=== PATIENT | female | born 1935 | race Caucasian/White ===

== ENCOUNTER 2017-02-20 18:57 | Inpatient (IN) | payer MEDICARE, OTHER ==
[~2017-02-20] VITALS: Ht 154.9 cm; Wt 53.1 kg
[2017-02-20 20:48] LABS: BASO % 0 % (0-3); EOS # 0.1 x10^3/uL (0.0-0.7); EOS % 1 % (0-3); HEMATOCRIT 35.7 % (36.0-47.0); HEMOGLOBIN 12.4 g/dL (12.0-15.5); LYMPH # 1.7 x10^3/uL (1.0-4.8); LYMPH % 28 % (24-48); MEAN CORPUSCULAR HEMOGLOBIN 35 pg (25-35); MEAN CORPUSCULAR HGB CONC 35 g/dL (31-37); MEAN CORPUSCULAR VOLUME 99 fL (79-100); MONO # 0.5 x10^3/uL (0.0-1.1); MONO % 8 % (0-9); NEUT % 63 % (31-73); PLATELET COUNT 221 x10^3/uL (140-400); RED BLOOD COUNT 3.59 x10^6/uL (3.50-5.40); RED CELL DISTRIBUTION WIDTH 13.1 % (11.5-14.5); WHITE BLOOD COUNT 6.3 x10^3/uL (4.0-11.0)
[2017-02-20 20:56] LABS: ALBUMIN 3.6 g/dL (3.4-5.0); ALBUMIN/GLOBULIN RATIO 1.1 (1.0-1.7); CREATININE 1.4 mg/dL (0.6-1.0); GFR 36.1; POTASSIUM 4.8 mmol/L (3.5-5.1); TOTAL BILIRUBIN 0.3 mg/dL (0.2-1.0)
[2017-02-20 21:07] LABS: BILIRUBIN,URINE NEG (NEG); CLARITY,URINE HAZY; COLOR,URINE YELLOW; GLUCOSE,URINE NEG (NEG); NITRITE,URINE NEG (NEG); UROBILINOGEN,URINE 0.2 mg/dL (0.2 mg/dL)
[2017-02-20 21:08] LABS: BACTERIA,URINE 0 /HPF (0-FEW); HYALINE CASTS, URINE MANY /HPF; SQUAMOUS EPITHELIAL CELL,UR MOD /LPF
[2017-02-20] MEDS ORDERED: IV NORMAL SALINE 1,000ML 1,000 ML IV ONE (21:15)
[2017-02-20] MEDS ORDERED: CHOL4POW11 PO (21:44)
[2017-02-20] MEDS ORDERED: CHOL10003 PO (21:44)
[2017-02-20] MEDS ORDERED: TAMS0.4C2 PO (21:44)
[2017-02-20] MEDS ORDERED: CEFD300C PO (21:44)
[2017-02-20] MEDS ORDERED: PANT20TA58 PO (21:44)
[2017-02-20] MEDS ORDERED: POTA20TA4 PO (21:44)
[2017-02-20] MEDS ORDERED: HYDR59LO10 PR (21:44)
[2017-02-20] MEDS ORDERED: DICL100G18 TP (21:44)
[2017-02-20] MEDS ORDERED: ONDA4TAB7 PO (21:44)
[2017-02-20] MEDS ORDERED: LACT1TAB18 PO (21:44)
[2017-02-20] MEDS ORDERED: [UNRECOGNIZED DRUG - CODE] PO (21:44)
[2017-02-20] MEDS ORDERED: LINA5TAB4 PO (21:44)
[2017-02-20] MEDS ORDERED: MEMA14CA PO (21:44)
[2017-02-20] MEDS ORDERED: DONE5TAB56 PO (21:44)
[2017-02-20] MEDS ORDERED: LORA0.5T96 PO ×2 (21:44)
[2017-02-20] MEDS ORDERED: TRAZ50TA15 PO (21:44)
[2017-02-20] MEDS ORDERED: LISI10TA2 PO (21:44)
[2017-02-20] MEDS ORDERED: MAGN400T3 PO (21:44)
[2017-02-20] MEDS ORDERED: FERR-26 PO (21:44)
[2017-02-20] MEDS ORDERED: DEME300T PO (21:44)
[2017-02-20] MEDS ORDERED: INSU100I13 SQ (21:44)
[2017-02-20] MEDS ORDERED: MAG360OR24 PO (21:44)
[2017-02-20] MEDS ORDERED: ACET325T9 PO (21:44)
[2017-02-20] MEDS ORDERED: LOPE2TAB27 PO (21:44)
--- NOTE | 2017-02-20 21:56 | PHYS DOC ---
Past History Past Medical History: Other (dementia) Alcohol Use: None Drug Use: None Adult General Chief Complaint Chief Complaint: PSYCH EVALUATION HPI HPI Patient is a 81-year-old female who was sent into the ER for further evaluation of depression, aggressive behavior, worsening dementia. Patient ED has no current complaints. Patient denies any fevers shakes chills nausea vomiting diarrhea chest pain shortness of breath cough cold runny nose. Apparently the patient was exhibiting attention seeking behavior and laying on the ground and screaming that she had been falling and that she wanted to go to the ER. Patient had multiple episodes of crying while in the ER secondary to known caring about her. Patient is upset that family members have not been seeing her talking her. Review of systems: Constitutional: Denies fever or chills Eyes: Denies change in visual acuity, redness, or eye pain HENT: Denies nasal congestion or sore throat All other systems were reviewed and found to be within normal limits, except as documented in this note. Physical exam: Constitutional: Well developed, well nourished, no acute distress, non-toxic appearance. HENT: Normocephalic, atraumatic, bilateral external ears normal, oropharynx moist, no oral exudates, nose normal. Eyes: PERRLA, EOMI, conjunctiva normal, no discharge. Neck: Normal range of motion, no tenderness, supple, no stridor. Cardiovascular:Heart rate regular rhythm, Lungs & Thorax: Bilateral breath sounds clear to auscultation Abdomen: Bowel sounds normal, soft, no tenderness, no masses, no pulsatile masses. Skin: Warm, dry, no erythema, no rash. Back: No tenderness, no CVA tenderness. Extremities: No tenderness, no cyanosis, no clubbing, ROM intact, no edema. Neurologic: Alert and oriented to person and hospital., normal motor function, normal sensory function, no focal deficits noted. Psychologic: Depressed affect. Assessment and plan: 81-year-old female who presents here today for further evaluation and management of her increasing depression, tearfulness, worsening dementia and behavioral disturbance. Patient's been medically cleared in the ED. Patient had a CBC, CMP, magnesium which were all within normal limits for the patient. Patient was hyponatremic and was given 1 L of normal saline. In reviewing the labs from her facility this appears to be a condition that she has had in the past. Patient clinically does not appear to be dehydrated. This appears to be euvolemic hyponatremia which will need to be worked up further as an outpatient or while in the hospital. Current Medications Current Medications Current Medications Medications (Trade) Dose Ordered Sig/Loretta Start Time Stop Time Status Last Admin Dose Admin Sodium Chloride 1,000 ml @ 1,000 mls/hr 1X ONCE 02/20/17 21:15 02/20/17 22:14 02/20/17 21:15 1,000 MLS/HR Allergies Allergies Allergies Coded Allergies Type Severity Reaction Last Updated Verified No Known Drug Allergies 02/20/17 No Current Patient Data Lab Results Laboratory Tests Test 02/20/17 20:05 02/20/17 20:10 Urine Collection Type Unknown Urine Color Yellow Urine Clarity Hazy Urine pH 5.5 Urine Specific Durand 1.020 Urine Protein Neg (NEG-TRACE) Urine Glucose (UA) Neg mg/dL (NEG) Urine Ketones (Stick) Neg mg/dL (NEG) Urine Blood Neg (NEG) Urine Nitrite Neg (NEG) Urine Bilirubin Neg (NEG) Urine Urobilinogen Dipstick 0.2 mg/dL (0.2 mg/dL) Urine Leukocyte Esterase Neg (NEG) Urine RBC 1-2 /HPF (0-2) Urine WBC 1-4 /HPF (0-4) Urine Squamous Epithelial Cells Mod /LPF Urine Bacteria 0 /HPF (0-FEW) Urine Hyaline Casts Many /HPF Urine Mucus Marked /LPF White Blood Count 6.3 x10^3/uL (4.0-11.0) Red Blood Count 3.59 x10^6/uL (3.50-5.40) Hemoglobin 12.4 g/dL (12.0-15.5) Hematocrit 35.7 % (36.0-47.0) L Mean Corpuscular Volume 99 fL (79-100) Mean Corpuscular Hemoglobin 35 pg (25-35) Mean Corpuscular Hemoglobin Concent 35 g/dL (31-37) Red Cell Distribution Width 13.1 % (11.5-14.5) Platelet Count 221 x10^3/uL (140-400) Neutrophils (%) (Auto) 63 % (31-73) Lymphocytes (%) (Auto) 28 % (24-48) Monocytes (%) (Auto) 8 % (0-9) Eosinophils (%) (Auto) 1 % (0-3) Basophils (%) (Auto) 0 % (0-3) Neutrophils # (Auto) 4.0 x10^3uL (1.8-7.7) Lymphocytes # (Auto) 1.7 x10^3/uL (1.0-4.8) Monocytes # (Auto) 0.5 x10^3/uL (0.0-1.1) Eosinophils # (Auto) 0.1 x10^3/uL (0.0-0.7) Basophils # (Auto) 0.0 x10^3/uL (0.0-0.2) Sodium Level 127 mmol/L (136-145) L Potassium Level 4.8 mmol/L (3.5-5.1) Chloride Level 95 mmol/L (98-107) L Carbon Dioxide Level 23 mmol/L (21-32) Anion Gap 9 (6-14) Blood Urea Nitrogen 12 mg/dL (7-20) Creatinine 1.4 mg/dL (0.6-1.0) H Estimated GFR (Cockcroft-Gault) 36.1 BUN/Creatinine Ratio 9 (6-20) Glucose Level 150 mg/dL (70-99) H Calcium Level 9.0 mg/dL (8.5-10.1) Magnesium Level 2.0 mg/dL (1.8-2.4) Total Bilirubin 0.3 mg/dL (0.2-1.0) Aspartate Amino Transferase (AST) 21 U/L (15-37) Alanine Aminotransferase (ALT) 29 U/L (14-59) Alkaline Phosphatase 106 U/L (46-116) Total Protein 7.0 g/dL (6.4-8.2) Albumin 3.6 g/dL (3.4-5.0) Albumin/Globulin Ratio 1.1 (1.0-1.7) EKG EKG [] Radiology/Procedures Radiology/Procedures [] Course & Med Decision Making Course & Med Decision Making Pertinent Labs and Imaging studies reviewed. (See chart for details) [] Dragon Disclaimer Dragon Disclaimer This electronic medical record was generated, in whole or in part, using a voice recognition dictation system. Departure Departure: Impression: Primary Impression: Dementia Additional Impressions: Agitation Depression Hyponatremia Disposition: ADMITTED INPATIENT Admitting Physician: Other (laith) Condition: STABLE Referrals: SOLA MARTIN DO (PCP) Problem Qualifiers RAY VILLANUEVA MD Feb 20, 2017 21:56
[2017-02-20] MEDS ORDERED: ACETAMINOPHEN 325 MG TABLET PO PRN (22:15)
[2017-02-20] MEDS ORDERED: MAGNESIUM HYDROXIDE 2,400 MG/30 ML ORAL.SUSP. PO PRN (22:15)
[2017-02-20] MEDS ORDERED: METHYL SALICYLATE/MENTHOL TOPICAL OINTMENT 29GM TUBE. TP PRN (22:15)
--- NOTE | 2017-02-20 22:19 | EKG ---
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
[2017-02-20] MEDS ORDERED: LORazepam 0.5 MG TABLET PO PRN (22:30)
[2017-02-20] MEDS: DEMECLOCYCLINE HCL 150 MG TABLET PO SCH (23:30)
[2017-02-20] MEDS: LACTOBACILLUS RHAMNOSUS GG 1 CAPSULE. PO SCH (23:51)
[2017-02-20] MEDS: MEMANTINE 5 MG TABLET. PO SCH (23:51)
[2017-02-20] MEDS: LORazepam 0.5 MG TABLET PO SCH (23:51)
[2017-02-20] MEDS: DONEPEZIL HCL 5 MG TABLET. PO SCH (23:51)
[2017-02-20] MEDS: traZODone 50 MG TABLET. PO SCH (23:52)
[2017-02-21 05:53] VITALS: BP 136/76
[2017-02-21] MEDS: LACTOBACILLUS RHAMNOSUS GG 1 CAPSULE. PO SCH ×3 (09:05→20:47)
[2017-02-21] MEDS: MEMANTINE 5 MG TABLET. PO SCH ×2 (09:05→20:48)
[2017-02-21] MEDS: PANTOPRAZOLE 40 MG TABLET. PO SCH (09:08)
[2017-02-21] MEDS: CHOLESTYRAMINE/ASPARTAME 4 GM PACKET PO SCH ×2 (09:09→20:48)
[2017-02-21] MEDS: TAMSULOSIN 0.4 MG CAP.ER.24H. PO SCH (09:09)
[2017-02-21] MEDS: LORazepam 0.5 MG TABLET PO SCH ×3 (09:09→21:08)
[2017-02-21] MEDS: LINAGLIPTIN 5 MG TABLET PO SCH (09:09)
[2017-02-21] MEDS: LISINOPRIL 10 MG TABLET PO SCH (09:09)
[2017-02-21] MEDS: POTASSIUM CHLORIDE 20 MEQ TABLET.ER. PO SCH ×2 (09:09→17:01)
[2017-02-21] MEDS: MAGNESIUM OXIDE 400 MG TABLET PO SCH ×2 (09:10→20:48)
[2017-02-21] MEDS: FERROUS SULFATE 325 MG TABLET. PO SCH (09:10)
[2017-02-21] MEDS: CHOLECALCIFEROL (VITAMIN D3) 1,000 UNIT TABLET PO SCH (09:10)
[2017-02-21 09:56] LABS: BASO % 0 % (0-3); EOS % 1 % (0-3); HEMATOCRIT 34.7 % (36.0-47.0); HEMOGLOBIN 12.3 g/dL (12.0-15.5); LYMPH # 0.9 x10^3/uL (1.0-4.8); LYMPH % 16 % (24-48); MEAN CORPUSCULAR HEMOGLOBIN 35 pg (25-35); MEAN CORPUSCULAR HGB CONC 35 g/dL (31-37); MEAN CORPUSCULAR VOLUME 100 fL (79-100); MONO # 0.3 x10^3/uL (0.0-1.1); MONO % 5 % (0-9); NEUT # 4.3 x10^3uL (1.8-7.7); NEUT % 77 % (31-73); PLATELET COUNT 211 x10^3/uL (140-400); RED BLOOD COUNT 3.49 x10^6/uL (3.50-5.40); RED CELL DISTRIBUTION WIDTH 13.2 % (11.5-14.5); WHITE BLOOD COUNT 5.6 x10^3/uL (4.0-11.0)
[2017-02-21 10:12] LABS: ALBUMIN 3.3 g/dL (3.4-5.0); CALCIUM 8.9 mg/dL (8.5-10.1); CREATININE 1.2 mg/dL (0.6-1.0); GFR 43.1; MAGNESIUM 1.9 mg/dL (1.8-2.4); POTASSIUM 4.5 mmol/L (3.5-5.1); TOTAL BILIRUBIN 0.3 mg/dL (0.2-1.0); TOTAL PROTEIN 6.7 g/dL (6.4-8.2)
[2017-02-21] MEDS: DEMECLOCYCLINE HCL 150 MG TABLET PO SCH ×2 (10:31→20:47)
[2017-02-21] MEDS: CEFPODOXIME PROXETIL 100 MG TABLET PO SCH ×2 (10:31→20:48)
[2017-02-21] MEDS: DICLOFENAC SODIUM 1% TOPICAL GEL 100GM TUBE. TP SCH ×2 (10:32→20:49)
[2017-02-21 13:28] LABS: THYROID STIM HORMONE (TSH) 1.484 uIU/mL (0.358-3.740)
[2017-02-21] MEDS: MAG HYDROX/AL HYDROX/SIMETH 30 ML ORAL.SUSP PO PRN (16:40)
[2017-02-21 16:58] VITALS: BP 153/77
--- NOTE | 2017-02-21 20:41 | PDOC ---
Exam Note: Fernando Note: Please also refer to the separate dictated note~for this date of service dictated separately.~Patient seen individually. Discussed the patient with Nursing staff reviewed the chart.~Reviewed interim history and current functioning. Reviewed vital signs,~Labs/ Radiology~and current medications noted below. Continue current treatment with the changes noted in the dictated addendum note Assessment: Vital Signs: Vital Signs Date Time Temp Pulse Resp B/P (MAP) Pulse Ox O2 Delivery O2 Flow Rate FiO2 02/21/17 16:58 97.6 91 16 153/77 (102) 91 Room Air I&O Intake and Output 02/21/17 07:00 Intake Total 700 ml Balance 700 ml IV Total 700 ml Labs: Laboratory Tests Test 02/21/17 08:02 02/21/17 09:32 02/21/17 11:51 02/21/17 17:08 Glucose (Fingerstick) 109 mg/dL (70-99) H 159 mg/dL (70-99) H 125 mg/dL (70-99) H White Blood Count 5.6 x10^3/uL (4.0-11.0) Red Blood Count 3.49 x10^6/uL (3.50-5.40) L Hemoglobin 12.3 g/dL (12.0-15.5) Hematocrit 34.7 % (36.0-47.0) L Mean Corpuscular Volume 100 fL (79-100) Mean Corpuscular Hemoglobin 35 pg (25-35) Mean Corpuscular Hemoglobin Concent 35 g/dL (31-37) Red Cell Distribution Width 13.2 % (11.5-14.5) Platelet Count 211 x10^3/uL (140-400) Neutrophils (%) (Auto) 77 % (31-73) H Lymphocytes (%) (Auto) 16 % (24-48) L Monocytes (%) (Auto) 5 % (0-9) Eosinophils (%) (Auto) 1 % (0-3) Basophils (%) (Auto) 0 % (0-3) Neutrophils # (Auto) 4.3 x10^3uL (1.8-7.7) Lymphocytes # (Auto) 0.9 x10^3/uL (1.0-4.8) L Monocytes # (Auto) 0.3 x10^3/uL (0.0-1.1) Eosinophils # (Auto) 0.0 x10^3/uL (0.0-0.7) Basophils # (Auto) 0.0 x10^3/uL (0.0-0.2) Sodium Level 128 mmol/L (136-145) L Potassium Level 4.5 mmol/L (3.5-5.1) Chloride Level 96 mmol/L (98-107) L Carbon Dioxide Level 24 mmol/L (21-32) Anion Gap 8 (6-14) Blood Urea Nitrogen 7 mg/dL (7-20) Creatinine 1.2 mg/dL (0.6-1.0) H Estimated GFR (Cockcroft-Gault) 43.1 BUN/Creatinine Ratio 6 (6-20) Glucose Level 199 mg/dL (70-99) H Calcium Level 8.9 mg/dL (8.5-10.1) Magnesium Level 1.9 mg/dL (1.8-2.4) Total Bilirubin 0.3 mg/dL (0.2-1.0) Aspartate Amino Transferase (AST) 17 U/L (15-37) Alanine Aminotransferase (ALT) 25 U/L (14-59) Alkaline Phosphatase 99 U/L (46-116) Total Protein 6.7 g/dL (6.4-8.2) Albumin 3.3 g/dL (3.4-5.0) L Albumin/Globulin Ratio 1.0 (1.0-1.7) Test 02/21/17 19:14 Glucose (Fingerstick) 104 mg/dL (70-99) H Current Medications: Meds: Current Medications Sodium Chloride 1,000 ml @ 1,000 mls/hr 1X ONCE IV Last administered on 02/20t 21:15; Start 02/20/17 at 21:15; Stop 02/20/17 at 22:14; Status DC Acetaminophen (Tylenol) 650 mg PRN Q6HRS PRN PO PAIN / TEMP; Start 02/20/17 at 22:15; Stop 02/21/17 at 07:13; Status DC Multi-Ingredient Ointment (Analgesic [place]) 1 mario PRN QID PRN TP MUSCLE PAIN; Start 02/20/17 at 22:15 Al Hydroxide/Mg Hydroxide (Mylanta Plus Xs) 15 ml PRN AFTMEALHC PRN PO DYSPEPSIA Last administered on 02/21/17 16:40; Start 02/20/17 at 22:15 Magnesium Hydroxide (Milk Of Magnesia) 2,400 mg PRN QHS PRN PO CONSTIPATION; Start 02/20/17 at 22:15 Donepezil HCl (Aricept) 5 mg QHS PO Last administered on 02/20/17 23:51; Start 02/20/17 at 23:30 Lorazepam (Ativan) 0.5 mg PRN TID PRN PO ANXIETY / AGITATION; Start 02/20/17 at 22:30 Lorazepam (Ativan) 0.5 mg TID PO Last administered on 02/21/17 14:04; Start 02/20/17 at 23:30 Trazodone HCl (Desyrel) 50 mg QHS PO Last administered on 02/20/17 23:52; Start 02/20/17 at 23:30 Memantine (Namenda) 5 mg BID PO Last administered on 02/21/17 09:05; Start 02/20/17 at 23:30 Cholestyramine Resin (Questran Light) 4 gm BID PO Last administered on 09:09; Start 02/21/17 at 09:00 Diclofenac Sodium (Voltaren) 1 mario BID TP Last administered on 02/21/17 10:32 ; Start 02/21/17 at 09:00 Magnesium Oxide (Magnesium Oxide) 400 mg BID PO Last administered on 09:10; Start 02/21/17 at 09:00 Potassium Chloride (Klor-Con) 20 meq BIDWMEALS PO Last administered on 17:01; Start 02/21/17 at 08:00 Cefpodoxime Proxetil (Vantin) 100 mg BID PO Last administered on 02/21/17 10: 31; Start 02/21/17 at 10:15; Stop 02/21/17 at 21:01 Demeclocycline HCl (Declomycin) 300 mg BID PO Last administered on 02/21/17 10:31; Start 02/20/17 at 23:30 Lactobacillus Rhamnosus (Culturelle) 1 cap TID PO Last administered on 14:04; Start 02/20/17 at 23:30 Acetaminophen (Tylenol) 325 mg PRN Q4HRS PRN PO PAIN / TEMP; Start 02/21/17 at 06:45 Vitamin D (Vitamin D3) 1,000 unit DAILY PO Last administered on 02/21/17 09: 10; Start 02/21/17 at 09:00 Ferrous Sulfate (Feosol) 325 mg DAILY PO Last administered on 02/21/17 09:10 ; Start 02/21/17 at 09:00 Lactase (Lactaid) 3,000 unit TIDAC PRN PO Lactose Intolerance; Start 02/21/17 at 06:45 Linagliptin (Tradjenta) 5 mg DAILY PO Last administered on 02/21/17 09:09; Start 02/21/17 at 09:00 Lisinopril (Prinivil) 10 mg DAILY PO Last administered on 02/21/17 09:09; Start 02/21/17 at 09:00 Pantoprazole Sodium (Protonix) 20 mg DAILY PO Last administered on 02/21/17 09:08; Start 02/21/17 at 09:00 Tamsulosin HCl (Flomax) 0.4 mg DAILY PO Last administered on 02/21/17 09:09; Start 02/21/17 at 09:00 Insulin Detemir (Levemir) 20 units QHS SQ ; Start 02/21/17 at 21:00 Active Scripts Active Reported Zofran (Ondansetron Hcl) 4 Mg Tablet 4 Mg PO TIDAC Voltaren (Diclofenac Sodium) 100 Gm Gel..gram. 1 Mario TP BID Trazodone Hcl 50 Mg Tablet 50 Mg PO QHS Tradjenta (Linagliptin) 5 Mg Tablet 5 Mg PO DAILY Tamsulosin Hcl 0.4 Mg Cap.er.24h 0.4 Mg PO DAILY Questran Packet (Cholestyramine (With Sugar)) 4 Gm Powd.pack 1 Packet PO BID Protonix (Pantoprazole Sodium) 20 Mg Tablet.dr 20 Mg PO DAILY Klor-Con M20 (Potassium Chloride) 20 Meq Tab.er.prt 20 Meq PO BID Namenda Xr (Memantine Hcl) 14 Mg Cap.spr.24 14 Mg PO QHS Alum-Mag Hydroxide-Simeth Liq (Mag Hydrox/Al Hydrox/Simeth) 360 Ml Oral.susp 30 Ml PO PRN Q6HRS PRN Magnesium Oxide 400 Mg Tablet 400 Mg PO BID Loperamide (Loperamide Hcl) 2 Mg Tablet 2 Tab PO PRN PRN Loperamide (Loperamide Hcl) 2 Mg Tablet 2 Mg PO PRN PRN Lisinopril 10 Mg Tablet 10 Mg PO DAILY Lantus Solostar (Insulin Glargine,Hum.rec.anlog) 100 Unit/1 Ml Insuln.pen 20 Unit SQ DAILY Lactaid (Lactase) 3,000 Unit Tablet 3,000 Unit PO PRN PRN Ferrous Sulfate 325 Mg Tablet 325 Mg PO DAILY Demeclocycline Hcl 300 Mg Tablet 300 Mg PO BID Vitamin D3 (Cholecalciferol (Vitamin D3)) 1,000 Unit Tablet 1,000 Unit PO DAILY Cefdinir 300 Mg Capsule 300 Mg PO BID Ativan (Lorazepam) 0.5 Mg Tablet 0.5 Mg PO TID Ativan (Lorazepam) 0.5 Mg Tablet 0.5 Mg PO PRN TID PRN Aricept (Donepezil Hcl) 5 Mg Tablet 5 Mg PO QHS Analpram Hc 2.5%-1% Lotion (Hydrocortisone/Pramoxine) 59 Ml Lotion 1 Mario MI PRN TID PRN Acidophilus (Lactobacillus Acidophilus) 1 Each Tablet 1 Cap PO TID Tylenol (Acetaminophen) 325 Mg Tablet 325 Mg PO PRN Q4HRS PRN I have reviewed the current psychotropics carefully including drug interactions. Risk benefit ratio favors no change other than as noted in my dictated progress note. Diagnosis: Problems: (1) Hyponatremia (2) Dementia (3) Depression (4) Agitation KAMRON MENDEZ MD Feb 21, 2017 20:41
[2017-02-21] MEDS: DONEPEZIL HCL 5 MG TABLET. PO SCH (20:47)
[2017-02-21] MEDS: traZODone 50 MG TABLET. PO SCH (20:48)
[2017-02-21] MEDS ORDERED: INSULIN DETEMIR 300 UNITS/3 ML INSULN.PEN. SQ SCH (21:00)
[2017-02-21 21:08] LABS: T3 TOTAL 108 ng/dL (71-180); THYROXINE 9.2 ug/dL (4.5-12.0)
[2017-02-22] MEDS: ACETAMINOPHEN 325 MG TABLET PO PRN ×2 (00:43→06:27)
[2017-02-22 02:12] LABS: HEMOGLOBIN A1C 5.1 % (4.8-5.6)
[2017-02-22 06:06] VITALS: BP 134/68
[2017-02-22] MEDS: traMADol 50 MG TABLET PO PRN (07:36)
[2017-02-22] MEDS: POTASSIUM CHLORIDE 20 MEQ TABLET.ER. PO SCH ×2 (07:36→13:21)
[2017-02-22] MEDS: LACTASE 3,000 UNIT TABLET PO PRN (07:36)
[2017-02-22] MEDS: TAMSULOSIN 0.4 MG CAP.ER.24H. PO SCH (07:36)
[2017-02-22] MEDS: PANTOPRAZOLE 40 MG TABLET. PO SCH (07:37)
[2017-02-22] MEDS: LACTOBACILLUS RHAMNOSUS GG 1 CAPSULE. PO SCH ×3 (07:37→19:51)
[2017-02-22] MEDS: CHOLECALCIFEROL (VITAMIN D3) 1,000 UNIT TABLET PO SCH (07:37)
[2017-02-22] MEDS: FERROUS SULFATE 325 MG TABLET. PO SCH (07:37)
[2017-02-22] MEDS: MEMANTINE 5 MG TABLET. PO SCH ×2 (07:37→19:51)
[2017-02-22] MEDS: MAGNESIUM OXIDE 400 MG TABLET PO SCH ×2 (07:37→19:51)
[2017-02-22] MEDS: LISINOPRIL 10 MG TABLET PO SCH (07:37)
[2017-02-22] MEDS: CHOLESTYRAMINE/ASPARTAME 4 GM PACKET PO SCH ×2 (07:38→19:52)
[2017-02-22] MEDS: LINAGLIPTIN 5 MG TABLET PO SCH (07:38)
[2017-02-22] MEDS: LORazepam 0.5 MG TABLET PO SCH ×3 (07:40→19:51)
[2017-02-22] MEDS: DEMECLOCYCLINE HCL 150 MG TABLET PO SCH ×2 (07:40→19:51)
[2017-02-22] MEDS: DICLOFENAC SODIUM 1% TOPICAL GEL 100GM TUBE. TP SCH ×2 (07:53→19:54)
[2017-02-22] MEDS ORDERED: DEXTROSE ORAL GEL 15 GM TUBE. PO PRN (08:00)
[2017-02-22] MEDS: ACETAMINOPHEN 325 MG TABLET PO SCH ×2 (13:22→19:53)
--- NOTE | 2017-02-22 13:38 | HP ---
ADMIT DATE: 02/20/2017 This is a late dictation. REASON FOR ADMISSION TO THE SENIOR BEHAVIORAL UNIT: This is an 81-year-old female who came from [facility] which is a nursing facility in [place], [place]. Apparently, she has been attention seeking, putting herself on the floor, calling out in pain constantly, increasing agitation with no direction and anxiety. ONSET OF SYMPTOMS: Two months. PAST MEDICAL HISTORY: Currently being treated for urinary tract infection, which was actually completed on 02/20. Current medical problems, dementia, anxiety, depression, gastric ulcer, history of diabetes, muscle weakness, hypertension, irritable bowel, hyperlipidemia, anemia and urinary retention. ALLERGIES: FLUOXETINE and MELATONIN. MEDICATIONS: Reviewed and are available on the MAR. She also has a history of hypoosmolality and hyponatremia. This goes back to 2013 when she was admitted to [facility]. The patient is lying in bed. She states she smoked years ago, but no longer. No problems with alcohol. She could not tell me what she did for a living. She did say she went to [employer] [place], [place] and grew up in [place]. REVIEW OF SYSTEMS: The patient is complaining of bilateral hip pain and stomach pain and states "I have irritable bowel syndrome." Denies fevers, denies sore throat, denies shortness of breath, occasional chest pain and depression. OBJECTIVE: VITAL SIGNS: Blood pressure 134/68, pulse 74, temperature 98.6, respirations 22, pulse ox 99% on room air. Height 61 inches, weight 121.37 pounds. GENERAL: Frail elderly 81-year-old lying in bed. Her overall demeanor is depressed. She does not have her glasses on but can identify 2 fingers in the mid field. HEENT: Her hearing is normal. Her nose was patent. Her throat was clear. She has her own teeth. NECK: Supple, without adenopathy. LUNGS: Clear to auscultation. CARDIOVASCULAR: Distant heart sounds, could not appreciate a murmur. ABDOMEN: Soft. Bowel sounds were positive. Nontender to palpation. EXTREMITIES: Without edema. MUSCULOSKELETAL: Muscle tone is just poor. Generalized weakness on her wax cutter. I could not palpate pain in her hips bilaterally. She does not grimace in pain. NEUROLOGIC: Cranial nerves were intact, able to follow directions. Again, mood is depressed. LABORATORY DATA: Hemoglobin 12.3, hematocrit 34.7. Chemistry: Glucose is 63, 54, 108, 104. Sodium is 128, creatinine 1.2, improved from yesterday's 1.4. Her B12 is 929 and her vitamin D is 28.6. ASSESSMENT: 1. Neurocognitive impairment. 2. Depression. 3. Bilateral hip pain without evidence of probable osteoarthritis. 4. Vitamin D deficiency. 5. Hyponatremia with a previous history. 6. Acute kidney injury with creatinine of 1.4, now 1.2; this is improving. 7. Hypoglycemia. We will review diabetes medication. 8. Fall risk. 9. Stomach pain. PLAN: I increased her Protonix 40 mg for 20. She may have some Mylanta if she needed. We will monitor her sodium closely cut down on her insulin and continue to monitor. HUMZA BETANCOURT DO DR: DEYSI/sabrina JOB#: [id number] / [id number]
[2017-02-22 16:20] VITALS: BP 169/92
[2017-02-22] MEDS ORDERED: LOPERAMIDE 2 MG CAPSULE PO PRN (16:30)
--- NOTE | 2017-02-22 17:04 | PN ---
DATE: 02/21/2017 PSYCHIATRIC PROGRESS NOTE This is a late entry for 02/21/2017, covers elements not covered in my initial note of 02/21/2017. IDENTIFYING DATA: The patient is an 81-year-old female referred to us from [facility] by Dr. Newton, her primary care physician on account of worsening confusion, agitation, and behaviors that were deemed dangerous, unmanageable at the facility. She is noted to be attention seeking, putting herself on the floor, repeatedly calling out in pain constantly. She is increasingly agitated, anxious, difficult to redirect. She had failed outpatient psychiatric interventions resulting in this referral. CHIEF COMPLAINT: "I am okay. Yes, I get forgetful." HISTORY OF PRESENT ILLNESS: The patient has a history of dementia, Alzheimer's vascular type. She has been residing at [facility] for some time, but over the recent past, she has been increasingly anxious, agitated, and restless. She has had sleep and appetite changes, some paranoia, marked somatic preoccupation with perception of increasing amounts of pain. No clear symptoms of bipolar disorder, suicidal or homicidal ideation. PAST PSYCHIATRIC HISTORY: As above. MEDICAL HISTORY: Gastric ulcer disease, diabetes mellitus, muscle weakness, hypertension, irritable bowel syndrome, hyperlipidemia, anemia, urinary retention, hyponatremia, and osteoarthritis. Accu-Cheks a.c. and at bedtime. ALLERGIES: PROZAC AND MELATONIN. CODE STATUS: DNR. DIET: Regular. Medications, she takes it whole. CURRENT PSYCHOTROPICS: Aricept 5 mg at bedtime, Ativan 0.5 mg t.i.d. p.r.n. anxiety, Namenda 5 mg b.i.d., trazodone 50 mg at bedtime. FAMILY HISTORY: Noncontributory. SOCIAL HISTORY: No history of alcohol or drug abuse, physical, sexual or elder abuse. She is not known to be a perpetrator. MENTAL STATUS EXAMINATION: The patient was seen individually the evening of 02/21/2017 in her room. She is oriented to herself and at times to situation, felt she is being here many days, was just admitted the previous evening. Speech is coherent. Mood is somewhat depressed. Affect is mood congruent, unaware of the year, short term memory is impaired somewhat paranoid. No active suicidal or homicidal ideation. Attention span short, language function intact. ASSETS: The patient has stable living at the above snf, supportive family. WEAKNESS: The patient's dementia, delusion, depression. IMPRESSION: Major neurocognitive disorder, Alzheimer, vascular with depression, delusion, behavioral disturbance; anxiety disorder, unspecified; impulse control disorder, unspecified. Rest diagnoses as above. PLAN: Admit to the Geropsychiatry Unit at [facility]. I will see the patient daily individually from a psychiatric standpoint, medical followup per Dr. Kim/Dr. Terrell. Continue current psychotropics. Consider tapering the scheduled Ativan adding Seroquel if paranoia, mood lability, and anxiety persist or SSRI perhaps Zoloft. We will make further decisions after baseline assessment. MAN Arabella MENDEZ MD DR: MERLIN/sabrina JOB#: [id number] / [id number]
[2017-02-22] MEDS: DONEPEZIL HCL 5 MG TABLET. PO SCH (19:51)
[2017-02-22] MEDS: traZODone 50 MG TABLET. PO SCH (19:51)
--- NOTE | 2017-02-22 20:08 | PDOC ---
Exam Note: Fernando Note: Please also refer to the separate dictated note~for this date of service dictated separately.~Patient seen individually. Discussed the patient with Nursing staff reviewed the chart.~Reviewed interim history and current functioning. Reviewed vital signs,~Labs/ Radiology~and current medications noted below. Continue current treatment with the changes noted in the dictated addendum note Assessment: Vital Signs: Vital Signs Date Time Temp Pulse Resp B/P (MAP) Pulse Ox O2 Delivery O2 Flow Rate FiO2 02/22/17 16:20 97.6 73 18 169/92 (117) 100 02/21/17 16:58 Room Air I&O Intake and Output 02/22/17 07:00 Intake Total 720 ml Balance 720 ml Intake Oral 720 ml # Bowel Movements 1 Labs: Laboratory Tests Test 02/22/17 07:25 02/22/17 08:21 02/22/17 11:55 02/22/17 17:14 Glucose (Fingerstick) 54 mg/dL (70-99) L 108 mg/dL (70-99) H 63 mg/dL (70-99) L 82 mg/dL (70-99) Test 02/22/17 19:06 Glucose (Fingerstick) 119 mg/dL (70-99) H Current Medications: Meds: Current Medications Sodium Chloride 1,000 ml @ 1,000 mls/hr 1X ONCE IV Last administered on 02/20 21:15; Start 02/20/17 at 21:15; Stop 02/20/17 at 22:14; Status DC Acetaminophen (Tylenol) 650 mg PRN Q6HRS PRN PO PAIN / TEMP; Start 02/20/17 at 22:15; Stop 02/21/17 at 07:13; Status DC Multi-Ingredient Ointment (Analgesic [place]) 1 mario PRN QID PRN TP MUSCLE PAIN; Start 02/20/17 at 22:15 Al Hydroxide/Mg Hydroxide (Mylanta Plus Xs) 15 ml PRN AFTMEALHC PRN PO DYSPEPSIA Last administered on 02/21/17 16:40; Start 02/20/17 at 22:15 Magnesium Hydroxide (Milk Of Magnesia) 2,400 mg PRN QHS PRN PO CONSTIPATION; Start 02/20/17 at 22:15 Donepezil HCl (Aricept) 5 mg QHS PO Last administered on 02/22/17 19:51; Start 02/20/17 at 23:30 Lorazepam (Ativan) 0.5 mg PRN TID PRN PO ANXIETY / AGITATION; Start 02/20/17 at 22:30 Lorazepam (Ativan) 0.5 mg TID PO Last administered on 02/22/17 19:51; Start 02/20/17 at 23:30; Stop 02/22/17 at 23:29 Trazodone HCl (Desyrel) 50 mg QHS PO Last administered on 02/22/17 19:51; Start 02/20/17 at 23:30 Memantine (Namenda) 5 mg BID PO Last administered on 02/22/17 19:51; Start 02/20/17 at 23:30 Cholestyramine Resin (Questran Light) 4 gm BID PO Last administered on 19:52; Start 02/21/17 at 09:00 Diclofenac Sodium (Voltaren) 1 mario BID TP Last administered on 02/22/17 19:54 ; Start 02/21/17 at 09:00 Magnesium Oxide (Magnesium Oxide) 400 mg BID PO Last administered on 19:51; Start 02/21/17 at 09:00 Potassium Chloride (Klor-Con) 20 meq BIDWMEALS PO Last administered on 13:21; Start 02/21/17 at 08:00 Cefpodoxime Proxetil (Vantin) 100 mg BID PO Last administered on 02/21/17 20: 48; Start 02/21/17 at 10:15; Stop 02/21/17 at 21:01; Status DC Demeclocycline HCl (Declomycin) 300 mg BID PO Last administered on 02/22/17 19:51; Start 02/20/17 at 23:30 Lactobacillus Rhamnosus (Culturelle) 1 cap TID PO Last administered on 19:51; Start 02/20/17 at 23:30 Acetaminophen (Tylenol) 325 mg PRN Q4HRS PRN PO PAIN / TEMP Last administered on 02/22/17 06:27; Start 02/21/17 at 06:45; Stop 02/22/17 at 11:14; Status DC Vitamin D (Vitamin D3) 1,000 unit DAILY PO Last administered on 02/22/17 07: 37; Start 02/21/17 at 09:00; Stop 02/22/17 at 13:09; Status DC Ferrous Sulfate (Feosol) 325 mg DAILY PO Last administered on 02/22/17 07:37 ; Start 02/21/17 at 09:00 Lactase (Lactaid) 3,000 unit TIDAC PRN PO Lactose Intolerance Last administered on 02/22/17 07:36; Start 02/21/17 at 06:45 Linagliptin (Tradjenta) 5 mg DAILY PO Last administered on 02/22/17 07:38; Start 02/21/17 at 09:00 Lisinopril (Prinivil) 10 mg DAILY PO Last administered on 02/22/17 07:37; Start 02/21/17 at 09:00 Pantoprazole Sodium (Protonix) 20 mg DAILY PO Last administered on 02/22/17 07:37; Start 02/21/17 at 09:00; Stop 02/22/17 at 11:14; Status DC Tamsulosin HCl (Flomax) 0.4 mg DAILY PO Last administered on 02/22/17 07:36; Start 02/21/17 at 09:00 Insulin Detemir (Levemir) 20 units QHS SQ Last administered on 02/21/17 20:51 ; Start 02/21/17 at 21:00; Stop 02/22/17 at 13:09; Status DC Tramadol HCl (Ultram) 50 mg PRN Q8HRS PRN PO PAIN Last administered on 07:36; Start 02/22/17 at 07:30 Glucose (Insta-Glucose) 15 gm PRN Q15MIN PRN PO LOW BLOOD SUGAR Last administered on 02/22/17 08:06; Start 02/22/17 at 08:00 Acetaminophen (Tylenol) 650 mg Q8HRS PO Last administered on 02/22/17 19:53; Start 02/22/17 at 14:00 Pantoprazole Sodium (Protonix) 40 mg DAILYAC PO ; Start 02/23/17 at 07:30 Vitamin D (Vitamin D3) 2,000 unit DAILY PO ; Start 02/23/17 at 09:00 Insulin Detemir (Levemir) 10 units QHS SQ Last administered on 02/22/17t 19:54 ; Start 02/22/17 at 21:00 Loperamide HCl (Imodium) 2 mg PRN Q15MIN PRN PO DIARRHEA Last administered on 02/22/17t 17:30; Start 02/22/17 at 16:30 Quetiapine Fumarate (SEROquel) 12.5 mg BID92 PO ; Start 02/23/17 at 09:00 Lorazepam (Ativan) 0.25 mg DAILY PO ; Start 02/23/17 at 09:00; Stop 02/23/17 at 09:01 Lorazepam (Ativan) 0.5 mg BID@1400,2100 PO ; Start 02/23/17 at 14:00; Stop at 21:01 Lorazepam (Ativan) 0.25 mg BID@0900,1400 PO ; Start 02/24/17 at 09:00; Stop at 14:01 Lorazepam (Ativan) 0.5 mg HS PO ; Start 02/24/17 at 21:00; Stop 02/24/17 at 21 :01 Lorazepam (Ativan) 0.25 mg TID PO ; Start 02/25/17 at 09:00; Stop 02/25/17 at 21:01 Lorazepam (Ativan) 0.25 mg BID PO ; Start 02/26/17 at 09:00; Stop 02/26/17 at 21:01 Lorazepam (Ativan) 0.25 mg DAILY PO ; Start 02/27/17 at 09:00; Stop 02/27/17 at 09:01 Active Scripts Active Reported Zofran (Ondansetron Hcl) 4 Mg Tablet 4 Mg PO TIDAC Voltaren (Diclofenac Sodium) 100 Gm Gel..gram. 1 Mario TP BID Trazodone Hcl 50 Mg Tablet 50 Mg PO QHS Tradjenta (Linagliptin) 5 Mg Tablet 5 Mg PO DAILY Tamsulosin Hcl 0.4 Mg Cap.er.24h 0.4 Mg PO DAILY Questran Packet (Cholestyramine (With Sugar)) 4 Gm Powd.pack 1 Packet PO BID Protonix (Pantoprazole Sodium) 20 Mg Tablet.dr 20 Mg PO DAILY Klor-Con M20 (Potassium Chloride) 20 Meq Tab.er.prt 20 Meq PO BID Namenda Xr (Memantine Hcl) 14 Mg Cap.spr.24 14 Mg PO QHS Alum-Mag Hydroxide-Simeth Liq (Mag Hydrox/Al Hydrox/Simeth) 360 Ml Oral.susp 30 Ml PO PRN Q6HRS PRN Magnesium Oxide 400 Mg Tablet 400 Mg PO BID Loperamide (Loperamide Hcl) 2 Mg Tablet 2 Tab PO PRN PRN Loperamide (Loperamide Hcl) 2 Mg Tablet 2 Mg PO PRN PRN Lisinopril 10 Mg Tablet 10 Mg PO DAILY Lantus Solostar (Insulin Glargine,Hum.rec.anlog) 100 Unit/1 Ml Insuln.pen 20 Unit SQ DAILY Lactaid (Lactase) 3,000 Unit Tablet 3,000 Unit PO PRN PRN Ferrous Sulfate 325 Mg Tablet 325 Mg PO DAILY Demeclocycline Hcl 300 Mg Tablet 300 Mg PO BID Vitamin D3 (Cholecalciferol (Vitamin D3)) 1,000 Unit Tablet 1,000 Unit PO DAILY Cefdinir 300 Mg Capsule 300 Mg PO BID Ativan (Lorazepam) 0.5 Mg Tablet 0.5 Mg PO TID Ativan (Lorazepam) 0.5 Mg Tablet 0.5 Mg PO PRN TID PRN Aricept (Donepezil Hcl) 5 Mg Tablet 5 Mg PO QHS Analpram Hc 2.5%-1% Lotion (Hydrocortisone/Pramoxine) 59 Ml Lotion 1 Mario [place] PRN TID PRN Acidophilus (Lactobacillus Acidophilus) 1 Each Tablet 1 Cap PO TID Tylenol (Acetaminophen) 325 Mg Tablet 325 Mg PO PRN Q4HRS PRN I have reviewed the current psychotropics carefully including drug interactions. Risk benefit ratio favors no change other than as noted in my dictated progress note. Diagnosis: Problems: (1) Hyponatremia (2) Dementia (3) Depression (4) Agitation KAMRON MENDEZ MD Feb 22, 2017 20:08
[2017-02-22] MEDS ORDERED: INSULIN DETEMIR 300 UNITS/3 ML INSULN.PEN. SQ SCH (21:00)
[2017-02-23] MEDS: ACETAMINOPHEN 325 MG TABLET PO SCH ×3 (05:53→19:55)
[2017-02-23 05:56] VITALS: BP 154/72
[2017-02-23] MEDS: LINAGLIPTIN 5 MG TABLET PO SCH (07:51)
[2017-02-23] MEDS: POTASSIUM CHLORIDE 20 MEQ TABLET.ER. PO SCH ×2 (07:51→14:03)
[2017-02-23] MEDS: DEMECLOCYCLINE HCL 150 MG TABLET PO SCH ×2 (07:51→19:57)
[2017-02-23] MEDS: LACTOBACILLUS RHAMNOSUS GG 1 CAPSULE. PO SCH ×3 (07:52→19:54)
[2017-02-23] MEDS: MAGNESIUM OXIDE 400 MG TABLET PO SCH ×2 (07:52→19:55)
[2017-02-23] MEDS: FERROUS SULFATE 325 MG TABLET. PO SCH (07:52)
[2017-02-23] MEDS: MEMANTINE 5 MG TABLET. PO SCH ×2 (07:52→19:55)
[2017-02-23] MEDS: LISINOPRIL 10 MG TABLET PO SCH (07:52)
[2017-02-23] MEDS: TAMSULOSIN 0.4 MG CAP.ER.24H. PO SCH (07:53)
[2017-02-23] MEDS: PANTOPRAZOLE 40 MG TABLET. PO SCH (07:56)
[2017-02-23] MEDS: CHOLESTYRAMINE/ASPARTAME 4 GM PACKET PO SCH ×2 (07:57→19:55)
[2017-02-23] MEDS: DICLOFENAC SODIUM 1% TOPICAL GEL 100GM TUBE. TP SCH ×2 (07:58→19:55)
[2017-02-23] MEDS: QUEtiapine 25 MG TABLET. PO SCH ×2 (08:00→14:00)
[2017-02-23] MEDS: CHOLECALCIFEROL (VITAMIN D3) 1,000 UNIT TABLET PO SCH (08:00)
[2017-02-23] MEDS ORDERED: LORazepam 0.5 MG TABLET PO SCH (09:00)
[2017-02-23] MEDS: LORazepam 0.5 MG TABLET PO SCH ×2 (14:03→19:54)
[2017-02-23 16:04] VITALS: BP 159/76
[2017-02-23] MEDS: DONEPEZIL HCL 5 MG TABLET. PO SCH (19:54)
[2017-02-23] MEDS: traZODone 50 MG TABLET. PO SCH (19:55)
[2017-02-23] MEDS: INSULIN DETEMIR 300 UNITS/3 ML INSULN.PEN. SQ SCH (19:57)
--- NOTE | 2017-02-23 21:19 | PDOC ---
Exam Note: Fernando Note: Please also refer to the separate dictated note~for this date of service dictated separately.~Patient seen individually. Discussed the patient with Nursing staff reviewed the chart.~Reviewed interim history and current functioning. Reviewed vital signs,~Labs/ Radiology~and current medications noted below. Continue current treatment with the changes noted in the dictated addendum note Assessment: Vital Signs: Vital Signs Date Time Temp Pulse Resp B/P (MAP) Pulse Ox O2 Delivery O2 Flow Rate FiO2 02/23/17 16:04 98.3 96 16 159/76 (103) 99 02/21/17 16:58 Room Air I&O Intake and Output 02/23/17 07:00 Intake Total 360 ml Balance 360 ml Intake Oral 360 ml # Bowel Movements 1 Labs: Laboratory Tests Test 02/23/17 07:36 02/23/17 09:35 02/23/17 11:26 02/23/17 16:55 Glucose (Fingerstick) 57 mg/dL (70-99) L 102 mg/dL (70-99) H 117 mg/dL (70-99) H 148 mg/dL (70-99) H Test 02/23/17 19:07 Glucose (Fingerstick) 107 mg/dL (70-99) H Current Medications: Meds: Current Medications Sodium Chloride 1,000 ml @ 1,000 mls/hr 1X ONCE IV Last administered on 02/20 21:15; Start 02/20/17 at 21:15; Stop 02/20/17 at 22:14; Status DC Acetaminophen (Tylenol) 650 mg PRN Q6HRS PRN PO PAIN / TEMP; Start 02/20/17 at 22:15; Stop 02/21/17 at 07:13; Status DC Multi-Ingredient Ointment (Analgesic [place]) 1 mario PRN QID PRN TP MUSCLE PAIN; Start 02/20/17 at 22:15 Al Hydroxide/Mg Hydroxide (Mylanta Plus Xs) 15 ml PRN AFTMEALHC PRN PO DYSPEPSIA Last administered on 02/21/17 16:40; Start 02/20/17 at 22:15 Magnesium Hydroxide (Milk Of Magnesia) 2,400 mg PRN QHS PRN PO CONSTIPATION; Start 02/20/17 at 22:15 Donepezil HCl (Aricept) 5 mg QHS PO Last administered on 02/23/17 19:54; Start 02/20/17 at 23:30 Lorazepam (Ativan) 0.5 mg PRN TID PRN PO ANXIETY / AGITATION; Start 02/20/17 at 22:30 Lorazepam (Ativan) 0.5 mg TID PO Last administered on 02/22/17 19:51; Start 02/20/17 at 23:30; Stop 02/22/17 at 23:29; Status DC Trazodone HCl (Desyrel) 50 mg QHS PO Last administered on 02/23/17 19:55; Start 02/20/17 at 23:30 Memantine (Namenda) 5 mg BID PO Last administered on 02/23/17 19:55; Start 02/20/17 at 23:30 Cholestyramine Resin (Questran Light) 4 gm BID PO Last administered on 19:55; Start 02/21/17 at 09:00 Diclofenac Sodium (Voltaren) 1 mario BID TP Last administered on 02/23/17 19:55 ; Start 02/21/17 at 09:00 Magnesium Oxide (Magnesium Oxide) 400 mg BID PO Last administered on 19:55; Start 02/21/17 at 09:00 Potassium Chloride (Klor-Con) 20 meq BIDWMEALS PO Last administered on 14:03; Start 02/21/17 at 08:00 Cefpodoxime Proxetil (Vantin) 100 mg BID PO Last administered on 02/21/17 20: 48; Start 02/21/17 at 10:15; Stop 02/21/17 at 21:01; Status DC Demeclocycline HCl (Declomycin) 300 mg BID PO Last administered on 02/23/17 19:57; Start 02/20/17 at 23:30 Lactobacillus Rhamnosus (Culturelle) 1 cap TID PO Last administered on 19:54; Start 02/20/17 at 23:30 Acetaminophen (Tylenol) 325 mg PRN Q4HRS PRN PO PAIN / TEMP Last administered on 02/22/17 06:27; Start 02/21/17 at 06:45; Stop 02/22/17 at 11:14; Status DC Vitamin D (Vitamin D3) 1,000 unit DAILY PO Last administered on 02/22/17 07: 37; Start 02/21/17 at 09:00; Stop 02/22/17 at 13:09; Status DC Ferrous Sulfate (Feosol) 325 mg DAILY PO Last administered on 02/23/17 07:52 ; Start 02/21/17 at 09:00 Lactase (Lactaid) 3,000 unit TIDAC PRN PO Lactose Intolerance Last administered on 02/22/17 07:36; Start 02/21/17 at 06:45 Linagliptin (Tradjenta) 5 mg DAILY PO Last administered on 02/23/17 07:51; Start 02/21/17 at 09:00 Lisinopril (Prinivil) 10 mg DAILY PO Last administered on 02/23/17 07:52; Start 02/21/17 at 09:00 Pantoprazole Sodium (Protonix) 20 mg DAILY PO Last administered on 02/22/17 07:37; Start 02/21/17 at 09:00; Stop 02/22/17 at 11:14; Status DC Tamsulosin HCl (Flomax) 0.4 mg DAILY PO Last administered on 02/23/17 07:53; Start 02/21/17 at 09:00 Insulin Detemir (Levemir) 20 units QHS SQ Last administered on 02/21/17 20:51 ; Start 02/21/17 at 21:00; Stop 02/22/17 at 13:09; Status DC Tramadol HCl (Ultram) 50 mg PRN Q8HRS PRN PO PAIN Last administered on 07:36; Start 02/22/17 at 07:30 Glucose (Insta-Glucose) 15 gm PRN Q15MIN PRN PO LOW BLOOD SUGAR Last administered on 02/22/17 08:06; Start 02/22/17 at 08:00 Acetaminophen (Tylenol) 650 mg Q8HRS PO Last administered on 02/23/17 19:55; Start 02/22/17 at 14:00 Pantoprazole Sodium (Protonix) 40 mg DAILYAC PO Last administered on 07:56; Start 02/23/17 at 07:30 Vitamin D (Vitamin D3) 2,000 unit DAILY PO Last administered on 02/23/17 08: 00; Start 02/23/17 at 09:00 Insulin Detemir (Levemir) 10 units QHS SQ Last administered on 02/22/17 19:54 ; Start 02/22/17 at 21:00; Stop 02/23/17 at 11:02; Status DC Loperamide HCl (Imodium) 2 mg PRN Q15MIN PRN PO DIARRHEA Last administered on 02/22/17 17:30; Start 02/22/17 at 16:30 Quetiapine Fumarate (SEROquel) 12.5 mg BID92 PO Last administered on 14:00; Start 02/23/17 at 09:00 Lorazepam (Ativan) 0.25 mg DAILY PO Last administered on 02/23/17 07:52; Start 02/23/17 at 09:00; Stop 02/23/17 at 09:01; Status DC Lorazepam (Ativan) 0.5 mg BID@1400,2100 PO Last administered on 02/23/17 19: 54; Start 02/23/17 at 14:00; Stop 02/23/17 at 21:01; Status DC Lorazepam (Ativan) 0.25 mg BID@0900,1400 PO ; Start 02/24/17 at 09:00; Stop at 14:01 Lorazepam (Ativan) 0.5 mg HS PO ; Start 02/24/17 at 21:00; Stop 02/24/17 at 21 :01 Lorazepam (Ativan) 0.25 mg TID PO ; Start 02/25/17 at 09:00; Stop 02/25/17 at 21:01 Lorazepam (Ativan) 0.25 mg BID PO ; Start 02/26/17 at 09:00; Stop 02/26/17 at 21:01 Lorazepam (Ativan) 0.25 mg DAILY PO ; Start 02/27/17 at 09:00; Stop 02/27/17 at 09:01 Insulin Detemir (Levemir) 5 units QHS SQ Last administered on 02/23/17 19:57 ; Start 02/23/17 at 21:00 Quetiapine Fumarate (SEROquel) 12.5 mg DAILYWSUP PO ; Start 02/24/17 at 17:00 Active Scripts Active Reported Zofran (Ondansetron Hcl) 4 Mg Tablet 4 Mg PO TIDAC Voltaren (Diclofenac Sodium) 100 Gm Gel..gram. 1 Mario TP BID Trazodone Hcl 50 Mg Tablet 50 Mg PO QHS Tradjenta (Linagliptin) 5 Mg Tablet 5 Mg PO DAILY Tamsulosin Hcl 0.4 Mg Cap.er.24h 0.4 Mg PO DAILY Questran Packet (Cholestyramine (With Sugar)) 4 Gm Powd.pack 1 Packet PO BID Protonix (Pantoprazole Sodium) 20 Mg Tablet.dr 20 Mg PO DAILY Klor-Con M20 (Potassium Chloride) 20 Meq Tab.er.prt 20 Meq PO BID Namenda Xr (Memantine Hcl) 14 Mg Cap.spr.24 14 Mg PO QHS Alum-Mag Hydroxide-Simeth Liq (Mag Hydrox/Al Hydrox/Simeth) 360 Ml Oral.susp 30 Ml PO PRN Q6HRS PRN Magnesium Oxide 400 Mg Tablet 400 Mg PO BID Loperamide (Loperamide Hcl) 2 Mg Tablet 2 Tab PO PRN PRN Loperamide (Loperamide Hcl) 2 Mg Tablet 2 Mg PO PRN PRN Lisinopril 10 Mg Tablet 10 Mg PO DAILY Lantus Solostar (Insulin Glargine,Hum.rec.anlog) 100 Unit/1 Ml Insuln.pen 20 Unit SQ DAILY Lactaid (Lactase) 3,000 Unit Tablet 3,000 Unit PO PRN PRN Ferrous Sulfate 325 Mg Tablet 325 Mg PO DAILY Demeclocycline Hcl 300 Mg Tablet 300 Mg PO BID Vitamin D3 (Cholecalciferol (Vitamin D3)) 1,000 Unit Tablet 1,000 Unit PO DAILY Cefdinir 300 Mg Capsule 300 Mg PO BID Ativan (Lorazepam) 0.5 Mg Tablet 0.5 Mg PO TID Ativan (Lorazepam) 0.5 Mg Tablet 0.5 Mg PO PRN TID PRN Aricept (Donepezil Hcl) 5 Mg Tablet 5 Mg PO QHS Analpram Hc 2.5%-1% Lotion (Hydrocortisone/Pramoxine) 59 Ml Lotion 1 Mario [place] PRN TID PRN Acidophilus (Lactobacillus Acidophilus) 1 Each Tablet 1 Cap PO TID Tylenol (Acetaminophen) 325 Mg Tablet 325 Mg PO PRN Q4HRS PRN I have reviewed the current psychotropics carefully including drug interactions. Risk benefit ratio favors no change other than as noted in my dictated progress note. Diagnosis: Problems: (1) Hyponatremia (2) Dementia (3) Depression (4) Agitation KAMRON MENDEZ MD Feb 23, 2017 21:19
[2017-02-24 06:19] VITALS: BP 137/74
[2017-02-24] MEDS: ACETAMINOPHEN 325 MG TABLET PO SCH ×3 (06:34→20:30)
[2017-02-24] MEDS: CHOLESTYRAMINE/ASPARTAME 4 GM PACKET PO SCH ×2 (07:48→20:20)
[2017-02-24] MEDS: QUEtiapine 25 MG TABLET. PO SCH ×3 (07:49→17:00)
[2017-02-24] MEDS: PANTOPRAZOLE 40 MG TABLET. PO SCH (07:49)
[2017-02-24] MEDS: LISINOPRIL 10 MG TABLET PO SCH (07:49)
[2017-02-24] MEDS: CHOLECALCIFEROL (VITAMIN D3) 1,000 UNIT TABLET PO SCH (07:49)
[2017-02-24] MEDS: TAMSULOSIN 0.4 MG CAP.ER.24H. PO SCH (07:49)
[2017-02-24] MEDS: LACTASE 3,000 UNIT TABLET PO PRN ×2 (07:50→13:59)
[2017-02-24] MEDS: FERROUS SULFATE 325 MG TABLET. PO SCH (07:50)
[2017-02-24] MEDS: MEMANTINE 5 MG TABLET. PO SCH ×2 (07:50→20:20)
[2017-02-24] MEDS: LACTOBACILLUS RHAMNOSUS GG 1 CAPSULE. PO SCH ×3 (07:50→20:20)
[2017-02-24] MEDS: MAGNESIUM OXIDE 400 MG TABLET PO SCH ×2 (07:50→20:19)
[2017-02-24] MEDS: POTASSIUM CHLORIDE 20 MEQ TABLET.ER. PO SCH ×2 (07:50→17:00)
[2017-02-24] MEDS: LINAGLIPTIN 5 MG TABLET PO SCH (07:50)
[2017-02-24] MEDS: DEMECLOCYCLINE HCL 150 MG TABLET PO SCH ×2 (07:50→20:24)
[2017-02-24] MEDS: DICLOFENAC SODIUM 1% TOPICAL GEL 100GM TUBE. TP SCH ×2 (07:51→20:30)
[2017-02-24] MEDS: LORazepam 0.5 MG TABLET PO SCH ×2 (07:52→13:59)
[2017-02-24] MEDS: traMADol 50 MG TABLET PO PRN (08:04)
[2017-02-24 16:10] VITALS: BP 97/60
--- NOTE | 2017-02-24 19:20 | PN ---
DATE: 02/22/2017 PSYCHIATRIC PROGRESS NOTE This is a late entry 02/22/2017 covers elements not covered in my initial note 02/22/2017. SUBJECTIVE: Met with the patient in the evening of 02/22/2017. The patient was crying and tearful in the morning and complained of pain, received tramadol. Blood sugar somewhat low, defer to Dr. Kim. Ativan is being tapered. As I met with her, she was still complaining of chronic pain, vague pain in her leg also. REVIEW OF SYSTEMS: No CV, , pulmonary, eye system symptoms on review. Reliability is poor. MENTAL STATUS EXAM: Oriented to herself. Insight, judgment, recent and remote memory, attention, concentration, fund of knowledge poor, consistent with her diagnosis mentioned in my initial note. PLAN: Continue to her current psychotropics mentioned in my initial note. Taper the Ativan reducing by 0.25 mg every 3 days till it is discontinued. Start Seroquel 12.5 mg at 9:00 a.m., 2:00 p.m. Rest unchanged from initial note. May need to increase Seroquel further as we reduced the Ativan. MAN Arabella MENDEZ MD DR: MERLIN/sabrina JOB#: [id number] / [id number]
--- NOTE | 2017-02-24 20:01 | PN ---
DATE: 02/23/2017 PSYCHIATRIC PROGRESS NOTE This late entry 02/23/2017 covers elements not covered in my initial note of 02/23/2017. SUBJECTIVE: She did well all day supper time, she was complaining of some vague abdominal and lower extremity pain, rectal pain, will defer to Dr. Kim. I met with her in her room. REVIEW OF SYSTEMS: No CV, , pulmonary, eye system symptoms on review, but pain is vague as I met with her. Reliability poor. MENTAL STATUS EXAM: Oriented to herself. Insight, judgment, recent and remote memory, attention, concentration, fund of knowledge poor, consistent with her diagnosis mentioned in my initial note. PLAN: Increase Seroquel from 12.5 mg twice a day to 12.5 mg 3 times a day. Rest unchanged from initial note. MAN Arabella MENDEZ MD DR: MERLIN/sabrina JOB#: [id number] / [id number]
[2017-02-24] MEDS: DONEPEZIL HCL 5 MG TABLET. PO SCH (20:19)
[2017-02-24] MEDS: traZODone 50 MG TABLET. PO SCH (20:20)
--- NOTE | 2017-02-24 20:22 | PDOC ---
Exam Note: Fernando Note: Please also refer to the separate dictated note~for this date of service dictated separately.~Patient seen individually. Discussed the patient with Nursing staff reviewed the chart.~Reviewed interim history and current functioning. Reviewed vital signs,~Labs/ Radiology~and current medications noted below. Continue current treatment with the changes noted in the dictated addendum note Assessment: Vital Signs: Vital Signs Date Time Temp Pulse Resp B/P (MAP) Pulse Ox O2 Delivery O2 Flow Rate FiO2 02/24/17 16:10 97.5 84 18 97/60 (72) 100 02/21/17 16:58 Room Air I&O Intake and Output 02/24/17 07:00 Intake Total 600 ml Balance 600 ml Intake Oral 600 ml Labs: Laboratory Tests Test 02/24/17 07:32 02/24/17 11:27 02/24/17 16:35 02/24/17 19:10 Glucose (Fingerstick) 80 mg/dL (70-99) 171 mg/dL (70-99) H 122 mg/dL (70-99) H 138 mg/dL (70-99) H Current Medications: Meds: Current Medications Sodium Chloride 1,000 ml @ 1,000 mls/hr 1X ONCE IV Last administered on 02/20 21:15; Start 02/20/17 at 21:15; Stop 02/20/17 at 22:14; Status DC Acetaminophen (Tylenol) 650 mg PRN Q6HRS PRN PO PAIN / TEMP; Start 02/20/17 at 22:15; Stop 02/21/17 at 07:13; Status DC Multi-Ingredient Ointment (Analgesic Dendron) 1 mario PRN QID PRN TP MUSCLE PAIN; Start 02/20/17 at 22:15 Al Hydroxide/Mg Hydroxide (Mylanta Plus Xs) 15 ml PRN AFTMEALHC PRN PO DYSPEPSIA Last administered on 02/21/17 16:40; Start 02/20/17 at 22:15 Magnesium Hydroxide (Milk Of Magnesia) 2,400 mg PRN QHS PRN PO CONSTIPATION; Start 02/20/17 at 22:15 Donepezil HCl (Aricept) 5 mg QHS PO Last administered on 02/23/17 19:54; Start 02/20/17 at 23:30 Lorazepam (Ativan) 0.5 mg PRN TID PRN PO ANXIETY / AGITATION; Start 02/20/17 at 22:30 Lorazepam (Ativan) 0.5 mg TID PO Last administered on 02/22/17 19:51; Start 02/20/17 at 23:30; Stop 02/22/17 at 23:29; Status DC Trazodone HCl (Desyrel) 50 mg QHS PO Last administered on 02/23/17 19:55; Start 02/20/17 at 23:30 Memantine (Namenda) 5 mg BID PO Last administered on 02/24/17 07:50; Start 02/20/17 at 23:30 Cholestyramine Resin (Questran Light) 4 gm BID PO Last administered on 07:48; Start 02/21/17 at 09:00 Diclofenac Sodium (Voltaren) 1 mario BID TP Last administered on 02/24/17 07:51 ; Start 02/21/17 at 09:00 Magnesium Oxide (Magnesium Oxide) 400 mg BID PO Last administered on 07:50; Start 02/21/17 at 09:00 Potassium Chloride (Klor-Con) 20 meq BIDWMEALS PO Last administered on 17:00; Start 02/21/17 at 08:00 Cefpodoxime Proxetil (Vantin) 100 mg BID PO Last administered on 02/21/17 20: 48; Start 02/21/17 at 10:15; Stop 02/21/17 at 21:01; Status DC Demeclocycline HCl (Declomycin) 300 mg BID PO Last administered on 02/24/17 07:50; Start 02/20/17 at 23:30 Lactobacillus Rhamnosus (Culturelle) 1 cap TID PO Last administered on 14:00; Start 02/20/17 at 23:30 Acetaminophen (Tylenol) 325 mg PRN Q4HRS PRN PO PAIN / TEMP Last administered on 02/22/17 06:27; Start 02/21/17 at 06:45; Stop 02/22/17 at 11:14; Status DC Vitamin D (Vitamin D3) 1,000 unit DAILY PO Last administered on 02/22/17 07: 37; Start 02/21/17 at 09:00; Stop 02/22/17 at 13:09; Status DC Ferrous Sulfate (Feosol) 325 mg DAILY PO Last administered on 02/24/17 07:50 ; Start 02/21/17 at 09:00 Lactase (Lactaid) 3,000 unit TIDAC PRN PO Lactose Intolerance Last administered on 02/24/17 13:59; Start 02/21/17 at 06:45 Linagliptin (Tradjenta) 5 mg DAILY PO Last administered on 02/24/17 07:50; Start 02/21/17 at 09:00 Lisinopril (Prinivil) 10 mg DAILY PO Last administered on 02/24/17 07:49; Start 02/21/17 at 09:00 Pantoprazole Sodium (Protonix) 20 mg DAILY PO Last administered on 02/22/17 07:37; Start 02/21/17 at 09:00; Stop 02/22/17 at 11:14; Status DC Tamsulosin HCl (Flomax) 0.4 mg DAILY PO Last administered on 02/24/17 07:49; Start 02/21/17 at 09:00 Insulin Detemir (Levemir) 20 units QHS SQ Last administered on 02/21/17 20:51 ; Start 02/21/17 at 21:00; Stop 02/22/17 at 13:09; Status DC Tramadol HCl (Ultram) 50 mg PRN Q8HRS PRN PO PAIN Last administered on 08:04; Start 02/22/17 at 07:30 Glucose (Insta-Glucose) 15 gm PRN Q15MIN PRN PO LOW BLOOD SUGAR Last administered on 02/22/17 08:06; Start 02/22/17 at 08:00 Acetaminophen (Tylenol) 650 mg Q8HRS PO Last administered on 02/24/17 14:00; Start 02/22/17 at 14:00 Pantoprazole Sodium (Protonix) 40 mg DAILYAC PO Last administered on 07:49; Start 02/23/17 at 07:30 Vitamin D (Vitamin D3) 2,000 unit DAILY PO Last administered on 02/24/17 07: 49; Start 02/23/17 at 09:00 Insulin Detemir (Levemir) 10 units QHS SQ Last administered on 02/22/17 19:54 ; Start 02/22/17 at 21:00; Stop 02/23/17 at 11:02; Status DC Loperamide HCl (Imodium) 2 mg PRN Q15MIN PRN PO DIARRHEA Last administered on 02/22/17 17:30; Start 02/22/17 at 16:30 Quetiapine Fumarate (SEROquel) 12.5 mg BID92 PO Last administered on 14:00; Start 02/23/17 at 09:00 Lorazepam (Ativan) 0.25 mg DAILY PO Last administered on 02/23/17 07:52; Start 02/23/17 at 09:00; Stop 02/23/17 at 09:01; Status DC Lorazepam (Ativan) 0.5 mg BID@1400,2100 PO Last administered on 02/23/17 19: 54; Start 02/23/17 at 14:00; Stop 02/23/17 at 21:01; Status DC Lorazepam (Ativan) 0.25 mg BID@0900,1400 PO Last administered on 02/24/17 13: 59; Start 02/24/17 at 09:00; Stop 02/24/17 at 14:01; Status DC Lorazepam (Ativan) 0.5 mg HS PO ; Start 02/24/17 at 21:00; Stop 02/24/17 at 21 :01 Lorazepam (Ativan) 0.25 mg TID PO ; Start 02/25/17 at 09:00; Stop 02/25/17 at 21:01 Lorazepam (Ativan) 0.25 mg BID PO ; Start 02/26/17 at 09:00; Stop 02/26/17 at 21:01 Lorazepam (Ativan) 0.25 mg DAILY PO ; Start 02/27/17 at 09:00; Stop 02/27/17 at 09:01 Insulin Detemir (Levemir) 5 units QHS SQ Last administered on 02/23/17 19:57 ; Start 02/23/17 at 21:00 Quetiapine Fumarate (SEROquel) 12.5 mg DAILYWSUP PO Last administered on 17:00; Start 02/24/17 at 17:00 Active Scripts Active Reported Zofran (Ondansetron Hcl) 4 Mg Tablet 4 Mg PO TIDAC Voltaren (Diclofenac Sodium) 100 Gm Gel..gram. 1 Mraio TP BID Trazodone Hcl 50 Mg Tablet 50 Mg PO QHS Tradjenta (Linagliptin) 5 Mg Tablet 5 Mg PO DAILY Tamsulosin Hcl 0.4 Mg Cap.er.24h 0.4 Mg PO DAILY Questran Packet (Cholestyramine (With Sugar)) 4 Gm Powd.pack 1 Packet PO BID Protonix (Pantoprazole Sodium) 20 Mg Tablet.dr 20 Mg PO DAILY Klor-Con M20 (Potassium Chloride) 20 Meq Tab.er.prt 20 Meq PO BID Namenda Xr (Memantine Hcl) 14 Mg Cap.spr.24 14 Mg PO QHS Alum-Mag Hydroxide-Simeth Liq (Mag Hydrox/Al Hydrox/Simeth) 360 Ml Oral.susp 30 Ml PO PRN Q6HRS PRN Magnesium Oxide 400 Mg Tablet 400 Mg PO BID Loperamide (Loperamide Hcl) 2 Mg Tablet 2 Tab PO PRN PRN Loperamide (Loperamide Hcl) 2 Mg Tablet 2 Mg PO PRN PRN Lisinopril 10 Mg Tablet 10 Mg PO DAILY Lantus Solostar (Insulin Glargine,Hum.rec.anlog) 100 Unit/1 Ml Insuln.pen 20 Unit SQ DAILY Lactaid (Lactase) 3,000 Unit Tablet 3,000 Unit PO PRN PRN Ferrous Sulfate 325 Mg Tablet 325 Mg PO DAILY Demeclocycline Hcl 300 Mg Tablet 300 Mg PO BID Vitamin D3 (Cholecalciferol (Vitamin D3)) 1,000 Unit Tablet 1,000 Unit PO DAILY Cefdinir 300 Mg Capsule 300 Mg PO BID Ativan (Lorazepam) 0.5 Mg Tablet 0.5 Mg PO TID Ativan (Lorazepam) 0.5 Mg Tablet 0.5 Mg PO PRN TID PRN Aricept (Donepezil Hcl) 5 Mg Tablet 5 Mg PO QHS Analpram Hc 2.5%-1% Lotion (Hydrocortisone/Pramoxine) 59 Ml Lotion 1 Mario CA PRN TID PRN Acidophilus (Lactobacillus Acidophilus) 1 Each Tablet 1 Cap PO TID Tylenol (Acetaminophen) 325 Mg Tablet 325 Mg PO PRN Q4HRS PRN I have reviewed the current psychotropics carefully including drug interactions. Risk benefit ratio favors no change other than as noted in my dictated progress note. Diagnosis: Problems: (1) Hyponatremia (2) Dementia (3) Depression (4) Agitation KAMRON MENDEZ MD Feb 24, 2017 20:21
[2017-02-24] MEDS: INSULIN DETEMIR 300 UNITS/3 ML INSULN.PEN. SQ SCH (20:28)
[2017-02-24] MEDS ORDERED: LORazepam 0.5 MG TABLET PO SCH (21:00)
[2017-02-25 06:00] VITALS: BP 129/65
[2017-02-25] MEDS: ACETAMINOPHEN 325 MG TABLET PO SCH ×3 (06:08→20:14)
[2017-02-25] MEDS: MAGNESIUM OXIDE 400 MG TABLET PO SCH ×2 (08:49→20:14)
[2017-02-25] MEDS: CHOLECALCIFEROL (VITAMIN D3) 1,000 UNIT TABLET PO SCH (08:49)
[2017-02-25] MEDS: LINAGLIPTIN 5 MG TABLET PO SCH (08:49)
[2017-02-25] MEDS: LACTASE 3,000 UNIT TABLET PO PRN ×2 (08:49→20:14)
[2017-02-25] MEDS: LISINOPRIL 10 MG TABLET PO SCH (08:49)
[2017-02-25] MEDS: POTASSIUM CHLORIDE 20 MEQ TABLET.ER. PO SCH ×2 (08:49→17:02)
[2017-02-25] MEDS: TAMSULOSIN 0.4 MG CAP.ER.24H. PO SCH (08:50)
[2017-02-25] MEDS: PANTOPRAZOLE 40 MG TABLET. PO SCH (08:50)
[2017-02-25] MEDS: QUEtiapine 25 MG TABLET. PO SCH ×3 (08:50→17:03)
[2017-02-25] MEDS: MEMANTINE 5 MG TABLET. PO SCH ×2 (08:50→20:15)
[2017-02-25] MEDS: CHOLESTYRAMINE/ASPARTAME 4 GM PACKET PO SCH ×2 (08:50→20:15)
[2017-02-25] MEDS: FERROUS SULFATE 325 MG TABLET. PO SCH (08:50)
[2017-02-25] MEDS: LACTOBACILLUS RHAMNOSUS GG 1 CAPSULE. PO SCH ×3 (08:50→20:21)
[2017-02-25] MEDS: LORazepam 0.5 MG TABLET PO SCH ×3 (08:52→20:19)
[2017-02-25] MEDS: DICLOFENAC SODIUM 1% TOPICAL GEL 100GM TUBE. TP SCH ×2 (09:06→20:57)
[2017-02-25 10:06] LABS: BASO % 0 % (0-3); EOS # 0.1 x10^3/uL (0.0-0.7); EOS % 1 % (0-3); HEMATOCRIT 31.4 % (36.0-47.0); HEMOGLOBIN 10.8 g/dL (12.0-15.5); LYMPH # 1.8 x10^3/uL (1.0-4.8); LYMPH % 33 % (24-48); MEAN CORPUSCULAR HEMOGLOBIN 35 pg (25-35); MEAN CORPUSCULAR HGB CONC 35 g/dL (31-37); MEAN CORPUSCULAR VOLUME 101 fL (79-100); MONO # 0.4 x10^3/uL (0.0-1.1); MONO % 7 % (0-9); NEUT # 3.2 x10^3uL (1.8-7.7); NEUT % 58 % (31-73); PLATELET COUNT 199 x10^3/uL (140-400); RED BLOOD COUNT 3.12 x10^6/uL (3.50-5.40); RED CELL DISTRIBUTION WIDTH 13.2 % (11.5-14.5); WHITE BLOOD COUNT 5.4 x10^3/uL (4.0-11.0)
[2017-02-25 10:18] LABS: ALBUMIN/GLOBULIN RATIO 0.9 (1.0-1.7); CALCIUM 8.7 mg/dL (8.5-10.1); CREATININE 1.5 mg/dL (0.6-1.0); GFR 33.3; MAGNESIUM 2.1 mg/dL (1.8-2.4); POTASSIUM 4.9 mmol/L (3.5-5.1); TOTAL BILIRUBIN 0.3 mg/dL (0.2-1.0); TOTAL PROTEIN 6.3 g/dL (6.4-8.2)
[2017-02-25] MEDS: DEMECLOCYCLINE HCL 150 MG TABLET PO SCH ×2 (11:57→20:59)
[2017-02-25] MEDS: traMADol 50 MG TABLET PO PRN (12:25)
[2017-02-25 16:20] VITALS: BP 122/71
--- NOTE | 2017-02-25 20:01 | PDOC ---
Exam Note: Fernando Note: Please also refer to the separate dictated note~for this date of service dictated separately.~Patient seen individually. Discussed the patient with Nursing staff reviewed the chart.~Reviewed interim history and current functioning. Reviewed vital signs,~Labs/ Radiology~and current medications noted below. Continue current treatment with the changes noted in the dictated addendum note Assessment: Vital Signs: Vital Signs Date Time Temp Pulse Resp B/P (MAP) Pulse Ox O2 Delivery O2 Flow Rate FiO2 02/25/17 16:20 98.0 82 20 122/71 (88) 100 02/21/17 16:58 Room Air I&O Intake and Output 02/25/17 07:00 Intake Total 960 ml Balance 960 ml Intake Oral 960 ml # Bowel Movements 1 Labs: Laboratory Tests Test 02/25/17 07:41 02/25/17 09:30 02/25/17 11:48 02/25/17 16:30 Glucose (Fingerstick) 69 mg/dL (70-99) L 99 mg/dL (70-99) 117 mg/dL (70-99) H White Blood Count 5.4 x10^3/uL (4.0-11.0) Red Blood Count 3.12 x10^6/uL (3.50-5.40) L Hemoglobin 10.8 g/dL (12.0-15.5) L Hematocrit 31.4 % (36.0-47.0) L Mean Corpuscular Volume 101 fL (79-100) H Mean Corpuscular Hemoglobin 35 pg (25-35) Mean Corpuscular Hemoglobin Concent 35 g/dL (31-37) Red Cell Distribution Width 13.2 % (11.5-14.5) Platelet Count 199 x10^3/uL (140-400) Neutrophils (%) (Auto) 58 % (31-73) Lymphocytes (%) (Auto) 33 % (24-48) Monocytes (%) (Auto) 7 % (0-9) Eosinophils (%) (Auto) 1 % (0-3) Basophils (%) (Auto) 0 % (0-3) Neutrophils # (Auto) 3.2 x10^3uL (1.8-7.7) Lymphocytes # (Auto) 1.8 x10^3/uL (1.0-4.8) Monocytes # (Auto) 0.4 x10^3/uL (0.0-1.1) Eosinophils # (Auto) 0.1 x10^3/uL (0.0-0.7) Basophils # (Auto) 0.0 x10^3/uL (0.0-0.2) Sodium Level 131 mmol/L (136-145) L Potassium Level 4.9 mmol/L (3.5-5.1) Chloride Level 100 mmol/L (98-107) Carbon Dioxide Level 23 mmol/L (21-32) Anion Gap 8 (6-14) Blood Urea Nitrogen 20 mg/dL (7-20) Creatinine 1.5 mg/dL (0.6-1.0) H Estimated GFR (Cockcroft-Gault) 33.3 BUN/Creatinine Ratio 13 (6-20) Glucose Level 112 mg/dL (70-99) H Calcium Level 8.7 mg/dL (8.5-10.1) Magnesium Level 2.1 mg/dL (1.8-2.4) Total Bilirubin 0.3 mg/dL (0.2-1.0) Aspartate Amino Transferase (AST) 25 U/L (15-37) Alanine Aminotransferase (ALT) 26 U/L (14-59) Alkaline Phosphatase 90 U/L (46-116) Total Protein 6.3 g/dL (6.4-8.2) L Albumin 3.0 g/dL (3.4-5.0) L Albumin/Globulin Ratio 0.9 (1.0-1.7) L Test 02/25/17 19:06 Glucose (Fingerstick) 142 mg/dL (70-99) H Current Medications: Meds: Current Medications Sodium Chloride 1,000 ml @ 1,000 mls/hr 1X ONCE IV Last administered on 02/20t 21:15; Start 02/20/17 at 21:15; Stop 02/20/17 at 22:14; Status DC Acetaminophen (Tylenol) 650 mg PRN Q6HRS PRN PO PAIN / TEMP; Start 02/20/17 at 22:15; Stop 02/21/17 at 07:13; Status DC Multi-Ingredient Ointment (Analgesic Eustace) 1 mario PRN QID PRN TP MUSCLE PAIN; Start 02/20/17 at 22:15 Al Hydroxide/Mg Hydroxide (Mylanta Plus Xs) 15 ml PRN AFTMEALHC PRN PO DYSPEPSIA Last administered on 02/21/17 16:40; Start 02/20/17 at 22:15 Magnesium Hydroxide (Milk Of Magnesia) 2,400 mg PRN QHS PRN PO CONSTIPATION; Start 02/20/17 at 22:15 Donepezil HCl (Aricept) 5 mg QHS PO Last administered on 02/24/17 20:19; Start 02/20/17 at 23:30 Lorazepam (Ativan) 0.5 mg PRN TID PRN PO ANXIETY / AGITATION; Start 02/20/17 at 22:30 Lorazepam (Ativan) 0.5 mg TID PO Last administered on 02/22/17 19:51; Start 02/20/17 at 23:30; Stop 02/22/17 at 23:29; Status DC Trazodone HCl (Desyrel) 50 mg QHS PO Last administered on 02/24/17 20:20; Start 02/20/17 at 23:30 Memantine (Namenda) 5 mg BID PO Last administered on 02/25/17 08:50; Start 02/20/17 at 23:30 Cholestyramine Resin (Questran Light) 4 gm BID PO Last administered on 08:50; Start 02/21/17 at 09:00 Diclofenac Sodium (Voltaren) 1 mario BID TP Last administered on 02/25/17 09:06 ; Start 02/21/17 at 09:00 Magnesium Oxide (Magnesium Oxide) 400 mg BID PO Last administered on 08:49; Start 02/21/17 at 09:00 Potassium Chloride (Klor-Con) 20 meq BIDWMEALS PO Last administered on 17:02; Start 02/21/17 at 08:00 Cefpodoxime Proxetil (Vantin) 100 mg BID PO Last administered on 02/21/17 20: 48; Start 02/21/17 at 10:15; Stop 02/21/17 at 21:01; Status DC Demeclocycline HCl (Declomycin) 300 mg BID PO Last administered on 02/25/17 11:57; Start 02/20/17 at 23:30 Lactobacillus Rhamnosus (Culturelle) 1 cap TID PO Last administered on 15:18; Start 02/20/17 at 23:30 Acetaminophen (Tylenol) 325 mg PRN Q4HRS PRN PO PAIN / TEMP Last administered on 02/22/17 06:27; Start 02/21/17 at 06:45; Stop 02/22/17 at 11:14; Status DC Vitamin D (Vitamin D3) 1,000 unit DAILY PO Last administered on 02/22/17 07: 37; Start 02/21/17 at 09:00; Stop 02/22/17 at 13:09; Status DC Ferrous Sulfate (Feosol) 325 mg DAILY PO Last administered on 02/25/17 08:50 ; Start 02/21/17 at 09:00 Lactase (Lactaid) 3,000 unit TIDAC PRN PO Lactose Intolerance Last administered on 02/25/17 08:49; Start 02/21/17 at 06:45 Linagliptin (Tradjenta) 5 mg DAILY PO Last administered on 02/25/17 08:49; Start 02/21/17 at 09:00 Lisinopril (Prinivil) 10 mg DAILY PO Last administered on 02/25/17 08:49; Start 02/21/17 at 09:00 Pantoprazole Sodium (Protonix) 20 mg DAILY PO Last administered on 02/22/17 07:37; Start 02/21/17 at 09:00; Stop 02/22/17 at 11:14; Status DC Tamsulosin HCl (Flomax) 0.4 mg DAILY PO Last administered on 02/25/17 08:50; Start 02/21/17 at 09:00 Insulin Detemir (Levemir) 20 units QHS SQ Last administered on 02/21/17 20:51 ; Start 02/21/17 at 21:00; Stop 02/22/17 at 13:09; Status DC Tramadol HCl (Ultram) 50 mg PRN Q8HRS PRN PO PAIN Last administered on 12:25; Start 02/22/17 at 07:30 Glucose (Insta-Glucose) 15 gm PRN Q15MIN PRN PO LOW BLOOD SUGAR Last administered on 02/22/17 08:06; Start 02/22/17 at 08:00 Acetaminophen (Tylenol) 650 mg Q8HRS PO Last administered on 02/25/17 15:06; Start 02/22/17 at 14:00 Pantoprazole Sodium (Protonix) 40 mg DAILYAC PO Last administered on 08:50; Start 02/23/17 at 07:30 Vitamin D (Vitamin D3) 2,000 unit DAILY PO Last administered on 02/25/17 08: 49; Start 02/23/17 at 09:00 Insulin Detemir (Levemir) 10 units QHS SQ Last administered on 02/22/17 19:54 ; Start 02/22/17 at 21:00; Stop 02/23/17 at 11:02; Status DC Loperamide HCl (Imodium) 2 mg PRN Q15MIN PRN PO DIARRHEA Last administered on 02/22/17 17:30; Start 02/22/17 at 16:30 Quetiapine Fumarate (SEROquel) 12.5 mg BID92 PO Last administered on 15:06; Start 02/23/17 at 09:00 Lorazepam (Ativan) 0.25 mg DAILY PO Last administered on 02/23/17 07:52; Start 02/23/17 at 09:00; Stop 02/23/17 at 09:01; Status DC Lorazepam (Ativan) 0.5 mg BID@1400,2100 PO Last administered on 02/23/17 19: 54; Start 02/23/17 at 14:00; Stop 02/23/17 at 21:01; Status DC Lorazepam (Ativan) 0.25 mg BID@0900,1400 PO Last administered on 02/24/17 13: 59; Start 02/24/17 at 09:00; Stop 02/24/17 at 14:01; Status DC Lorazepam (Ativan) 0.5 mg HS PO Last administered on 02/24/17 20:27; Start 02/24/17 at 21:00; Stop 02/24/17 at 21:01; Status DC Lorazepam (Ativan) 0.25 mg TID PO Last administered on 02/25/17 15:06; Start 02/25/17 at 09:00; Stop 11/20/17 at 21:01 Lorazepam (Ativan) 0.25 mg BID PO ; Start 02/26/17 at 09:00; Stop 02/26/17 at 21:01 Lorazepam (Ativan) 0.25 mg DAILY PO ; Start 02/27/17 at 09:00; Stop 02/27/17 at 09:01 Insulin Detemir (Levemir) 5 units QHS SQ Last administered on 02/24/17 20:28 ; Start 02/23/17 at 21:00 Quetiapine Fumarate (SEROquel) 12.5 mg DAILYWSUP PO Last administered on 17:03; Start 02/24/17 at 17:00 Duloxetine HCl (Cymbalta) 30 mg DAILY PO ; Start 02/26/17 at 09:00; Stop 03/01 at 08:59 Duloxetine HCl (Cymbalta) 60 mg DAILY PO ; Start 03/01/17 at 09:00 Active Scripts Active Reported Zofran (Ondansetron Hcl) 4 Mg Tablet 4 Mg PO TIDAC Voltaren (Diclofenac Sodium) 100 Gm Gel..gram. 1 Mario TP BID Trazodone Hcl 50 Mg Tablet 50 Mg PO QHS Tradjenta (Linagliptin) 5 Mg Tablet 5 Mg PO DAILY Tamsulosin Hcl 0.4 Mg Cap.er.24h 0.4 Mg PO DAILY Questran Packet (Cholestyramine (With Sugar)) 4 Gm Powd.pack 1 Packet PO BID Protonix (Pantoprazole Sodium) 20 Mg Tablet.dr 20 Mg PO DAILY Klor-Con M20 (Potassium Chloride) 20 Meq Tab.er.prt 20 Meq PO BID Namenda Xr (Memantine Hcl) 14 Mg Cap.spr.24 14 Mg PO QHS Alum-Mag Hydroxide-Simeth Liq (Mag Hydrox/Al Hydrox/Simeth) 360 Ml Oral.susp 30 Ml PO PRN Q6HRS PRN Magnesium Oxide 400 Mg Tablet 400 Mg PO BID Loperamide (Loperamide Hcl) 2 Mg Tablet 2 Tab PO PRN PRN Loperamide (Loperamide Hcl) 2 Mg Tablet 2 Mg PO PRN PRN Lisinopril 10 Mg Tablet 10 Mg PO DAILY Lantus Solostar (Insulin Glargine,Hum.rec.anlog) 100 Unit/1 Ml Insuln.pen 20 Unit SQ DAILY Lactaid (Lactase) 3,000 Unit Tablet 3,000 Unit PO PRN PRN Ferrous Sulfate 325 Mg Tablet 325 Mg PO DAILY Demeclocycline Hcl 300 Mg Tablet 300 Mg PO BID Vitamin D3 (Cholecalciferol (Vitamin D3)) 1,000 Unit Tablet 1,000 Unit PO DAILY Cefdinir 300 Mg Capsule 300 Mg PO BID Ativan (Lorazepam) 0.5 Mg Tablet 0.5 Mg PO TID Ativan (Lorazepam) 0.5 Mg Tablet 0.5 Mg PO PRN TID PRN Aricept (Donepezil Hcl) 5 Mg Tablet 5 Mg PO QHS Analpram Hc 2.5%-1% Lotion (Hydrocortisone/Pramoxine) 59 Ml Lotion 1 Mario [place] PRN TID PRN Acidophilus (Lactobacillus Acidophilus) 1 Each Tablet 1 Cap PO TID Tylenol (Acetaminophen) 325 Mg Tablet 325 Mg PO PRN Q4HRS PRN I have reviewed the current psychotropics carefully including drug interactions. Risk benefit ratio favors no change other than as noted in my dictated progress note. Diagnosis: Problems: (1) Hyponatremia (2) Dementia (3) Depression (4) Agitation KAMRON MENDEZ MD Feb 25, 2017 20:01
[2017-02-25] MEDS: DONEPEZIL HCL 5 MG TABLET. PO SCH (20:14)
[2017-02-25] MEDS: traZODone 50 MG TABLET. PO SCH (20:15)
[2017-02-25] MEDS: INSULIN DETEMIR 300 UNITS/3 ML INSULN.PEN. SQ SCH (20:24)
--- NOTE | 2017-02-26 04:24 | PN ---
DATE: 02/24/2017 This is a late entry for 02/24/2017 and covers the elements not covered in my initial note. SUBJECTIVE: I met with the patient in her room. Per nursing report, she has been crying, labile in her mood, extremely somatically preoccupied, as I met with her, she was fixated on her abdominal and hip pain, somewhat sedated. REVIEW OF SYSTEMS: No CV, , pulmonary, eye system symptoms on review other than noted above. MENTAL STATUS EXAM: Oriented to herself. Insight, judgment, recent and remote memory, attention, concentration, fund of knowledge poor, consistent with her diagnosis mentioned in my initial note. PLAN: No change from a psychiatric standpoint from my initial note. Adjust further as clinically indicated. MAN Arabella MENDEZ MD DR: MERLIN/sabrina JOB#: [id number] / [id number]
--- NOTE | 2017-02-26 04:31 | PN ---
DATE: 02/25/2017 This note covers the elements not covered in my initial note of 02/25/2017. SUBJECTIVE: I met with the patient the morning of 02/25/2017. The patient has been somatically preoccupied with vague abdominal pain, hip pain, vague somatic symptoms, yelling out frequently, received bedtime tramadol, been deferred pain management to Dr. Kim, but per nursing report most of the pain is functional. She remains depressed. REVIEW OF SYSTEMS: No CV, , eye system symptoms on review. MENTAL STATUS EXAM: Oriented to herself. Insight, judgment, recent and remote memory, attention, concentration, fund of knowledge poor, consistent with her diagnosis mentioned in my initial note. PLAN: Given the patient's depressive anxiety symptoms and preoccupation with pain, we will go ahead and start Cymbalta 30 mg a day for 3 days then increase it to 50 mg a day. Rest of the psychotropics unchanged from initial note. Adjust as clinically indicated. MAN Arabella MENDEZ MD DR: MERLIN/sabrina JOB#: [id number] / [id number]
[2017-02-26] MEDS: ACETAMINOPHEN 325 MG TABLET PO SCH ×3 (05:25→20:16)
[2017-02-26 06:11] VITALS: BP 109/61
[2017-02-26] MEDS: POTASSIUM CHLORIDE 20 MEQ TABLET.ER. PO SCH ×2 (07:41→17:25)
[2017-02-26] MEDS: FERROUS SULFATE 325 MG TABLET. PO SCH (07:41)
[2017-02-26] MEDS: LINAGLIPTIN 5 MG TABLET PO SCH (07:41)
[2017-02-26] MEDS: LACTOBACILLUS RHAMNOSUS GG 1 CAPSULE. PO SCH ×3 (07:41→20:19)
[2017-02-26] MEDS: QUEtiapine 25 MG TABLET. PO SCH ×3 (07:42→17:25)
[2017-02-26] MEDS: PANTOPRAZOLE 40 MG TABLET. PO SCH (07:42)
[2017-02-26] MEDS: CHOLESTYRAMINE/ASPARTAME 4 GM PACKET PO SCH ×2 (07:42→20:15)
[2017-02-26] MEDS: LACTASE 3,000 UNIT TABLET PO PRN (07:42)
[2017-02-26] MEDS: TAMSULOSIN 0.4 MG CAP.ER.24H. PO SCH (07:42)
[2017-02-26] MEDS: CHOLECALCIFEROL (VITAMIN D3) 1,000 UNIT TABLET PO SCH (07:43)
[2017-02-26] MEDS: DEMECLOCYCLINE HCL 150 MG TABLET PO SCH ×2 (07:43→20:19)
[2017-02-26] MEDS: LISINOPRIL 10 MG TABLET PO SCH (07:44)
[2017-02-26] MEDS: MEMANTINE 5 MG TABLET. PO SCH ×2 (07:44→20:15)
[2017-02-26] MEDS: MAGNESIUM OXIDE 400 MG TABLET PO SCH ×2 (07:44→20:15)
[2017-02-26] MEDS: LORazepam 0.5 MG TABLET PO SCH ×2 (07:46→20:19)
[2017-02-26] MEDS: DULoxetine HCL 30 MG CAPSULE.DR PO SCH (07:46)
[2017-02-26] MEDS: DICLOFENAC SODIUM 1% TOPICAL GEL 100GM TUBE. TP SCH ×2 (07:47→20:16)
[2017-02-26] MEDS: traMADol 50 MG TABLET PO PRN (12:03)
[2017-02-26 16:17] VITALS: BP 151/98
[2017-02-26] MEDS: DONEPEZIL HCL 5 MG TABLET. PO SCH (20:15)
[2017-02-26] MEDS: traZODone 50 MG TABLET. PO SCH (20:15)
[2017-02-26] MEDS: INSULIN DETEMIR 300 UNITS/3 ML INSULN.PEN. SQ SCH (20:16)
[2017-02-26 22:45] LABS: FECAL OB PT NEGATIVE (NEG)
[2017-02-27] MEDS: traMADol 50 MG TABLET PO PRN (01:23)
[2017-02-27] MEDS: ACETAMINOPHEN 325 MG TABLET PO SCH ×3 (05:20→20:47)
[2017-02-27 06:05] VITALS: BP 113/79
[2017-02-27 06:42] LABS: BASO % 1 % (0-3); EOS # 0.1 x10^3/uL (0.0-0.7); EOS % 1 % (0-3); HEMOGLOBIN 10.4 g/dL (12.0-15.5); LYMPH # 1.8 x10^3/uL (1.0-4.8); LYMPH % 28 % (24-48); MEAN CORPUSCULAR HEMOGLOBIN 35 pg (25-35); MEAN CORPUSCULAR HGB CONC 35 g/dL (31-37); MEAN CORPUSCULAR VOLUME 100 fL (79-100); MONO # 0.4 x10^3/uL (0.0-1.1); MONO % 6 % (0-9); NEUT # 4.1 x10^3uL (1.8-7.7); NEUT % 64 % (31-73); PLATELET COUNT 180 x10^3/uL (140-400); RED BLOOD COUNT 2.99 x10^6/uL (3.50-5.40); RED CELL DISTRIBUTION WIDTH 13.2 % (11.5-14.5); WHITE BLOOD COUNT 6.3 x10^3/uL (4.0-11.0)
[2017-02-27] MEDS: CHOLESTYRAMINE/ASPARTAME 4 GM PACKET PO SCH ×2 (08:26→20:45)
[2017-02-27] MEDS: LACTOBACILLUS RHAMNOSUS GG 1 CAPSULE. PO SCH ×3 (08:27→20:45)
[2017-02-27] MEDS: DEMECLOCYCLINE HCL 150 MG TABLET PO SCH ×2 (08:27→20:47)
[2017-02-27] MEDS: CHOLECALCIFEROL (VITAMIN D3) 1,000 UNIT TABLET PO SCH (08:28)
[2017-02-27] MEDS: PANTOPRAZOLE 40 MG TABLET. PO SCH (08:28)
[2017-02-27] MEDS: QUEtiapine 25 MG TABLET. PO SCH ×3 (08:28→17:29)
[2017-02-27] MEDS: MEMANTINE 5 MG TABLET. PO SCH ×2 (08:28→20:45)
[2017-02-27] MEDS: LACTASE 3,000 UNIT TABLET PO PRN (08:28)
[2017-02-27] MEDS: DULoxetine HCL 30 MG CAPSULE.DR PO SCH (08:28)
[2017-02-27] MEDS: FERROUS SULFATE 325 MG TABLET. PO SCH (08:29)
[2017-02-27] MEDS: POTASSIUM CHLORIDE 20 MEQ TABLET.ER. PO SCH ×2 (08:29→17:28)
[2017-02-27] MEDS: LINAGLIPTIN 5 MG TABLET PO SCH (08:29)
[2017-02-27] MEDS: TAMSULOSIN 0.4 MG CAP.ER.24H. PO SCH (08:29)
[2017-02-27] MEDS: MAGNESIUM OXIDE 400 MG TABLET PO SCH ×2 (08:29→20:45)
[2017-02-27] MEDS: LISINOPRIL 10 MG TABLET PO SCH (08:30)
[2017-02-27] MEDS: DICLOFENAC SODIUM 1% TOPICAL GEL 100GM TUBE. TP SCH ×2 (08:33→20:45)
[2017-02-27] MEDS ORDERED: LORazepam 0.5 MG TABLET PO SCH (09:00)
[2017-02-27 16:09] VITALS: BP 137/69
[2017-02-27 16:54] LABS: BILIRUBIN,URINE NEG (NEG); CLARITY,URINE CLOUDY; COLOR,URINE YELLOW; GLUCOSE,URINE NEG (NEG); NITRITE,URINE NEG (NEG); UROBILINOGEN,URINE 0.2 mg/dL (0.2 mg/dL)
[2017-02-27 16:55] LABS: BACTERIA,URINE MOD /HPF (0-FEW); SQUAMOUS EPITHELIAL CELL,UR MOD /LPF
[2017-02-27] MEDS: DONEPEZIL HCL 5 MG TABLET. PO SCH (20:45)
[2017-02-27] MEDS: traZODone 50 MG TABLET. PO SCH (20:45)
[2017-02-27] MEDS: INSULIN DETEMIR 300 UNITS/3 ML INSULN.PEN. SQ SCH (20:46)
[2017-02-28] MEDS: ACETAMINOPHEN 325 MG TABLET PO SCH ×3 (05:32→20:31)
[2017-02-28 06:00] VITALS: BP 138/67
[2017-02-28] MEDS: LINAGLIPTIN 5 MG TABLET PO SCH (08:14)
[2017-02-28] MEDS: CHOLESTYRAMINE/ASPARTAME 4 GM PACKET PO SCH ×2 (08:14→20:31)
[2017-02-28] MEDS: CHOLECALCIFEROL (VITAMIN D3) 1,000 UNIT TABLET PO SCH (08:14)
[2017-02-28] MEDS: PANTOPRAZOLE 40 MG TABLET. PO SCH (08:15)
[2017-02-28] MEDS: LACTASE 3,000 UNIT TABLET PO PRN (08:15)
[2017-02-28] MEDS: LISINOPRIL 10 MG TABLET PO SCH (08:15)
[2017-02-28] MEDS: DULoxetine HCL 30 MG CAPSULE.DR PO SCH (08:15)
[2017-02-28] MEDS: LACTOBACILLUS RHAMNOSUS GG 1 CAPSULE. PO SCH ×3 (08:15→20:31)
[2017-02-28] MEDS: TAMSULOSIN 0.4 MG CAP.ER.24H. PO SCH (08:15)
[2017-02-28] MEDS: MAGNESIUM OXIDE 400 MG TABLET PO SCH ×2 (08:15→20:31)
[2017-02-28] MEDS: FERROUS SULFATE 325 MG TABLET. PO SCH (08:15)
[2017-02-28] MEDS: POTASSIUM CHLORIDE 20 MEQ TABLET.ER. PO SCH ×2 (08:15→18:02)
[2017-02-28] MEDS: QUEtiapine 25 MG TABLET. PO SCH ×3 (08:16→18:03)
[2017-02-28] MEDS: MEMANTINE 5 MG TABLET. PO SCH ×2 (08:16→20:31)
[2017-02-28] MEDS: DICLOFENAC SODIUM 1% TOPICAL GEL 100GM TUBE. TP SCH ×2 (08:18→20:37)
[2017-02-28] MEDS: DEMECLOCYCLINE HCL 150 MG TABLET PO SCH ×2 (08:18→20:31)
[2017-02-28] MEDS: DIVALPROEX SODIUM 125 MG TABLET.DR. PO SCH ×2 (08:20→13:43)
--- NOTE | 2017-02-28 09:27 | PN ---
DATE: 02/27/2017 PSYCHIATRIC EVALUATION SUBJECTIVE: The patient was seen today, met with the staff, chart reviewed. I am covering for Dr. Ernst. OBSERVATION: VITAL SIGNS: Temperature 98.2, blood pressure 113/79, pulse 82, respirations 18, O2 sat 97%. GENERAL: Slept about 8 hours last night. The patient's appetite is fair. The patient is not presenting with any physical complaints except complaining of left hip pain. The patient also complains of burning to the rectum. The patient is constantly yelling, multiple somatic complaints, not motivated, stays in bed most of the time. MEDICATIONS: The patient's current medications include Cymbalta 90 mg daily, Seroquel 12.5 mg b.i.d., Namenda 5 mg b.i.d., Aricept 5 mg at night, trazodone 50 mg at night, lorazepam 0.5 mg t.i.d. p.r.n. LABORATORY DATA: The patient's labs reviewed, no significant change. ASSESSMENT: Dementia, most likely Alzheimer's with depression and behavior problems. PLAN: Continue with the treatment. Start on Depakote Sprinkles 125 mg b.i.d. p.o. JOSE GAYTAN MD DR: NOÉ/sabrina JOB#: [id number] / [id number]
[2017-02-28 16:13] VITALS: BP 137/77
--- NOTE | 2017-02-28 17:29 | PN ---
DATE: 02/28/2017 SUBJECTIVE: The patient was seen today, met with the staff, chart reviewed. The patient is still complaining of chronic hip pain. The patient continues to be irritable and beck, tends to isolate herself. OBSERVATION: VITAL SIGNS: Temperature 98.4, blood pressure 138/62, pulse 82, respirations 16, O2 sat 97%. The patient slept about 10 hours last night. MEDICATIONS: The patient's current medications include Cymbalta 60 mg daily, Depakote 125 mg b.i.d. She is also on Cymbalta 30 mg daily, Seroquel ____ 12.5 mg twice a day. She is also on Namenda 5 mg b.i.d., trazodone 50 mg at night and Aricept 5 mg at night, lorazepam 0.5 mg t.i.d. p.r.n. The patient is not having any side effects. The patient's lab reviewed. The patient's RBC count was 2.99, hemoglobin 10.4. The patient's glucose fluctuates. ASSESSMENT: Dementia, most likely Alzheimer's with depression and behavior problems. Plan is to continue with the treatment. JOSE GAYTAN MD DR: NOÉ/sabrina JOB#: [id number] / [id number]
[2017-02-28] MEDS: MAG HYDROX/AL HYDROX/SIMETH 30 ML ORAL.SUSP PO PRN (18:03)
[2017-02-28] MEDS: traZODone 50 MG TABLET. PO SCH (20:31)
[2017-02-28] MEDS: DONEPEZIL HCL 5 MG TABLET. PO SCH (20:31)
[2017-02-28] MEDS: INSULIN DETEMIR 300 UNITS/3 ML INSULN.PEN. SQ SCH (20:34)
[2017-02-28] MEDS: traMADol 50 MG TABLET PO PRN (21:41)
[2017-03-01] MEDS: ACETAMINOPHEN 325 MG TABLET PO SCH ×3 (05:02→19:37)
[2017-03-01 05:54] VITALS: BP 138/17
[2017-03-01] MEDS: POTASSIUM CHLORIDE 20 MEQ TABLET.ER. PO SCH ×2 (07:53→16:32)
[2017-03-01] MEDS: LINAGLIPTIN 5 MG TABLET PO SCH (07:53)
[2017-03-01] MEDS: LACTOBACILLUS RHAMNOSUS GG 1 CAPSULE. PO SCH ×3 (07:53→19:33)
[2017-03-01] MEDS: LACTASE 3,000 UNIT TABLET PO PRN (07:53)
[2017-03-01] MEDS: DIVALPROEX SODIUM 125 MG TABLET.DR. PO SCH ×2 (07:54→14:11)
[2017-03-01] MEDS: PANTOPRAZOLE 40 MG TABLET. PO SCH (07:54)
[2017-03-01] MEDS: CHOLECALCIFEROL (VITAMIN D3) 1,000 UNIT TABLET PO SCH (07:54)
[2017-03-01] MEDS: MEMANTINE 5 MG TABLET. PO SCH ×2 (07:55→19:33)
[2017-03-01] MEDS: LISINOPRIL 10 MG TABLET PO SCH (07:55)
[2017-03-01] MEDS: FERROUS SULFATE 325 MG TABLET. PO SCH (07:55)
[2017-03-01] MEDS: TAMSULOSIN 0.4 MG CAP.ER.24H. PO SCH (07:55)
[2017-03-01] MEDS: MAGNESIUM OXIDE 400 MG TABLET PO SCH ×2 (07:56→19:33)
[2017-03-01] MEDS: QUEtiapine 25 MG TABLET. PO SCH ×3 (07:56→16:32)
[2017-03-01] MEDS: CHOLESTYRAMINE/ASPARTAME 4 GM PACKET PO SCH ×2 (07:56→19:33)
[2017-03-01] MEDS: DULoxetine HCL 60 MG CAPSULE.DR PO SCH (08:00)
[2017-03-01] MEDS: DEMECLOCYCLINE HCL 150 MG TABLET PO SCH ×2 (08:01→19:34)
[2017-03-01] MEDS: DICLOFENAC SODIUM 1% TOPICAL GEL 100GM TUBE. TP SCH ×2 (08:02→09:00)
[2017-03-01 15:55] VITALS: BP 134/76
[2017-03-01] MEDS: DONEPEZIL HCL 5 MG TABLET. PO SCH (19:33)
[2017-03-01] MEDS: traZODone 50 MG TABLET. PO SCH (19:33)
[2017-03-01] MEDS: INSULIN DETEMIR 300 UNITS/3 ML INSULN.PEN. SQ SCH (19:36)
--- NOTE | 2017-03-01 19:45 | PN ---
DATE: 03/01/2017 SUBJECTIVE: The patient was seen today, met with the staff, chart reviewed. The patient continues to isolate herself, irritable, beck. OBSERVATION: Temperature 97.6, pulse 138/71, pulse 79, respirations 16, O2 sat 100%. Slept about 9 hours last night. The patient's appetite is fair. CURRENT MEDICATIONS: Include Cymbalta 60 mg daily, Depakote 125 mg b.i.d., Seroquel 12.5 mg t.i.d., Aricept 5 mg daily, trazodone 50 mg at night, Namenda 5 mg b.i.d. The patient is not having any side effects to the medications. ASSESSMENT: Dementia, most likely Alzheimer's with depression and behavioral problems. PLAN: Continue with the treatment. JOSE GAYTAN MD DR: NOÉ/sabrina JOB#: [id number] / [id number]
[2017-03-02 05:32] VITALS: BP 166/77
[2017-03-02] MEDS: ACETAMINOPHEN 325 MG TABLET PO SCH ×3 (06:16→20:30)
[2017-03-02] MEDS: POTASSIUM CHLORIDE 20 MEQ TABLET.ER. PO SCH ×2 (07:46→17:00)
[2017-03-02] MEDS: CHOLECALCIFEROL (VITAMIN D3) 1,000 UNIT TABLET PO SCH (07:46)
[2017-03-02] MEDS: CHOLESTYRAMINE/ASPARTAME 4 GM PACKET PO SCH ×2 (07:46→20:31)
[2017-03-02] MEDS: DULoxetine HCL 60 MG CAPSULE.DR PO SCH (07:46)
[2017-03-02] MEDS: TAMSULOSIN 0.4 MG CAP.ER.24H. PO SCH (07:47)
[2017-03-02] MEDS: LISINOPRIL 10 MG TABLET PO SCH (07:47)
[2017-03-02] MEDS: MAGNESIUM OXIDE 400 MG TABLET PO SCH ×2 (07:47→20:31)
[2017-03-02] MEDS: LACTOBACILLUS RHAMNOSUS GG 1 CAPSULE. PO SCH ×3 (07:47→20:31)
[2017-03-02] MEDS: FERROUS SULFATE 325 MG TABLET. PO SCH (07:47)
[2017-03-02] MEDS: DIVALPROEX SODIUM 125 MG TABLET.DR. PO SCH ×2 (07:47→14:00)
[2017-03-02] MEDS: PANTOPRAZOLE 40 MG TABLET. PO SCH (07:47)
[2017-03-02] MEDS: QUEtiapine 25 MG TABLET. PO SCH ×3 (07:47→18:08)
[2017-03-02] MEDS: DEMECLOCYCLINE HCL 150 MG TABLET PO SCH ×2 (07:48→20:30)
[2017-03-02] MEDS: LINAGLIPTIN 5 MG TABLET PO SCH (07:48)
[2017-03-02] MEDS: MEMANTINE 5 MG TABLET. PO SCH ×2 (07:49→20:31)
[2017-03-02] MEDS: LIDOCAINE (700MG/PATCH) PATCH. TD SCH (14:00)
[2017-03-02 16:35] VITALS: BP 133/77
[2017-03-02 16:36] VITALS: BP 114/63
[2017-03-02 16:44] VITALS: BP 133/77
[2017-03-02] MEDS: MAG HYDROX/AL HYDROX/SIMETH 30 ML ORAL.SUSP PO PRN (18:09)
[2017-03-02] MEDS: DONEPEZIL HCL 5 MG TABLET. PO SCH (20:30)
[2017-03-02] MEDS: AMOXICILLIN/K CLAV 500/125MG TABLET. PO SCH (20:34)
[2017-03-02] MEDS: traZODone 50 MG TABLET. PO SCH (20:34)
[2017-03-02] MEDS: INSULIN DETEMIR 300 UNITS/3 ML INSULN.PEN. SQ SCH (20:35)
--- NOTE | 2017-03-02 21:01 | PDOC ---
Exam Note: Fernando Note: Please also refer to the separate dictated note~for this date of service dictated separately.~Patient seen individually. Discussed the patient with Nursing staff reviewed the chart.~Reviewed interim history and current functioning. Reviewed vital signs,~Labs/ Radiology~and current medications noted below. Continue current treatment with the changes noted in the dictated addendum note Assessment: Vital Signs: Vital Signs Date Time Temp Pulse Resp B/P (MAP) Pulse Ox O2 Delivery O2 Flow Rate FiO2 03/02/17 16:44 98.7 75 20 133/77 (95) 98 03/02/17 05:32 Room Air I&O Intake and Output 03/02/17 07:00 Intake Total 600 ml Balance 600 ml Intake Oral 600 ml Labs: Laboratory Tests Test 03/02/17 07:54 03/02/17 11:45 03/02/17 16:44 03/02/17 18:57 Glucose (Fingerstick) 97 mg/dL (70-99) 112 mg/dL (70-99) H 103 mg/dL (70-99) H 141 mg/dL (70-99) H Current Medications: Meds: Current Medications Sodium Chloride 1,000 ml @ 1,000 mls/hr 1X ONCE IV Last administered on 02/20 21:15; Start 02/20/17 at 21:15; Stop 02/20/17 at 22:14; Status DC Acetaminophen (Tylenol) 650 mg PRN Q6HRS PRN PO PAIN / TEMP; Start 02/20/17 at 22:15; Stop 02/21/17 at 07:13; Status DC Multi-Ingredient Ointment (Analgesic [place]) 1 mario PRN QID PRN TP MUSCLE PAIN; Start 02/20/17 at 22:15 Al Hydroxide/Mg Hydroxide (Mylanta Plus Xs) 15 ml PRN AFTMEALHC PRN PO DYSPEPSIA Last administered on 03/02/17 18:09; Start 02/20/17 at 22:15 Magnesium Hydroxide (Milk Of Magnesia) 2,400 mg PRN QHS PRN PO CONSTIPATION; Start 02/20/17 at 22:15 Donepezil HCl (Aricept) 5 mg QHS PO Last administered on 03/02/17 20:30; Start 02/20/17 at 23:30 Lorazepam (Ativan) 0.5 mg PRN TID PRN PO ANXIETY / AGITATION; Start 02/20/17 at 22:30 Lorazepam (Ativan) 0.5 mg TID PO Last administered on 02/22/17 19:51; Start 02/20/17 at 23:30; Stop 02/22/17 at 23:29; Status DC Trazodone HCl (Desyrel) 50 mg QHS PO Last administered on 03/02/17 20:34; Start 02/20/17 at 23:30 Memantine (Namenda) 5 mg BID PO Last administered on 03/02/17 20:31; Start 02/20/17 at 23:30 Cholestyramine Resin (Questran Light) 4 gm BID PO Last administered on 20:31; Start 02/21/17 at 09:00 Diclofenac Sodium (Voltaren) 1 mario BID TP Last administered on 02/28/17 20:37 ; Start 02/21/17 at 09:00; Stop 03/01/17 at 14:35; Status DC Magnesium Oxide (Magnesium Oxide) 400 mg BID PO Last administered on 20:31; Start 02/21/17 at 09:00 Potassium Chloride (Klor-Con) 20 meq BIDWMEALS PO Last administered on 17:00; Start 02/21/17 at 08:00 Cefpodoxime Proxetil (Vantin) 100 mg BID PO Last administered on 02/21/17 20: 48; Start 02/21/17 at 10:15; Stop 02/21/17 at 21:01; Status DC Demeclocycline HCl (Declomycin) 300 mg BID PO Last administered on 03/02/17 20:30; Start 02/20/17 at 23:30 Lactobacillus Rhamnosus (Culturelle) 1 cap TID PO Last administered on 20:31; Start 02/20/17 at 23:30 Acetaminophen (Tylenol) 325 mg PRN Q4HRS PRN PO PAIN / TEMP Last administered on 02/22/17 06:27; Start 02/21/17 at 06:45; Stop 02/22/17 at 11:14; Status DC Vitamin D (Vitamin D3) 1,000 unit DAILY PO Last administered on 02/22/17 07: 37; Start 02/21/17 at 09:00; Stop 02/22/17 at 13:09; Status DC Ferrous Sulfate (Feosol) 325 mg DAILY PO Last administered on 03/02/17 07:47 ; Start 02/21/17 at 09:00 Lactase (Lactaid) 3,000 unit TIDAC PRN PO Lactose Intolerance Last administered on 03/01/17 07:53; Start 02/21/17 at 06:45 Linagliptin (Tradjenta) 5 mg DAILY PO Last administered on 03/02/17 07:48; Start 02/21/17 at 09:00 Lisinopril (Prinivil) 10 mg DAILY PO Last administered on 03/02/17 07:47; Start 02/21/17 at 09:00 Pantoprazole Sodium (Protonix) 20 mg DAILY PO Last administered on 02/22/17 07:37; Start 02/21/17 at 09:00; Stop 02/22/17 at 11:14; Status DC Tamsulosin HCl (Flomax) 0.4 mg DAILY PO Last administered on 03/02/17 07:47; Start 02/21/17 at 09:00 Insulin Detemir (Levemir) 20 units QHS SQ Last administered on 02/21/17 20:51 ; Start 02/21/17 at 21:00; Stop 02/22/17 at 13:09; Status DC Tramadol HCl (Ultram) 50 mg PRN Q8HRS PRN PO PAIN Last administered on 21:41; Start 02/22/17 at 07:30 Glucose (Insta-Glucose) 15 gm PRN Q15MIN PRN PO LOW BLOOD SUGAR Last administered on 02/22/17 08:06; Start 02/22/17 at 08:00 Acetaminophen (Tylenol) 650 mg Q8HRS PO Last administered on 03/02/17 20:30; Start 02/22/17 at 14:00 Pantoprazole Sodium (Protonix) 40 mg DAILYAC PO Last administered on 07:47; Start 02/23/17 at 07:30 Vitamin D (Vitamin D3) 2,000 unit DAILY PO Last administered on 03/02/17 07: 46; Start 02/23/17 at 09:00 Insulin Detemir (Levemir) 10 units QHS SQ Last administered on 02/22/17 19:54 ; Start 02/22/17 at 21:00; Stop 02/23/17 at 11:02; Status DC Loperamide HCl (Imodium) 2 mg PRN Q15MIN PRN PO DIARRHEA Last administered on 02/22/17 17:30; Start 02/22/17 at 16:30 Quetiapine Fumarate (SEROquel) 12.5 mg BID92 PO Last administered on 14:01; Start 02/23/17 at 09:00 Lorazepam (Ativan) 0.25 mg DAILY PO Last administered on 02/23/17 07:52; Start 02/23/17 at 09:00; Stop 02/23/17 at 09:01; Status DC Lorazepam (Ativan) 0.5 mg BID@1400,2100 PO Last administered on 02/23/17 19: 54; Start 02/23/17 at 14:00; Stop 02/23/17 at 21:01; Status DC Lorazepam (Ativan) 0.25 mg BID@0900,1400 PO Last administered on 02/24/17 13: 59; Start 02/24/17 at 09:00; Stop 02/24/17 at 14:01; Status DC Lorazepam (Ativan) 0.5 mg HS PO Last administered on 02/24/17 20:27; Start 02/24/17 at 21:00; Stop 02/24/17 at 21:01; Status DC Lorazepam (Ativan) 0.25 mg TID PO Last administered on 02/25/17 20:19; Start 02/25/17 at 09:00; Stop 02/25/17 at 21:01; Status DC Lorazepam (Ativan) 0.25 mg BID PO Last administered on 02/26/17 20:19; Start 02/26/17 at 09:00; Stop 02/26/17 at 21:01; Status DC Lorazepam (Ativan) 0.25 mg DAILY PO Last administered on 02/27/17 08:32; Start 02/27/17 at 09:00; Stop 02/27/17 at 09:01; Status DC Insulin Detemir (Levemir) 5 units QHS SQ Last administered on 03/02/17 20:35 ; Start 02/23/17 at 21:00 Quetiapine Fumarate (SEROquel) 12.5 mg DAILYWSUP PO Last administered on 18:08; Start 02/24/17 at 17:00 Duloxetine HCl (Cymbalta) 30 mg DAILY PO Last administered on 02/28/17 08:15 ; Start 02/26/17 at 09:00; Stop 03/01/17 at 08:59; Status DC Duloxetine HCl (Cymbalta) 60 mg DAILY PO Last administered on 03/02/17 07:46 ; Start 03/01/17 at 09:00 Divalproex Sodium (Depakote) 125 mg BID92 PO Last administered on 03/02/17 14 :00; Start 02/28/17 at 09:00 Lidocaine (Lidoderm) 1 patch DAILY TD Last administered on 03/02/17 14:00; Start 03/02/17 at 12:30 Amoxicillin/ Clavulanate Potassium (Augmentin 500/ 125mg) 1 tab BID PO Last administered on 03/02/17 20:34; Start 03/02/17 at 21:00 Active Scripts Active Reported Zofran (Ondansetron Hcl) 4 Mg Tablet 4 Mg PO TIDAC Voltaren (Diclofenac Sodium) 100 Gm Gel..gram. 1 Mario TP BID Trazodone Hcl 50 Mg Tablet 50 Mg PO QHS Tradjenta (Linagliptin) 5 Mg Tablet 5 Mg PO DAILY Tamsulosin Hcl 0.4 Mg Cap.er.24h 0.4 Mg PO DAILY Questran Packet (Cholestyramine (With Sugar)) 4 Gm Powd.pack 1 Packet PO BID Protonix (Pantoprazole Sodium) 20 Mg Tablet.dr 20 Mg PO DAILY Klor-Con M20 (Potassium Chloride) 20 Meq Tab.er.prt 20 Meq PO BID Namenda Xr (Memantine Hcl) 14 Mg Cap.spr.24 14 Mg PO QHS Alum-Mag Hydroxide-Simeth Liq (Mag Hydrox/Al Hydrox/Simeth) 360 Ml Oral.susp 30 Ml PO PRN Q6HRS PRN Magnesium Oxide 400 Mg Tablet 400 Mg PO BID Loperamide (Loperamide Hcl) 2 Mg Tablet 2 Tab PO PRN PRN Loperamide (Loperamide Hcl) 2 Mg Tablet 2 Mg PO PRN PRN Lisinopril 10 Mg Tablet 10 Mg PO DAILY Lantus Solostar (Insulin Glargine,Hum.rec.anlog) 100 Unit/1 Ml Insuln.pen 20 Unit SQ DAILY Lactaid (Lactase) 3,000 Unit Tablet 3,000 Unit PO PRN PRN Ferrous Sulfate 325 Mg Tablet 325 Mg PO DAILY Demeclocycline Hcl 300 Mg Tablet 300 Mg PO BID Vitamin D3 (Cholecalciferol (Vitamin D3)) 1,000 Unit Tablet 1,000 Unit PO DAILY Cefdinir 300 Mg Capsule 300 Mg PO BID Ativan (Lorazepam) 0.5 Mg Tablet 0.5 Mg PO TID Ativan (Lorazepam) 0.5 Mg Tablet 0.5 Mg PO PRN TID PRN Aricept (Donepezil Hcl) 5 Mg Tablet 5 Mg PO QHS Analpram Hc 2.5%-1% Lotion (Hydrocortisone/Pramoxine) 59 Ml Lotion 1 Mario DE PRN TID PRN Acidophilus (Lactobacillus Acidophilus) 1 Each Tablet 1 Cap PO TID Tylenol (Acetaminophen) 325 Mg Tablet 325 Mg PO PRN Q4HRS PRN I have reviewed the current psychotropics carefully including drug interactions. Risk benefit ratio favors no change other than as noted in my dictated progress note. Diagnosis: Problems: (1) Hyponatremia (2) Dementia (3) Depression (4) Agitation KAMRON MENDEZ MD Mar 02, 2017 21:01
[2017-03-03] MEDS: ACETAMINOPHEN 325 MG TABLET PO SCH ×3 (05:42→20:29)
[2017-03-03 06:24] VITALS: BP 150/70
[2017-03-03] MEDS: LIDOCAINE (700MG/PATCH) PATCH. TD SCH (08:19)
[2017-03-03] MEDS: DULoxetine HCL 60 MG CAPSULE.DR PO SCH (08:20)
[2017-03-03] MEDS: PANTOPRAZOLE 40 MG TABLET. PO SCH (08:20)
[2017-03-03] MEDS: LISINOPRIL 10 MG TABLET PO SCH (08:20)
[2017-03-03] MEDS: CHOLESTYRAMINE/ASPARTAME 4 GM PACKET PO SCH ×2 (08:20→20:30)
[2017-03-03] MEDS: CHOLECALCIFEROL (VITAMIN D3) 1,000 UNIT TABLET PO SCH (08:20)
[2017-03-03] MEDS: LACTOBACILLUS RHAMNOSUS GG 1 CAPSULE. PO SCH ×3 (08:20→20:29)
[2017-03-03] MEDS: LINAGLIPTIN 5 MG TABLET PO SCH (08:20)
[2017-03-03] MEDS: LACTASE 3,000 UNIT TABLET PO PRN (08:20)
[2017-03-03] MEDS: TAMSULOSIN 0.4 MG CAP.ER.24H. PO SCH (08:20)
[2017-03-03] MEDS: AMOXICILLIN/K CLAV 500/125MG TABLET. PO SCH ×2 (08:21→20:29)
[2017-03-03] MEDS: FERROUS SULFATE 325 MG TABLET. PO SCH (08:21)
[2017-03-03] MEDS: MAGNESIUM OXIDE 400 MG TABLET PO SCH ×2 (08:21→20:30)
[2017-03-03] MEDS: QUEtiapine 25 MG TABLET. PO SCH ×3 (08:21→16:28)
[2017-03-03] MEDS: POTASSIUM CHLORIDE 20 MEQ TABLET.ER. PO SCH ×2 (08:21→16:28)
[2017-03-03] MEDS: MEMANTINE 5 MG TABLET. PO SCH ×2 (08:21→20:29)
[2017-03-03] MEDS: DIVALPROEX SODIUM 125 MG TABLET.DR. PO SCH ×3 (08:21→20:32)
[2017-03-03] MEDS: DEMECLOCYCLINE HCL 150 MG TABLET PO SCH ×2 (08:22→20:30)
[2017-03-03 08:49] LABS: BASO % 0 % (0-3); EOS # 0.1 x10^3/uL (0.0-0.7); EOS % 2 % (0-3); HEMATOCRIT 32.5 % (36.0-47.0); HEMOGLOBIN 11.5 g/dL (12.0-15.5); LYMPH # 1.6 x10^3/uL (1.0-4.8); LYMPH % 26 % (24-48); MEAN CORPUSCULAR HEMOGLOBIN 35 pg (25-35); MEAN CORPUSCULAR HGB CONC 35 g/dL (31-37); MEAN CORPUSCULAR VOLUME 100 fL (79-100); MONO # 0.4 x10^3/uL (0.0-1.1); MONO % 7 % (0-9); NEUT % 65 % (31-73); PLATELET COUNT 221 x10^3/uL (140-400); RED BLOOD COUNT 3.27 x10^6/uL (3.50-5.40); RED CELL DISTRIBUTION WIDTH 12.8 % (11.5-14.5); WHITE BLOOD COUNT 6.1 x10^3/uL (4.0-11.0)
[2017-03-03 09:01] LABS: ALBUMIN 3.3 g/dL (3.4-5.0); ALBUMIN/GLOBULIN RATIO 0.9 (1.0-1.7); ALK PHOS 94 U/L (46-116); ALT (SGPT) 39 U/L (14-59); ANION GAP 11 (6-14); AST (SGOT) 28 U/L (15-37); BLOOD UREA NITROGEN 14 mg/dL (7-20); BUN/CREATININE RATIO 12 (6-20); CALCIUM 8.9 mg/dL (8.5-10.1); CARBON DIOXIDE 24 mmol/L (21-32); CHLORIDE 96 mmol/L (98-107); CREATININE 1.2 mg/dL (0.6-1.0); GFR 43.1; GLUCOSE 98 mg/dL (70-99); POTASSIUM 4.8 mmol/L (3.5-5.1); SODIUM 131 mmol/L (136-145); TOTAL BILIRUBIN 0.3 mg/dL (0.2-1.0); TOTAL PROTEIN 6.9 g/dL (6.4-8.2)
[2017-03-03 09:04] LABS: VAL ACID 27 mcg/mL (50-100)
[2017-03-03 16:00] VITALS: BP 125/82
[2017-03-03] MEDS: traMADol 50 MG TABLET PO PRN (16:28)
--- NOTE | 2017-03-03 19:56 | PDOC ---
Exam Note: Fernando Note: Please also refer to the separate dictated note~for this date of service dictated separately.~Patient seen individually. Discussed the patient with Nursing staff reviewed the chart.~Reviewed interim history and current functioning. Reviewed vital signs,~Labs/ Radiology~and current medications noted below. Continue current treatment with the changes noted in the dictated addendum note Assessment: Vital Signs: Vital Signs Date Time Temp Pulse Resp B/P (MAP) Pulse Ox O2 Delivery O2 Flow Rate FiO2 03/03/17 16:00 98.9 76 19 125/82 (96) 99 03/02/17 05:32 Room Air I&O Intake and Output 03/03/17 07:00 Intake Total 720 ml Balance 720 ml Intake Oral 720 ml # Bowel Movements 2 Labs: Laboratory Tests Test 03/03/17 07:30 03/03/17 08:17 03/03/17 11:10 03/03/17 16:57 Glucose (Fingerstick) 96 mg/dL (70-99) 97 mg/dL (70-99) 135 mg/dL (70-99) H White Blood Count 6.1 x10^3/uL (4.0-11.0) Red Blood Count 3.27 x10^6/uL (3.50-5.40) L Hemoglobin 11.5 g/dL (12.0-15.5) L Hematocrit 32.5 % (36.0-47.0) L Mean Corpuscular Volume 100 fL (79-100) Mean Corpuscular Hemoglobin 35 pg (25-35) Mean Corpuscular Hemoglobin Concent 35 g/dL (31-37) Red Cell Distribution Width 12.8 % (11.5-14.5) Platelet Count 221 x10^3/uL (140-400) Neutrophils (%) (Auto) 65 % (31-73) Lymphocytes (%) (Auto) 26 % (24-48) Monocytes (%) (Auto) 7 % (0-9) Eosinophils (%) (Auto) 2 % (0-3) Basophils (%) (Auto) 0 % (0-3) Neutrophils # (Auto) 4.0 x10^3uL (1.8-7.7) Lymphocytes # (Auto) 1.6 x10^3/uL (1.0-4.8) Monocytes # (Auto) 0.4 x10^3/uL (0.0-1.1) Eosinophils # (Auto) 0.1 x10^3/uL (0.0-0.7) Basophils # (Auto) 0.0 x10^3/uL (0.0-0.2) Sodium Level 131 mmol/L (136-145) L Potassium Level 4.8 mmol/L (3.5-5.1) Chloride Level 96 mmol/L (98-107) L Carbon Dioxide Level 24 mmol/L (21-32) Anion Gap 11 (6-14) Blood Urea Nitrogen 14 mg/dL (7-20) Creatinine 1.2 mg/dL (0.6-1.0) H Estimated GFR (Cockcroft-Gault) 43.1 BUN/Creatinine Ratio 12 (6-20) Glucose Level 98 mg/dL (70-99) Calcium Level 8.9 mg/dL (8.5-10.1) Magnesium Level 2.0 mg/dL (1.8-2.4) Total Bilirubin 0.3 mg/dL (0.2-1.0) Aspartate Amino Transferase (AST) 28 U/L (15-37) Alanine Aminotransferase (ALT) 39 U/L (14-59) Alkaline Phosphatase 94 U/L (46-116) Total Protein 6.9 g/dL (6.4-8.2) Albumin 3.3 g/dL (3.4-5.0) L Albumin/Globulin Ratio 0.9 (1.0-1.7) L Valproic Acid Level 27 mcg/mL (50-100) L Valproic Acid Last Dose Date 03/02/17 Valproic Acid Last Dose Time 1400 Test 03/03/17 19:08 03/03/17 19:38 Glucose (Fingerstick) 100 mg/dL (70-99) H 102 mg/dL (70-99) H Current Medications: Meds: Current Medications Sodium Chloride 1,000 ml @ 1,000 mls/hr 1X ONCE IV Last administered on 02/20t 21:15; Start 02/20/17 at 21:15; Stop 02/20/17 at 22:14; Status DC Acetaminophen (Tylenol) 650 mg PRN Q6HRS PRN PO PAIN / TEMP; Start 02/20/17 at 22:15; Stop 02/21/17 at 07:13; Status DC Multi-Ingredient Ointment (Analgesic [place]) 1 mario PRN QID PRN TP MUSCLE PAIN; Start 02/20/17 at 22:15 Al Hydroxide/Mg Hydroxide (Mylanta Plus Xs) 15 ml PRN AFTMEALHC PRN PO DYSPEPSIA Last administered on 03/02/17 18:09; Start 02/20/17 at 22:15 Magnesium Hydroxide (Milk Of Magnesia) 2,400 mg PRN QHS PRN PO CONSTIPATION; Start 02/20/17 at 22:15 Donepezil HCl (Aricept) 5 mg QHS PO Last administered on 03/02/17 20:30; Start 02/20/17 at 23:30 Lorazepam (Ativan) 0.5 mg PRN TID PRN PO ANXIETY / AGITATION; Start 02/20/17 at 22:30 Lorazepam (Ativan) 0.5 mg TID PO Last administered on 02/22/17 19:51; Start 02/20/17 at 23:30; Stop 02/22/17 at 23:29; Status DC Trazodone HCl (Desyrel) 50 mg QHS PO Last administered on 03/02/17 20:34; Start 02/20/17 at 23:30 Memantine (Namenda) 5 mg BID PO Last administered on 03/03/17 08:21; Start 02/20/17 at 23:30 Cholestyramine Resin (Questran Light) 4 gm BID PO Last administered on 08:20; Start 02/21/17 at 09:00 Diclofenac Sodium (Voltaren) 1 mario BID TP Last administered on 02/28/17 20:37 ; Start 02/21/17 at 09:00; Stop 03/01/17 at 14:35; Status DC Magnesium Oxide (Magnesium Oxide) 400 mg BID PO Last administered on 08:21; Start 02/21/17 at 09:00 Potassium Chloride (Klor-Con) 20 meq BIDWMEALS PO Last administered on 16:28; Start 02/21/17 at 08:00 Cefpodoxime Proxetil (Vantin) 100 mg BID PO Last administered on 02/21/17 20: 48; Start 02/21/17 at 10:15; Stop 02/21/17 at 21:01; Status DC Demeclocycline HCl (Declomycin) 300 mg BID PO Last administered on 03/03/17 08:22; Start 02/20/17 at 23:30 Lactobacillus Rhamnosus (Culturelle) 1 cap TID PO Last administered on 13:16; Start 02/20/17 at 23:30 Acetaminophen (Tylenol) 325 mg PRN Q4HRS PRN PO PAIN / TEMP Last administered on 02/22/17 06:27; Start 02/21/17 at 06:45; Stop 02/22/17 at 11:14; Status DC Vitamin D (Vitamin D3) 1,000 unit DAILY PO Last administered on 02/22/17 07: 37; Start 02/21/17 at 09:00; Stop 02/22/17 at 13:09; Status DC Ferrous Sulfate (Feosol) 325 mg DAILY PO Last administered on 03/03/17 08:21 ; Start 02/21/17 at 09:00 Lactase (Lactaid) 3,000 unit TIDAC PRN PO Lactose Intolerance Last administered on 03/03/17 08:20; Start 02/21/17 at 06:45 Linagliptin (Tradjenta) 5 mg DAILY PO Last administered on 03/03/17 08:20; Start 02/21/17 at 09:00 Lisinopril (Prinivil) 10 mg DAILY PO Last administered on 03/03/17 08:20; Start 02/21/17 at 09:00 Pantoprazole Sodium (Protonix) 20 mg DAILY PO Last administered on 02/22/17 07:37; Start 02/21/17 at 09:00; Stop 02/22/17 at 11:14; Status DC Tamsulosin HCl (Flomax) 0.4 mg DAILY PO Last administered on 03/03/17 08:20; Start 02/21/17 at 09:00 Insulin Detemir (Levemir) 20 units QHS SQ Last administered on 02/21/17 20:51 ; Start 02/21/17 at 21:00; Stop 02/22/17 at 13:09; Status DC Tramadol HCl (Ultram) 50 mg PRN Q8HRS PRN PO PAIN Last administered on 16:28; Start 02/22/17 at 07:30 Glucose (Insta-Glucose) 15 gm PRN Q15MIN PRN PO LOW BLOOD SUGAR Last administered on 02/22/17 08:06; Start 02/22/17 at 08:00 Acetaminophen (Tylenol) 650 mg Q8HRS PO Last administered on 03/03/17 13:16; Start 02/22/17 at 14:00 Pantoprazole Sodium (Protonix) 40 mg DAILYAC PO Last administered on 08:20; Start 02/23/17 at 07:30 Vitamin D (Vitamin D3) 2,000 unit DAILY PO Last administered on 03/03/17 08: 20; Start 02/23/17 at 09:00 Insulin Detemir (Levemir) 10 units QHS SQ Last administered on 02/22/17 19:54 ; Start 02/22/17 at 21:00; Stop 02/23/17 at 11:02; Status DC Loperamide HCl (Imodium) 2 mg PRN Q15MIN PRN PO DIARRHEA Last administered on 02/22/17 17:30; Start 02/22/17 at 16:30 Quetiapine Fumarate (SEROquel) 12.5 mg BID92 PO Last administered on 13:16; Start 02/23/17 at 09:00 Lorazepam (Ativan) 0.25 mg DAILY PO Last administered on 02/23/17 07:52; Start 02/23/17 at 09:00; Stop 02/23/17 at 09:01; Status DC Lorazepam (Ativan) 0.5 mg BID@1400,2100 PO Last administered on 02/23/17 19: 54; Start 02/23/17 at 14:00; Stop 02/23/17 at 21:01; Status DC Lorazepam (Ativan) 0.25 mg BID@0900,1400 PO Last administered on 02/24/17 13: 59; Start 02/24/17 at 09:00; Stop 02/24/17 at 14:01; Status DC Lorazepam (Ativan) 0.5 mg HS PO Last administered on 02/24/17 20:27; Start 02/24/17 at 21:00; Stop 02/24/17 at 21:01; Status DC Lorazepam (Ativan) 0.25 mg TID PO Last administered on 02/25/17 20:19; Start 02/25/17 at 09:00; Stop 02/25/17 at 21:01; Status DC Lorazepam (Ativan) 0.25 mg BID PO Last administered on 02/26/17 20:19; Start 02/26/17 at 09:00; Stop 02/26/17 at 21:01; Status DC Lorazepam (Ativan) 0.25 mg DAILY PO Last administered on 02/27/17 08:32; Start 02/27/17 at 09:00; Stop 02/27/17 at 09:01; Status DC Insulin Detemir (Levemir) 5 units QHS SQ Last administered on 03/02/17 20:35 ; Start 02/23/17 at 21:00 Quetiapine Fumarate (SEROquel) 12.5 mg DAILYWSUP PO Last administered on 16:28; Start 02/24/17 at 17:00 Duloxetine HCl (Cymbalta) 30 mg DAILY PO Last administered on 02/28/17 08:15 ; Start 02/26/17 at 09:00; Stop 03/01/17 at 08:59; Status DC Duloxetine HCl (Cymbalta) 60 mg DAILY PO Last administered on 03/03/17 08:20 ; Start 03/01/17 at 09:00 Divalproex Sodium (Depakote) 125 mg BID92 PO Last administered on 03/03/17 08 :21; Start 02/28/17 at 09:00; Stop 03/03/17 at 13:07; Status DC Lidocaine (Lidoderm) 1 patch DAILY TD Last administered on 03/03/17 08:19; Start 03/02/17 at 12:30 Amoxicillin/ Clavulanate Potassium (Augmentin 500/ 125mg) 1 tab BID PO Last administered on 03/03/17 08:21; Start 03/02/17 at 21:00 Divalproex Sodium (Depakote) 125 mg TID PO Last administered on 03/03/17 13: 16; Start 03/03/17 at 14:00 Active Scripts Active Reported Zofran (Ondansetron Hcl) 4 Mg Tablet 4 Mg PO TIDAC Voltaren (Diclofenac Sodium) 100 Gm Gel..gram. 1 Mario TP BID Trazodone Hcl 50 Mg Tablet 50 Mg PO QHS Tradjenta (Linagliptin) 5 Mg Tablet 5 Mg PO DAILY Tamsulosin Hcl 0.4 Mg Cap.er.24h 0.4 Mg PO DAILY Questran Packet (Cholestyramine (With Sugar)) 4 Gm Powd.pack 1 Packet PO BID Protonix (Pantoprazole Sodium) 20 Mg Tablet.dr 20 Mg PO DAILY Klor-Con M20 (Potassium Chloride) 20 Meq Tab.er.prt 20 Meq PO BID Namenda Xr (Memantine Hcl) 14 Mg Cap.spr.24 14 Mg PO QHS Alum-Mag Hydroxide-Simeth Liq (Mag Hydrox/Al Hydrox/Simeth) 360 Ml Oral.susp 30 Ml PO PRN Q6HRS PRN Magnesium Oxide 400 Mg Tablet 400 Mg PO BID Loperamide (Loperamide Hcl) 2 Mg Tablet 2 Tab PO PRN PRN Loperamide (Loperamide Hcl) 2 Mg Tablet 2 Mg PO PRN PRN Lisinopril 10 Mg Tablet 10 Mg PO DAILY Lantus Solostar (Insulin Glargine,Hum.rec.anlog) 100 Unit/1 Ml Insuln.pen 20 Unit SQ DAILY Lactaid (Lactase) 3,000 Unit Tablet 3,000 Unit PO PRN PRN Ferrous Sulfate 325 Mg Tablet 325 Mg PO DAILY Demeclocycline Hcl 300 Mg Tablet 300 Mg PO BID Vitamin D3 (Cholecalciferol (Vitamin D3)) 1,000 Unit Tablet 1,000 Unit PO DAILY Cefdinir 300 Mg Capsule 300 Mg PO BID Ativan (Lorazepam) 0.5 Mg Tablet 0.5 Mg PO TID Ativan (Lorazepam) 0.5 Mg Tablet 0.5 Mg PO PRN TID PRN Aricept (Donepezil Hcl) 5 Mg Tablet 5 Mg PO QHS Analpram Hc 2.5%-1% Lotion (Hydrocortisone/Pramoxine) 59 Ml Lotion 1 Mario ME PRN TID PRN Acidophilus (Lactobacillus Acidophilus) 1 Each Tablet 1 Cap PO TID Tylenol (Acetaminophen) 325 Mg Tablet 325 Mg PO PRN Q4HRS PRN I have reviewed the current psychotropics carefully including drug interactions. Risk benefit ratio favors no change other than as noted in my dictated progress note. Diagnosis: Problems: (1) Hyponatremia (2) Dementia (3) Depression (4) Agitation KAMRON MENDEZ MD Mar 03, 2017 19:56
--- NOTE | 2017-03-03 20:12 | PN ---
DATE: 03/02/2017 This late entry 03/02/2017 covers elements not covered in my initial note of 03/02/2017. SUBJECTIVE: met I with the patient evening of 03/02/2017. Reviewed information with Dr. Bullard, who covered for me on the patient for the past several days. Overall, the patient remains somewhat somatically preoccupied, withdrawn to her room, resistive with cares, helpless, whining, confused. REVIEW OF SYSTEMS: No CV, , pulmonary, eye, ENT system symptoms on review. Reliability poor. MENTAL STATUS EXAM: The patient has vague somatic symptoms. Ambulates with walker. Insight, judgment, recent and remote memory, attention, concentration, fund of knowledge poor, consistent with her diagnoses. IMPRESSION: Major neurocognitive disorder, Alzheimer, vascular with depression, delusion, behavioral disturbance; anxiety disorder, unspecified; impulse control disorder, unspecified. PLAN: Continue Cymbalta 60 mg a day, Depakote 125 mg b.i.d., Aricept 5 mg a day, Namenda 5 mg twice a day, Seroquel 12.5 mg twice a day 9:00 a.m. and 2:00 p.m., and 12.5 mg at 5 p.m., trazodone 50 mg at bedtime. Lorazepam p.r.n., scheduled lorazepam has been tapered off. Valproic acid level is 27 on the morning of 03/03/2017 and we will increase the Depakote to 125 mg 3 times a day. Check labs level in 3 days. Reviewed drug interactions. Risk/benefit ratio favors no further change. MAN Arabella MENDEZ MD DR: MERLIN/sabrina JOB#: [id number] / [id number]
[2017-03-03] MEDS: traZODone 50 MG TABLET. PO SCH (20:29)
[2017-03-03] MEDS: DONEPEZIL HCL 5 MG TABLET. PO SCH (20:29)
[2017-03-03] MEDS: INSULIN DETEMIR 300 UNITS/3 ML INSULN.PEN. SQ SCH (21:59)
[2017-03-04] MEDS: ACETAMINOPHEN 325 MG TABLET PO SCH ×3 (05:58→19:55)
[2017-03-04 06:19] VITALS: BP 148/79
[2017-03-04] MEDS: LIDOCAINE (700MG/PATCH) PATCH. TD SCH (08:41)
[2017-03-04] MEDS: DIVALPROEX SODIUM 125 MG TABLET.DR. PO SCH ×3 (08:41→19:54)
[2017-03-04] MEDS: TAMSULOSIN 0.4 MG CAP.ER.24H. PO SCH (08:42)
[2017-03-04] MEDS: LACTOBACILLUS RHAMNOSUS GG 1 CAPSULE. PO SCH ×3 (08:42→19:54)
[2017-03-04] MEDS: LINAGLIPTIN 5 MG TABLET PO SCH (08:42)
[2017-03-04] MEDS: CHOLECALCIFEROL (VITAMIN D3) 1,000 UNIT TABLET PO SCH (08:42)
[2017-03-04] MEDS: PANTOPRAZOLE 40 MG TABLET. PO SCH (08:42)
[2017-03-04] MEDS: POTASSIUM CHLORIDE 20 MEQ TABLET.ER. PO SCH ×2 (08:42→17:39)
[2017-03-04] MEDS: QUEtiapine 25 MG TABLET. PO SCH ×3 (08:42→17:39)
[2017-03-04] MEDS: CHOLESTYRAMINE/ASPARTAME 4 GM PACKET PO SCH ×2 (08:43→19:54)
[2017-03-04] MEDS: LACTASE 3,000 UNIT TABLET PO PRN ×2 (08:43→14:30)
[2017-03-04] MEDS: DULoxetine HCL 60 MG CAPSULE.DR PO SCH (08:43)
[2017-03-04] MEDS: FERROUS SULFATE 325 MG TABLET. PO SCH (08:43)
[2017-03-04] MEDS: LISINOPRIL 10 MG TABLET PO SCH (08:43)
[2017-03-04] MEDS: MEMANTINE 5 MG TABLET. PO SCH ×2 (08:43→19:54)
[2017-03-04] MEDS: AMOXICILLIN/K CLAV 500/125MG TABLET. PO SCH (08:44)
[2017-03-04] MEDS: MAGNESIUM OXIDE 400 MG TABLET PO SCH ×2 (08:45→19:55)
[2017-03-04] MEDS: DEMECLOCYCLINE HCL 150 MG TABLET PO SCH ×2 (08:46→19:57)
[2017-03-04 15:53] VITALS: BP 122/70
--- NOTE | 2017-03-04 16:01 | RAD ---
CT of the abdomen without contrast, 03/04/2017: History: Abdominal pain Noncontrast scans were obtained as requested. There is a moderate-sized hiatal hernia. The bowel loops are not dilated. No free fluid or free air is evident in the abdomen. The gallbladder is surgically absent. There is no evidence of a hepatic mass or bile duct dilatation. There are 2 tiny bubbles of gas in the central aspect of the liver suggesting minimal pneumobilia. No pancreatic abnormality is detected. The spleen is of normal size. The unopacified kidneys demonstrate mild cortical scarring and mild streaky perinephric edema. The renal collecting systems are not dilated. No adrenal abnormality is detected. Mild aortic calcific plaquing is present without evidence of aneurysm. No abdominal adenopathy is seen. IMPRESSION: 1. Moderate sized hiatal hernia. 2. Status post cholecystectomy. 3. Minimal pneumobilia. This is most commonly due to previous surgery or biliary intervention such as a sphincterotomy. Bohler tract infection is less likely. 4. Mild bilateral renal scarring and perinephric edema. PQRS Compliance Statement: One or more of the following individualized dose reduction techniques were utilized for this examination: 1. Automated exposure control 2. Adjustment of the mA and/or kV according to patient size 3. Use of iterative reconstruction technique
[2017-03-04] MEDS: DONEPEZIL HCL 5 MG TABLET. PO SCH (19:54)
[2017-03-04] MEDS: traZODone 50 MG TABLET. PO SCH (19:55)
[2017-03-04] MEDS: INSULIN DETEMIR 300 UNITS/3 ML INSULN.PEN. SQ SCH (19:56)
[2017-03-04] MEDS: NITROFURANTOIN MONOHYD/M-CRYST 100 MG CAPSULE. PO SCH (19:57)
--- NOTE | 2017-03-04 20:08 | PDOC ---
Exam Note: Fernando Note: Please also refer to the separate dictated note~for this date of service dictated separately.~Patient seen individually. Discussed the patient with Nursing staff reviewed the chart.~Reviewed interim history and current functioning. Reviewed vital signs,~Labs/ Radiology~and current medications noted below. Continue current treatment with the changes noted in the dictated addendum note Assessment: Vital Signs: Vital Signs Date Time Temp Pulse Resp B/P (MAP) Pulse Ox O2 Delivery O2 Flow Rate FiO2 03/04/17 15:53 97.6 90 18 122/70 (87) 99 03/02/17 05:32 Room Air I&O Intake and Output 03/04/17 07:00 Intake Total 560 ml Balance 560 ml Intake Oral 560 ml # Voids 1 Labs: Laboratory Tests Test 03/04/17 07:45 03/04/17 11:50 03/04/17 16:51 03/04/17 19:00 Glucose (Fingerstick) 92 mg/dL (70-99) 95 mg/dL (70-99) 97 mg/dL (70-99) 108 mg/dL (70-99) H Current Medications: Meds: Current Medications Sodium Chloride 1,000 ml @ 1,000 mls/hr 1X ONCE IV Last administered on 02/20 21:15; Start 02/20/17 at 21:15; Stop 02/20/17 at 22:14; Status DC Acetaminophen (Tylenol) 650 mg PRN Q6HRS PRN PO PAIN / TEMP; Start 02/20/17 at 22:15; Stop 02/21/17 at 07:13; Status DC Multi-Ingredient Ointment (Analgesic [place]) 1 mario PRN QID PRN TP MUSCLE PAIN; Start 02/20/17 at 22:15 Al Hydroxide/Mg Hydroxide (Mylanta Plus Xs) 15 ml PRN AFTMEALHC PRN PO DYSPEPSIA Last administered on 03/02/17 18:09; Start 02/20/17 at 22:15 Magnesium Hydroxide (Milk Of Magnesia) 2,400 mg PRN QHS PRN PO CONSTIPATION; Start 02/20/17 at 22:15 Donepezil HCl (Aricept) 5 mg QHS PO Last administered on 03/04/17 19:54; Start 02/20/17 at 23:30 Lorazepam (Ativan) 0.5 mg PRN TID PRN PO ANXIETY / AGITATION; Start 02/20/17 at 22:30 Lorazepam (Ativan) 0.5 mg TID PO Last administered on 02/22/17 19:51; Start 02/20/17 at 23:30; Stop 02/22/17 at 23:29; Status DC Trazodone HCl (Desyrel) 50 mg QHS PO Last administered on 03/04/17 19:55; Start 02/20/17 at 23:30 Memantine (Namenda) 5 mg BID PO Last administered on 03/04/17 19:54; Start 02/20/17 at 23:30 Cholestyramine Resin (Questran Light) 4 gm BID PO Last administered on 19:54; Start 02/21/17 at 09:00 Diclofenac Sodium (Voltaren) 1 mario BID TP Last administered on 02/28/17 20:37 ; Start 02/21/17 at 09:00; Stop 03/01/17 at 14:35; Status DC Magnesium Oxide (Magnesium Oxide) 400 mg BID PO Last administered on 19:55; Start 02/21/17 at 09:00 Potassium Chloride (Klor-Con) 20 meq BIDWMEALS PO Last administered on 17:39; Start 02/21/17 at 08:00 Cefpodoxime Proxetil (Vantin) 100 mg BID PO Last administered on 02/21/17 20: 48; Start 02/21/17 at 10:15; Stop 02/21/17 at 21:01; Status DC Demeclocycline HCl (Declomycin) 300 mg BID PO Last administered on 03/04/17 19:57; Start 02/20/17 at 23:30 Lactobacillus Rhamnosus (Culturelle) 1 cap TID PO Last administered on 19:54; Start 02/20/17 at 23:30 Acetaminophen (Tylenol) 325 mg PRN Q4HRS PRN PO PAIN / TEMP Last administered on 02/22/17 06:27; Start 02/21/17 at 06:45; Stop 02/22/17 at 11:14; Status DC Vitamin D (Vitamin D3) 1,000 unit DAILY PO Last administered on 02/22/17 07: 37; Start 02/21/17 at 09:00; Stop 02/22/17 at 13:09; Status DC Ferrous Sulfate (Feosol) 325 mg DAILY PO Last administered on 03/04/17 08:43 ; Start 02/21/17 at 09:00 Lactase (Lactaid) 3,000 unit TIDAC PRN PO Lactose Intolerance Last administered on 03/04/17 14:30; Start 02/21/17 at 06:45 Linagliptin (Tradjenta) 5 mg DAILY PO Last administered on 03/04/17 08:42; Start 02/21/17 at 09:00 Lisinopril (Prinivil) 10 mg DAILY PO Last administered on 03/04/17 08:43; Start 02/21/17 at 09:00 Pantoprazole Sodium (Protonix) 20 mg DAILY PO Last administered on 02/22/17 07:37; Start 02/21/17 at 09:00; Stop 02/22/17 at 11:14; Status DC Tamsulosin HCl (Flomax) 0.4 mg DAILY PO Last administered on 03/04/17 08:42; Start 02/21/17 at 09:00 Insulin Detemir (Levemir) 20 units QHS SQ Last administered on 02/21/17 20:51 ; Start 02/21/17 at 21:00; Stop 02/22/17 at 13:09; Status DC Tramadol HCl (Ultram) 50 mg PRN Q8HRS PRN PO PAIN Last administered on 16:28; Start 02/22/17 at 07:30 Glucose (Insta-Glucose) 15 gm PRN Q15MIN PRN PO LOW BLOOD SUGAR Last administered on 02/22/17 08:06; Start 02/22/17 at 08:00 Acetaminophen (Tylenol) 650 mg Q8HRS PO Last administered on 03/04/17 19:55; Start 02/22/17 at 14:00 Pantoprazole Sodium (Protonix) 40 mg DAILYAC PO Last administered on 08:42; Start 02/23/17 at 07:30 Vitamin D (Vitamin D3) 2,000 unit DAILY PO Last administered on 03/04/17 08: 42; Start 02/23/17 at 09:00 Insulin Detemir (Levemir) 10 units QHS SQ Last administered on 02/22/17 19:54 ; Start 02/22/17 at 21:00; Stop 02/23/17 at 11:02; Status DC Loperamide HCl (Imodium) 2 mg PRN Q15MIN PRN PO DIARRHEA Last administered on 02/22/17 17:30; Start 02/22/17 at 16:30 Quetiapine Fumarate (SEROquel) 12.5 mg [id number] PO Last administered on 14:30; Start 02/23/17 at 09:00 Lorazepam (Ativan) 0.25 mg DAILY PO Last administered on 02/23/17 07:52; Start 02/23/17 at 09:00; Stop 02/23/17 at 09:01; Status DC Lorazepam (Ativan) 0.5 mg BID@1400,2100 PO Last administered on 02/23/17 19: 54; Start 02/23/17 at 14:00; Stop 02/23/17 at 21:01; Status DC Lorazepam (Ativan) 0.25 mg BID@0900,1400 PO Last administered on 02/24/17 13: 59; Start 02/24/17 at 09:00; Stop 02/24/17 at 14:01; Status DC Lorazepam (Ativan) 0.5 mg HS PO Last administered on 02/24/17 20:27; Start 02/24/17 at 21:00; Stop 02/24/17 at 21:01; Status DC Lorazepam (Ativan) 0.25 mg TID PO Last administered on 02/25/17 20:19; Start 02/25/17 at 09:00; Stop 02/25/17 at 21:01; Status DC Lorazepam (Ativan) 0.25 mg BID PO Last administered on 02/26/17 20:19; Start 02/26/17 at 09:00; Stop 02/26/17 at 21:01; Status DC Lorazepam (Ativan) 0.25 mg DAILY PO Last administered on 02/27/17 08:32; Start 02/27/17 at 09:00; Stop 02/27/17 at 09:01; Status DC Insulin Detemir (Levemir) 5 units QHS SQ Last administered on 03/04/17 19:56 ; Start 02/23/17 at 21:00 Quetiapine Fumarate (SEROquel) 12.5 mg DAILYWSUP PO Last administered on 17:39; Start 02/24/17 at 17:00 Duloxetine HCl (Cymbalta) 30 mg DAILY PO Last administered on 02/28/17 08:15 ; Start 02/26/17 at 09:00; Stop 03/01/17 at 08:59; Status DC Duloxetine HCl (Cymbalta) 60 mg DAILY PO Last administered on 03/04/17 08:43 ; Start 03/01/17 at 09:00 Divalproex Sodium (Depakote) 125 mg [id number] PO Last administered on 03/03/17 08 :21; Start 02/28/17 at 09:00; Stop 03/03/17 at 13:07; Status DC Lidocaine (Lidoderm) 1 patch DAILY TD Last administered on 03/04/17 08:41; Start 03/02/17 at 12:30 Amoxicillin/ Clavulanate Potassium (Augmentin 500/ 125mg) 1 tab BID PO Last administered on 03/04/17 08:44; Start 03/02/17 at 21:00; Stop 03/04/17 at 18 :40; Status DC Divalproex Sodium (Depakote) 125 mg TID PO Last administered on 03/04/17 19: 54; Start 03/03/17 at 14:00 Nitrofurantoin Macrocrystals (Macrobid) 100 mg BID PO Last administered on 19:57; Start 03/04/17 at 21:00; Stop 03/09/17 at 21:00 Active Scripts Active Reported Zofran (Ondansetron Hcl) 4 Mg Tablet 4 Mg PO TIDAC Voltaren (Diclofenac Sodium) 100 Gm Gel..gram. 1 Mario TP BID Trazodone Hcl 50 Mg Tablet 50 Mg PO QHS Tradjenta (Linagliptin) 5 Mg Tablet 5 Mg PO DAILY Tamsulosin Hcl 0.4 Mg Cap.er.24h 0.4 Mg PO DAILY Questran Packet (Cholestyramine (With Sugar)) 4 Gm Powd.pack 1 Packet PO BID Protonix (Pantoprazole Sodium) 20 Mg Tablet.dr 20 Mg PO DAILY Klor-Con M20 (Potassium Chloride) 20 Meq Tab.er.prt 20 Meq PO BID Namenda Xr (Memantine Hcl) 14 Mg Cap.spr.24 14 Mg PO QHS Alum-Mag Hydroxide-Simeth Liq (Mag Hydrox/Al Hydrox/Simeth) 360 Ml Oral.susp 30 Ml PO PRN Q6HRS PRN Magnesium Oxide 400 Mg Tablet 400 Mg PO BID Loperamide (Loperamide Hcl) 2 Mg Tablet 2 Tab PO PRN PRN Loperamide (Loperamide Hcl) 2 Mg Tablet 2 Mg PO PRN PRN Lisinopril 10 Mg Tablet 10 Mg PO DAILY Lantus Solostar (Insulin Glargine,Hum.rec.anlog) 100 Unit/1 Ml Insuln.pen 20 Unit SQ DAILY Lactaid (Lactase) 3,000 Unit Tablet 3,000 Unit PO PRN PRN Ferrous Sulfate 325 Mg Tablet 325 Mg PO DAILY Demeclocycline Hcl 300 Mg Tablet 300 Mg PO BID Vitamin D3 (Cholecalciferol (Vitamin D3)) 1,000 Unit Tablet 1,000 Unit PO DAILY Cefdinir 300 Mg Capsule 300 Mg PO BID Ativan (Lorazepam) 0.5 Mg Tablet 0.5 Mg PO TID Ativan (Lorazepam) 0.5 Mg Tablet 0.5 Mg PO PRN TID PRN Aricept (Donepezil Hcl) 5 Mg Tablet 5 Mg PO QHS Analpram Hc 2.5%-1% Lotion (Hydrocortisone/Pramoxine) 59 Ml Lotion 1 Mario GA PRN TID PRN Acidophilus (Lactobacillus Acidophilus) 1 Each Tablet 1 Cap PO TID Tylenol (Acetaminophen) 325 Mg Tablet 325 Mg PO PRN Q4HRS PRN I have reviewed the current psychotropics carefully including drug interactions. Risk benefit ratio favors no change other than as noted in my dictated progress note. Diagnosis: Problems: (1) Hyponatremia (2) Dementia (3) Depression (4) Agitation KAMRON MENDEZ MD Mar 04, 2017 20:08
[2017-03-04] MEDS: traMADol 50 MG TABLET PO PRN (21:56)
--- NOTE | 2017-03-05 03:40 | PN ---
DATE: 03/03/2017 This is a late entry 03/03, covers elements not covered in my initial note 03/03. SUBJECTIVE: I met with the patient in the evening of 03/03. The patient remains withdrawn, somatically preoccupied, spends much day in bed that is where I met with her in her room. She does have a UTI otherwise had a good day. Previous 2 evenings, she had complained of increasing pain during suppertime. REVIEW OF SYSTEMS: No CV, , pulmonary, eye, ENT system symptoms on review. She has vague somatic symptoms. Reliability poor. MENTAL STATUS EXAM: Oriented to herself. Insight, judgment, recent and remote memory, attention, concentration, fund of knowledge poor, consistent with her diagnosis mentioned in my initial note. PLAN: Treat the UTI. Maintain current psychotropics. Seroquel is 12.5 mg 3 times a day. We will increase it to 4 times a day. Adjust further as clinically indicated. MAN Arabella MENDEZ MD DR: MERLIN/sabrina JOB#: [id number] / [id number]
[2017-03-05] MEDS: ACETAMINOPHEN 325 MG TABLET PO SCH ×3 (06:05→20:21)
[2017-03-05 06:13] VITALS: BP 119/74
[2017-03-05] MEDS: CHOLESTYRAMINE/ASPARTAME 4 GM PACKET PO SCH ×2 (08:12→20:20)
[2017-03-05] MEDS: NITROFURANTOIN MONOHYD/M-CRYST 100 MG CAPSULE. PO SCH (08:12)
[2017-03-05] MEDS: QUEtiapine 25 MG TABLET. PO SCH ×5 (08:12→20:23)
[2017-03-05] MEDS: CHOLECALCIFEROL (VITAMIN D3) 1,000 UNIT TABLET PO SCH (08:12)
[2017-03-05] MEDS: POTASSIUM CHLORIDE 20 MEQ TABLET.ER. PO SCH ×2 (08:12→16:19)
[2017-03-05] MEDS: DIVALPROEX SODIUM 125 MG TABLET.DR. PO SCH ×3 (08:13→20:20)
[2017-03-05] MEDS: TAMSULOSIN 0.4 MG CAP.ER.24H. PO SCH (08:13)
[2017-03-05] MEDS: FERROUS SULFATE 325 MG TABLET. PO SCH (08:13)
[2017-03-05] MEDS: MEMANTINE 5 MG TABLET. PO SCH ×2 (08:13→20:20)
[2017-03-05] MEDS: LACTOBACILLUS RHAMNOSUS GG 1 CAPSULE. PO SCH ×3 (08:13→20:20)
[2017-03-05] MEDS: LISINOPRIL 10 MG TABLET PO SCH (08:13)
[2017-03-05] MEDS: LINAGLIPTIN 5 MG TABLET PO SCH (08:13)
[2017-03-05] MEDS: LACTASE 3,000 UNIT TABLET PO PRN (08:13)
[2017-03-05] MEDS: MAGNESIUM OXIDE 400 MG TABLET PO SCH ×2 (08:13→20:20)
[2017-03-05] MEDS: PANTOPRAZOLE 40 MG TABLET. PO SCH (08:13)
[2017-03-05] MEDS: DULoxetine HCL 60 MG CAPSULE.DR PO SCH (08:14)
[2017-03-05] MEDS: DEMECLOCYCLINE HCL 150 MG TABLET PO SCH ×2 (08:25→20:25)
[2017-03-05] MEDS: LIDOCAINE (700MG/PATCH) PATCH. TD SCH (08:25)
[2017-03-05] MEDS: CIPROFLOXACIN HCL 500 MG TABLET PO SCH (14:35)
[2017-03-05 15:32] VITALS: BP 99/66
[2017-03-05] MEDS: MAG HYDROX/AL HYDROX/SIMETH 30 ML ORAL.SUSP PO PRN (16:23)
--- NOTE | 2017-03-05 20:05 | PDOC ---
Exam Note: Fernando Note: Please also refer to the separate dictated note~for this date of service dictated separately.~Patient seen individually. Discussed the patient with Nursing staff reviewed the chart.~Reviewed interim history and current functioning. Reviewed vital signs,~Labs/ Radiology~and current medications noted below. Continue current treatment with the changes noted in the dictated addendum note Assessment: Vital Signs: Vital Signs Date Time Temp Pulse Resp B/P (MAP) Pulse Ox O2 Delivery O2 Flow Rate FiO2 03/05/17 15:32 97.6 88 20 99/66 (77) 98 Room Air I&O Intake and Output 03/05/17 07:00 Intake Total 360 ml Balance 360 ml Intake Oral 360 ml # Voids 1 # Bowel Movements 1 Labs: Laboratory Tests Test 03/05/17 07:21 03/05/17 11:52 03/05/17 16:43 03/05/17 19:11 Glucose (Fingerstick) 79 mg/dL (70-99) 131 mg/dL (70-99) H 99 mg/dL (70-99) 118 mg/dL (70-99) H Current Medications: Meds: Current Medications Sodium Chloride 1,000 ml @ 1,000 mls/hr 1X ONCE IV Last administered on 02/20 21:15; Start 02/20/17 at 21:15; Stop 02/20/17 at 22:14; Status DC Acetaminophen (Tylenol) 650 mg PRN Q6HRS PRN PO PAIN / TEMP; Start 02/20/17 at 22:15; Stop 02/21/17 at 07:13; Status DC Multi-Ingredient Ointment (Analgesic [place]) 1 mario PRN QID PRN TP MUSCLE PAIN; Start 02/20/17 at 22:15 Al Hydroxide/Mg Hydroxide (Mylanta Plus Xs) 15 ml PRN AFTMEALHC PRN PO DYSPEPSIA Last administered on 03/05/17 16:23; Start 02/20/17 at 22:15 Magnesium Hydroxide (Milk Of Magnesia) 2,400 mg PRN QHS PRN PO CONSTIPATION; Start 02/20/17 at 22:15 Donepezil HCl (Aricept) 5 mg QHS PO Last administered on 03/04/17 19:54; Start 02/20/17 at 23:30 Lorazepam (Ativan) 0.5 mg PRN TID PRN PO ANXIETY / AGITATION; Start 02/20/17 at 22:30 Lorazepam (Ativan) 0.5 mg TID PO Last administered on 02/22/17 19:51; Start 02/20/17 at 23:30; Stop 02/22/17 at 23:29; Status DC Trazodone HCl (Desyrel) 50 mg QHS PO Last administered on 03/04/17 19:55; Start 02/20/17 at 23:30 Memantine (Namenda) 5 mg BID PO Last administered on 03/05/17 08:13; Start 02/20/17 at 23:30 Cholestyramine Resin (Questran Light) 4 gm BID PO Last administered on 08:12; Start 02/21/17 at 09:00 Diclofenac Sodium (Voltaren) 1 mario BID TP Last administered on 02/28/17 20:37 ; Start 02/21/17 at 09:00; Stop 03/01/17 at 14:35; Status DC Magnesium Oxide (Magnesium Oxide) 400 mg BID PO Last administered on 08:13; Start 02/21/17 at 09:00 Potassium Chloride (Klor-Con) 20 meq BIDWMEALS PO Last administered on 16:19; Start 02/21/17 at 08:00 Cefpodoxime Proxetil (Vantin) 100 mg BID PO Last administered on 02/21/17 20: 48; Start 02/21/17 at 10:15; Stop 02/21/17 at 21:01; Status DC Demeclocycline HCl (Declomycin) 300 mg BID PO Last administered on 03/05/17 08:25; Start 02/20/17 at 23:30 Lactobacillus Rhamnosus (Culturelle) 1 cap TID PO Last administered on 13:28; Start 02/20/17 at 23:30 Acetaminophen (Tylenol) 325 mg PRN Q4HRS PRN PO PAIN / TEMP Last administered on 02/22/17 06:27; Start 02/21/17 at 06:45; Stop 02/22/17 at 11:14; Status DC Vitamin D (Vitamin D3) 1,000 unit DAILY PO Last administered on 02/22/17 07: 37; Start 02/21/17 at 09:00; Stop 02/22/17 at 13:09; Status DC Ferrous Sulfate (Feosol) 325 mg DAILY PO Last administered on 03/05/17 08:13 ; Start 02/21/17 at 09:00 Lactase (Lactaid) 3,000 unit TIDAC PRN PO Lactose Intolerance Last administered on 03/05/17 08:13; Start 02/21/17 at 06:45 Linagliptin (Tradjenta) 5 mg DAILY PO Last administered on 03/05/17 08:13; Start 02/21/17 at 09:00 Lisinopril (Prinivil) 10 mg DAILY PO Last administered on 03/05/17 08:13; Start 02/21/17 at 09:00 Pantoprazole Sodium (Protonix) 20 mg DAILY PO Last administered on 02/22/17 07:37; Start 02/21/17 at 09:00; Stop 02/22/17 at 11:14; Status DC Tamsulosin HCl (Flomax) 0.4 mg DAILY PO Last administered on 03/05/17 08:13; Start 02/21/17 at 09:00 Insulin Detemir (Levemir) 20 units QHS SQ Last administered on 02/21/17 20:51 ; Start 02/21/17 at 21:00; Stop 02/22/17 at 13:09; Status DC Tramadol HCl (Ultram) 50 mg PRN Q8HRS PRN PO PAIN Last administered on 21:56; Start 02/22/17 at 07:30 Glucose (Insta-Glucose) 15 gm PRN Q15MIN PRN PO LOW BLOOD SUGAR Last administered on 02/22/17 08:06; Start 02/22/17 at 08:00 Acetaminophen (Tylenol) 650 mg Q8HRS PO Last administered on 03/05/17 13:29; Start 02/22/17 at 14:00 Pantoprazole Sodium (Protonix) 40 mg DAILYAC PO Last administered on 08:13; Start 02/23/17 at 07:30 Vitamin D (Vitamin D3) 2,000 unit DAILY PO Last administered on 03/05/17 08: 12; Start 02/23/17 at 09:00 Insulin Detemir (Levemir) 10 units QHS SQ Last administered on 02/22/17 19:54 ; Start 02/22/17 at 21:00; Stop 02/23/17 at 11:02; Status DC Loperamide HCl (Imodium) 2 mg PRN Q15MIN PRN PO DIARRHEA Last administered on 02/22/17 17:30; Start 02/22/17 at 16:30 Quetiapine Fumarate (SEROquel) 12.5 mg [id number] PO Last administered on 13:29; Start 02/23/17 at 09:00; Stop 03/05/17 at 16:44; Status DC Lorazepam (Ativan) 0.25 mg DAILY PO Last administered on 02/23/17 07:52; Start 02/23/17 at 09:00; Stop 02/23/17 at 09:01; Status DC Lorazepam (Ativan) 0.5 mg BID@1400,2100 PO Last administered on 02/23/17 19: 54; Start 02/23/17 at 14:00; Stop 02/23/17 at 21:01; Status DC Lorazepam (Ativan) 0.25 mg BID@0900,1400 PO Last administered on 02/24/17 13: 59; Start 02/24/17 at 09:00; Stop 02/24/17 at 14:01; Status DC Lorazepam (Ativan) 0.5 mg HS PO Last administered on 02/24/17 20:27; Start 02/24/17 at 21:00; Stop 02/24/17 at 21:01; Status DC Lorazepam (Ativan) 0.25 mg TID PO Last administered on 02/25/17 20:19; Start 02/25/17 at 09:00; Stop 02/25/17 at 21:01; Status DC Lorazepam (Ativan) 0.25 mg BID PO Last administered on 02/26/17 20:19; Start 02/26/17 at 09:00; Stop 02/26/17 at 21:01; Status DC Lorazepam (Ativan) 0.25 mg DAILY PO Last administered on 02/27/17 08:32; Start 02/27/17 at 09:00; Stop 02/27/17 at 09:01; Status DC Insulin Detemir (Levemir) 5 units QHS SQ Last administered on 03/04/17 19:56 ; Start 02/23/17 at 21:00 Quetiapine Fumarate (SEROquel) 12.5 mg DAILYWSUP PO Last administered on 16:20; Start 02/24/17 at 17:00; Stop 03/05/17 at 16:44; Status DC Duloxetine HCl (Cymbalta) 30 mg DAILY PO Last administered on 02/28/17 08:15 ; Start 02/26/17 at 09:00; Stop 03/01/17 at 08:59; Status DC Duloxetine HCl (Cymbalta) 60 mg DAILY PO Last administered on 03/05/17 08:14 ; Start 03/01/17 at 09:00 Divalproex Sodium (Depakote) 125 mg [id number] PO Last administered on 03/03/17 08 :21; Start 02/28/17 at 09:00; Stop 03/03/17 at 13:07; Status DC Lidocaine (Lidoderm) 1 patch DAILY TD Last administered on 03/05/17 08:25; Start 03/02/17 at 12:30 Amoxicillin/ Clavulanate Potassium (Augmentin 500/ 125mg) 1 tab BID PO Last administered on 03/04/17 08:44; Start 03/02/17 at 21:00; Stop 03/04/17 at 18 :40; Status DC Divalproex Sodium (Depakote) 125 mg TID PO Last administered on 03/05/17 13: 29; Start 03/03/17 at 14:00 Nitrofurantoin Macrocrystals (Macrobid) 100 mg BID PO Last administered on 08:12; Start 03/04/17 at 21:00; Stop 03/05/17 at 13:04; Status DC Amoxicillin/ Clavulanate Potassium (Augmentin 500/ 125mg) 1 tab BID PO ; Start 03/05/17 at 21:00; Stop 03/05/17 at 21:00; Status DC Ciprofloxacin (Cipro) 500 mg Q18H PO Last administered on 03/05/17 14:35; Start 03/05/17 at 14:30 Quetiapine Fumarate (SEROquel) 12.5 mg [id number] PO ; Start 03/05/17 at 17:00 Active Scripts Active Reported Zofran (Ondansetron Hcl) 4 Mg Tablet 4 Mg PO TIDAC Voltaren (Diclofenac Sodium) 100 Gm Gel..gram. 1 Mario TP BID Trazodone Hcl 50 Mg Tablet 50 Mg PO QHS Tradjenta (Linagliptin) 5 Mg Tablet 5 Mg PO DAILY Tamsulosin Hcl 0.4 Mg Cap.er.24h 0.4 Mg PO DAILY Questran Packet (Cholestyramine (With Sugar)) 4 Gm Powd.pack 1 Packet PO BID Protonix (Pantoprazole Sodium) 20 Mg Tablet.dr 20 Mg PO DAILY Klor-Con M20 (Potassium Chloride) 20 Meq Tab.er.prt 20 Meq PO BID Namenda Xr (Memantine Hcl) 14 Mg Cap.spr.24 14 Mg PO QHS Alum-Mag Hydroxide-Simeth Liq (Mag Hydrox/Al Hydrox/Simeth) 360 Ml Oral.susp 30 Ml PO PRN Q6HRS PRN Magnesium Oxide 400 Mg Tablet 400 Mg PO BID Loperamide (Loperamide Hcl) 2 Mg Tablet 2 Tab PO PRN PRN Loperamide (Loperamide Hcl) 2 Mg Tablet 2 Mg PO PRN PRN Lisinopril 10 Mg Tablet 10 Mg PO DAILY Lantus Solostar (Insulin Glargine,Hum.rec.anlog) 100 Unit/1 Ml Insuln.pen 20 Unit SQ DAILY Lactaid (Lactase) 3,000 Unit Tablet 3,000 Unit PO PRN PRN Ferrous Sulfate 325 Mg Tablet 325 Mg PO DAILY Demeclocycline Hcl 300 Mg Tablet 300 Mg PO BID Vitamin D3 (Cholecalciferol (Vitamin D3)) 1,000 Unit Tablet 1,000 Unit PO DAILY Cefdinir 300 Mg Capsule 300 Mg PO BID Ativan (Lorazepam) 0.5 Mg Tablet 0.5 Mg PO TID Ativan (Lorazepam) 0.5 Mg Tablet 0.5 Mg PO PRN TID PRN Aricept (Donepezil Hcl) 5 Mg Tablet 5 Mg PO QHS Analpram Hc 2.5%-1% Lotion (Hydrocortisone/Pramoxine) 59 Ml Lotion 1 Mario [place] PRN TID PRN Acidophilus (Lactobacillus Acidophilus) 1 Each Tablet 1 Cap PO TID Tylenol (Acetaminophen) 325 Mg Tablet 325 Mg PO PRN Q4HRS PRN I have reviewed the current psychotropics carefully including drug interactions. Risk benefit ratio favors no change other than as noted in my dictated progress note. Diagnosis: Problems: (1) Hyponatremia (2) Dementia (3) Depression (4) Agitation KAMRON MENDEZ MD Mar 05, 2017 20:05
[2017-03-05] MEDS: traZODone 50 MG TABLET. PO SCH (20:20)
[2017-03-05] MEDS: DONEPEZIL HCL 5 MG TABLET. PO SCH (20:20)
[2017-03-05] MEDS: INSULIN DETEMIR 300 UNITS/3 ML INSULN.PEN. SQ SCH (20:24)
[2017-03-05] MEDS: traMADol 50 MG TABLET PO PRN (20:34)
[2017-03-05] MEDS ORDERED: AMOXICILLIN/K CLAV 500/125MG TABLET. PO SCH (21:00)
--- NOTE | 2017-03-06 05:18 | PN ---
DATE: 03/04/2017 PSYCHIATRIC PROGRESS NOTE This is a late entry for 03/04/2017, covers elements not covered in my initial note of 03/04/2017. SUBJECTIVE: I met with the patient the evening of 03/04/2017 in her room. She remains somatically preoccupied, complaining of GI pain all day. Abdominal CT was done. We will defer to Dr. Terrell/Dr. Kim with some suggestions of scarring. She does have recurrent UTI. Sensitivity has predicated a change to Macrobid. REVIEW OF SYSTEMS: No CV, , pulmonary, eye system symptoms on review. GI symptoms as noted. MENTAL STATUS EXAM: Oriented to herself. Insight, judgment, recent and remote memory, attention, concentration, fund of knowledge poor, consistent with her diagnosis mentioned in my initial note along with UTI. PLAN: Treat the UTI. Maintain current psychotropics. Aricept, Ativan being tapered. Namenda, trazodone, Seroquel, Cymbalta being increased. Depakote at current dosage. Adjust further as clinically indicated. Check valproic acid level on 03/06/2017 and adjust thereafter. MAN Arabella MENDEZ MD DR: MERLIN/sabrina JOB#: [id number] / [id number]
[2017-03-06] MEDS: ACETAMINOPHEN 325 MG TABLET PO SCH ×3 (06:07→20:29)
[2017-03-06 06:26] VITALS: BP 126/87
[2017-03-06] MEDS: LIDOCAINE (700MG/PATCH) PATCH. TD SCH (08:55)
[2017-03-06] MEDS: CHOLESTYRAMINE/ASPARTAME 4 GM PACKET PO SCH ×2 (08:55→20:30)
[2017-03-06] MEDS: PANTOPRAZOLE 40 MG TABLET. PO SCH (08:55)
[2017-03-06] MEDS: DIVALPROEX SODIUM 125 MG TABLET.DR. PO SCH ×2 (08:56→13:31)
[2017-03-06] MEDS: LISINOPRIL 10 MG TABLET PO SCH (08:56)
[2017-03-06] MEDS: FERROUS SULFATE 325 MG TABLET. PO SCH (08:56)
[2017-03-06] MEDS: TAMSULOSIN 0.4 MG CAP.ER.24H. PO SCH (08:56)
[2017-03-06] MEDS: QUEtiapine 25 MG TABLET. PO SCH ×4 (08:56→20:30)
[2017-03-06] MEDS: CHOLECALCIFEROL (VITAMIN D3) 1,000 UNIT TABLET PO SCH (08:56)
[2017-03-06] MEDS: LACTOBACILLUS RHAMNOSUS GG 1 CAPSULE. PO SCH ×3 (08:56→20:29)
[2017-03-06] MEDS: LINAGLIPTIN 5 MG TABLET PO SCH (08:57)
[2017-03-06] MEDS: POTASSIUM CHLORIDE 20 MEQ TABLET.ER. PO SCH ×2 (08:57→17:21)
[2017-03-06] MEDS: LACTASE 3,000 UNIT TABLET PO PRN ×2 (08:57→17:21)
[2017-03-06] MEDS: MEMANTINE 5 MG TABLET. PO SCH ×2 (08:57→20:30)
[2017-03-06] MEDS: MAGNESIUM OXIDE 400 MG TABLET PO SCH ×2 (08:57→20:30)
[2017-03-06] MEDS: DULoxetine HCL 60 MG CAPSULE.DR PO SCH (08:57)
[2017-03-06] MEDS: DEMECLOCYCLINE HCL 150 MG TABLET PO SCH ×2 (09:00→20:32)
[2017-03-06] MEDS: traMADol 50 MG TABLET PO PRN ×2 (09:00→17:21)
[2017-03-06] MEDS: CIPROFLOXACIN HCL 500 MG TABLET PO SCH ×2 (09:00→20:29)
[2017-03-06 09:35] LABS: BASO % 0 % (0-3); EOS % 1 % (0-3); HEMATOCRIT 30.6 % (36.0-47.0); HEMOGLOBIN 10.9 g/dL (12.0-15.5); LYMPH % 18 % (24-48); MEAN CORPUSCULAR HEMOGLOBIN 35 pg (25-35); MEAN CORPUSCULAR HGB CONC 36 g/dL (31-37); MEAN CORPUSCULAR VOLUME 99 fL (79-100); MONO # 0.3 x10^3/uL (0.0-1.1); MONO % 6 % (0-9); NEUT # 4.2 x10^3uL (1.8-7.7); NEUT % 75 % (31-73); PLATELET COUNT 194 x10^3/uL (140-400); RED BLOOD COUNT 3.09 x10^6/uL (3.50-5.40); RED CELL DISTRIBUTION WIDTH 12.9 % (11.5-14.5); WHITE BLOOD COUNT 5.5 x10^3/uL (4.0-11.0)
[2017-03-06 10:02] LABS: ALBUMIN 3.2 g/dL (3.4-5.0); ALK PHOS 89 U/L (46-116); ALT (SGPT) 42 U/L (14-59); ANION GAP 8 (6-14); AST (SGOT) 27 U/L (15-37); BLOOD UREA NITROGEN 13 mg/dL (7-20); BUN/CREATININE RATIO 12 (6-20); CALCIUM 8.8 mg/dL (8.5-10.1); CARBON DIOXIDE 24 mmol/L (21-32); CHLORIDE 95 mmol/L (98-107); CREATININE 1.1 mg/dL (0.6-1.0); GFR 47.7; GLUCOSE 120 mg/dL (70-99); POTASSIUM 4.9 mmol/L (3.5-5.1); SODIUM 127 mmol/L (136-145); TOTAL BILIRUBIN 0.3 mg/dL (0.2-1.0); TOTAL PROTEIN 6.5 g/dL (6.4-8.2)
[2017-03-06 10:03] LABS: VAL ACID 42 mcg/mL (50-100)
[2017-03-06 15:32] VITALS: BP 113/66
--- NOTE | 2017-03-06 20:07 | PDOC ---
Exam Note: Fernando Note: Please also refer to the separate dictated note~for this date of service dictated separately.~Patient seen individually. Discussed the patient with Nursing staff reviewed the chart.~Reviewed interim history and current functioning. Reviewed vital signs,~Labs/ Radiology~and current medications noted below. Continue current treatment with the changes noted in the dictated addendum note Assessment: Vital Signs: Vital Signs Date Time Temp Pulse Resp B/P (MAP) Pulse Ox O2 Delivery O2 Flow Rate FiO2 03/06/17 15:32 97.8 80 20 113/66 (82) 100 03/05/17 21:34 Room Air I&O Intake and Output 03/06/17 07:00 Intake Total 1200 ml Balance 1200 ml Intake Oral 1200 ml # Voids 1 # Bowel Movements 1 Labs: Laboratory Tests Test 03/06/17 08:18 03/06/17 09:14 03/06/17 11:19 03/06/17 16:07 Glucose (Fingerstick) 90 mg/dL (70-99) 125 mg/dL (70-99) H 111 mg/dL (70-99) H White Blood Count 5.5 x10^3/uL (4.0-11.0) Red Blood Count 3.09 x10^6/uL (3.50-5.40) L Hemoglobin 10.9 g/dL (12.0-15.5) L Hematocrit 30.6 % (36.0-47.0) L Mean Corpuscular Volume 99 fL (79-100) Mean Corpuscular Hemoglobin 35 pg (25-35) Mean Corpuscular Hemoglobin Concent 36 g/dL (31-37) Red Cell Distribution Width 12.9 % (11.5-14.5) Platelet Count 194 x10^3/uL (140-400) Neutrophils (%) (Auto) 75 % (31-73) H Lymphocytes (%) (Auto) 18 % (24-48) L Monocytes (%) (Auto) 6 % (0-9) Eosinophils (%) (Auto) 1 % (0-3) Basophils (%) (Auto) 0 % (0-3) Neutrophils # (Auto) 4.2 x10^3uL (1.8-7.7) Lymphocytes # (Auto) 1.0 x10^3/uL (1.0-4.8) Monocytes # (Auto) 0.3 x10^3/uL (0.0-1.1) Eosinophils # (Auto) 0.0 x10^3/uL (0.0-0.7) Basophils # (Auto) 0.0 x10^3/uL (0.0-0.2) Sodium Level 127 mmol/L (136-145) L Potassium Level 4.9 mmol/L (3.5-5.1) Chloride Level 95 mmol/L (98-107) L Carbon Dioxide Level 24 mmol/L (21-32) Anion Gap 8 (6-14) Blood Urea Nitrogen 13 mg/dL (7-20) Creatinine 1.1 mg/dL (0.6-1.0) H Estimated GFR (Cockcroft-Gault) 47.7 BUN/Creatinine Ratio 12 (6-20) Glucose Level 120 mg/dL (70-99) H Calcium Level 8.8 mg/dL (8.5-10.1) Magnesium Level 1.8 mg/dL (1.8-2.4) Total Bilirubin 0.3 mg/dL (0.2-1.0) Aspartate Amino Transferase (AST) 27 U/L (15-37) Alanine Aminotransferase (ALT) 42 U/L (14-59) Alkaline Phosphatase 89 U/L (46-116) Total Protein 6.5 g/dL (6.4-8.2) Albumin 3.2 g/dL (3.4-5.0) L Albumin/Globulin Ratio 1.0 (1.0-1.7) Valproic Acid Level 42 mcg/mL (50-100) L Valproic Acid Last Dose Date 03/05/17 Valproic Acid Last Dose Time 2100 Test 03/06/17 19:23 Glucose (Fingerstick) 103 mg/dL (70-99) H Current Medications: Meds: Current Medications Sodium Chloride 1,000 ml @ 1,000 mls/hr 1X ONCE IV Last administered on 02/20t 21:15; Start 02/20/17 at 21:15; Stop 02/20/17 at 22:14; Status DC Acetaminophen (Tylenol) 650 mg PRN Q6HRS PRN PO PAIN / TEMP; Start 02/20/17 at 22:15; Stop 02/21/17 at 07:13; Status DC Multi-Ingredient Ointment (Analgesic [place]) 1 mairo PRN QID PRN TP MUSCLE PAIN; Start 02/20/17 at 22:15 Al Hydroxide/Mg Hydroxide (Mylanta Plus Xs) 15 ml PRN AFTMEALHC PRN PO DYSPEPSIA Last administered on 03/05/17 16:23; Start 02/20/17 at 22:15 Magnesium Hydroxide (Milk Of Magnesia) 2,400 mg PRN QHS PRN PO CONSTIPATION; Start 02/20/17 at 22:15 Donepezil HCl (Aricept) 5 mg QHS PO Last administered on 03/05/17 20:20; Start 02/20/17 at 23:30 Lorazepam (Ativan) 0.5 mg PRN TID PRN PO ANXIETY / AGITATION; Start 02/20/17 at 22:30 Lorazepam (Ativan) 0.5 mg TID PO Last administered on 02/22/17 19:51; Start 02/20/17 at 23:30; Stop 02/22/17 at 23:29; Status DC Trazodone HCl (Desyrel) 50 mg QHS PO Last administered on 03/05/17 20:20; Start 02/20/17 at 23:30 Memantine (Namenda) 5 mg BID PO Last administered on 03/06/17 08:57; Start 02/20/17 at 23:30 Cholestyramine Resin (Questran Light) 4 gm BID PO Last administered on 08:55; Start 02/21/17 at 09:00 Diclofenac Sodium (Voltaren) 1 mario BID TP Last administered on 02/28/17 20:37 ; Start 02/21/17 at 09:00; Stop 03/01/17 at 14:35; Status DC Magnesium Oxide (Magnesium Oxide) 400 mg BID PO Last administered on 08:57; Start 02/21/17 at 09:00 Potassium Chloride (Klor-Con) 20 meq BIDWMEALS PO Last administered on 17:21; Start 02/21/17 at 08:00 Cefpodoxime Proxetil (Vantin) 100 mg BID PO Last administered on 02/21/17 20: 48; Start 02/21/17 at 10:15; Stop 02/21/17 at 21:01; Status DC Demeclocycline HCl (Declomycin) 300 mg BID PO Last administered on 03/06/17 09:00; Start 02/20/17 at 23:30 Lactobacillus Rhamnosus (Culturelle) 1 cap TID PO Last administered on 13:31; Start 02/20/17 at 23:30 Acetaminophen (Tylenol) 325 mg PRN Q4HRS PRN PO PAIN / TEMP Last administered on 02/22/17 06:27; Start 02/21/17 at 06:45; Stop 02/22/17 at 11:14; Status DC Vitamin D (Vitamin D3) 1,000 unit DAILY PO Last administered on 02/22/17 07: 37; Start 02/21/17 at 09:00; Stop 02/22/17 at 13:09; Status DC Ferrous Sulfate (Feosol) 325 mg DAILY PO Last administered on 03/06/17 08:56 ; Start 02/21/17 at 09:00 Lactase (Lactaid) 3,000 unit TIDAC PRN PO Lactose Intolerance Last administered on 03/06/17 17:21; Start 02/21/17 at 06:45 Linagliptin (Tradjenta) 5 mg DAILY PO Last administered on 03/06/17 08:57; Start 02/21/17 at 09:00 Lisinopril (Prinivil) 10 mg DAILY PO Last administered on 03/06/17 08:56; Start 02/21/17 at 09:00 Pantoprazole Sodium (Protonix) 20 mg DAILY PO Last administered on 02/22/17 07:37; Start 02/21/17 at 09:00; Stop 02/22/17 at 11:14; Status DC Tamsulosin HCl (Flomax) 0.4 mg DAILY PO Last administered on 03/06/17 08:56; Start 02/21/17 at 09:00 Insulin Detemir (Levemir) 20 units QHS SQ Last administered on 02/21/17 20:51 ; Start 02/21/17 at 21:00; Stop 02/22/17 at 13:09; Status DC Tramadol HCl (Ultram) 50 mg PRN Q8HRS PRN PO PAIN Last administered on 17:21; Start 02/22/17 at 07:30 Glucose (Insta-Glucose) 15 gm PRN Q15MIN PRN PO LOW BLOOD SUGAR Last administered on 02/22/17 08:06; Start 02/22/17 at 08:00 Acetaminophen (Tylenol) 650 mg Q8HRS PO Last administered on 03/06/17 13:32; Start 02/22/17 at 14:00 Pantoprazole Sodium (Protonix) 40 mg DAILYAC PO Last administered on 08:55; Start 02/23/17 at 07:30 Vitamin D (Vitamin D3) 2,000 unit DAILY PO Last administered on 03/06/17 08: 56; Start 02/23/17 at 09:00 Insulin Detemir (Levemir) 10 units QHS SQ Last administered on 02/22/17 19:54 ; Start 02/22/17 at 21:00; Stop 02/23/17 at 11:02; Status DC Loperamide HCl (Imodium) 2 mg PRN Q15MIN PRN PO DIARRHEA Last administered on 02/22/17 17:30; Start 02/22/17 at 16:30 Quetiapine Fumarate (SEROquel) 12.5 mg [id number] PO Last administered on 13:29; Start 02/23/17 at 09:00; Stop 03/05/17 at 16:44; Status DC Lorazepam (Ativan) 0.25 mg DAILY PO Last administered on 02/23/17 07:52; Start 02/23/17 at 09:00; Stop 02/23/17 at 09:01; Status DC Lorazepam (Ativan) 0.5 mg BID@1400,2100 PO Last administered on 02/23/17 19: 54; Start 02/23/17 at 14:00; Stop 02/23/17 at 21:01; Status DC Lorazepam (Ativan) 0.25 mg BID@0900,1400 PO Last administered on 02/24/17 13: 59; Start 02/24/17 at 09:00; Stop 02/24/17 at 14:01; Status DC Lorazepam (Ativan) 0.5 mg HS PO Last administered on 02/24/17 20:27; Start 02/24/17 at 21:00; Stop 02/24/17 at 21:01; Status DC Lorazepam (Ativan) 0.25 mg TID PO Last administered on 02/25/17 20:19; Start 02/25/17 at 09:00; Stop 02/25/17 at 21:01; Status DC Lorazepam (Ativan) 0.25 mg BID PO Last administered on 02/26/17 20:19; Start 02/26/17 at 09:00; Stop 02/26/17 at 21:01; Status DC Lorazepam (Ativan) 0.25 mg DAILY PO Last administered on 02/27/17 08:32; Start 02/27/17 at 09:00; Stop 02/27/17 at 09:01; Status DC Insulin Detemir (Levemir) 5 units QHS SQ Last administered on 03/05/17 20:24 ; Start 02/23/17 at 21:00 Quetiapine Fumarate (SEROquel) 12.5 mg DAILYWSUP PO Last administered on 16:20; Start 02/24/17 at 17:00; Stop 03/05/17 at 16:44; Status DC Duloxetine HCl (Cymbalta) 30 mg DAILY PO Last administered on 02/28/17 08:15 ; Start 02/26/17 at 09:00; Stop 03/01/17 at 08:59; Status DC Duloxetine HCl (Cymbalta) 60 mg DAILY PO Last administered on 03/06/17 08:57 ; Start 03/01/17 at 09:00 Divalproex Sodium (Depakote) 125 mg [id number] PO Last administered on 03/03/17 08 :21; Start 02/28/17 at 09:00; Stop 03/03/17 at 13:07; Status DC Lidocaine (Lidoderm) 1 patch DAILY TD Last administered on 03/06/17 08:55; Start 03/02/17 at 12:30 Amoxicillin/ Clavulanate Potassium (Augmentin 500/ 125mg) 1 tab BID PO Last administered on 03/04/17 08:44; Start 03/02/17 at 21:00; Stop 03/04/17 at 18 :40; Status DC Divalproex Sodium (Depakote) 125 mg TID PO Last administered on 03/06/17 13: 31; Start 03/03/17 at 14:00; Stop 03/06/17 at 18:33; Status DC Nitrofurantoin Macrocrystals (Macrobid) 100 mg BID PO Last administered on 08:12; Start 03/04/17 at 21:00; Stop 03/05/17 at 13:04; Status DC Amoxicillin/ Clavulanate Potassium (Augmentin 500/ 125mg) 1 tab BID PO ; Start 03/05/17 at 21:00; Stop 03/05/17 at 21:00; Status DC Ciprofloxacin (Cipro) 500 mg Q18H PO Last administered on 03/06/17 09:00; Start 03/05/17 at 14:30 Quetiapine Fumarate (SEROquel) 12.5 mg [id number] PO Last administered on 17:21; Start 03/05/17 at 17:00 Divalproex Sodium (Depakote) 125 mg DAILY@1400 PO ; Start 03/07/17 at 14:00 Divalproex Sodium (Depakote Sprinkles) 250 mg BID PO ; Start 03/06/17 at 21:00 Active Scripts Active Reported Zofran (Ondansetron Hcl) 4 Mg Tablet 4 Mg PO TIDAC Voltaren (Diclofenac Sodium) 100 Gm Gel..gram. 1 Mario TP BID Trazodone Hcl 50 Mg Tablet 50 Mg PO QHS Tradjenta (Linagliptin) 5 Mg Tablet 5 Mg PO DAILY Tamsulosin Hcl 0.4 Mg Cap.er.24h 0.4 Mg PO DAILY Questran Packet (Cholestyramine (With Sugar)) 4 Gm Powd.pack 1 Packet PO BID Protonix (Pantoprazole Sodium) 20 Mg Tablet.dr 20 Mg PO DAILY Klor-Con M20 (Potassium Chloride) 20 Meq Tab.er.prt 20 Meq PO BID Namenda Xr (Memantine Hcl) 14 Mg Cap.spr.24 14 Mg PO QHS Alum-Mag Hydroxide-Simeth Liq (Mag Hydrox/Al Hydrox/Simeth) 360 Ml Oral.susp 30 Ml PO PRN Q6HRS PRN Magnesium Oxide 400 Mg Tablet 400 Mg PO BID Loperamide (Loperamide Hcl) 2 Mg Tablet 2 Tab PO PRN PRN Loperamide (Loperamide Hcl) 2 Mg Tablet 2 Mg PO PRN PRN Lisinopril 10 Mg Tablet 10 Mg PO DAILY Lantus Solostar (Insulin Glargine,Hum.rec.anlog) 100 Unit/1 Ml Insuln.pen 20 Unit SQ DAILY Lactaid (Lactase) 3,000 Unit Tablet 3,000 Unit PO PRN PRN Ferrous Sulfate 325 Mg Tablet 325 Mg PO DAILY Demeclocycline Hcl 300 Mg Tablet 300 Mg PO BID Vitamin D3 (Cholecalciferol (Vitamin D3)) 1,000 Unit Tablet 1,000 Unit PO DAILY Cefdinir 300 Mg Capsule 300 Mg PO BID Ativan (Lorazepam) 0.5 Mg Tablet 0.5 Mg PO TID Ativan (Lorazepam) 0.5 Mg Tablet 0.5 Mg PO PRN TID PRN Aricept (Donepezil Hcl) 5 Mg Tablet 5 Mg PO QHS Analpram Hc 2.5%-1% Lotion (Hydrocortisone/Pramoxine) 59 Ml Lotion 1 Mario ND PRN TID PRN Acidophilus (Lactobacillus Acidophilus) 1 Each Tablet 1 Cap PO TID Tylenol (Acetaminophen) 325 Mg Tablet 325 Mg PO PRN Q4HRS PRN I have reviewed the current psychotropics carefully including drug interactions. Risk benefit ratio favors no change other than as noted in my dictated progress note. Diagnosis: Problems: (1) Hyponatremia (2) Dementia (3) Depression (4) Agitation KAMRON MENDEZ MD Mar 06, 2017 20:07
[2017-03-06] MEDS: DONEPEZIL HCL 5 MG TABLET. PO SCH (20:29)
[2017-03-06] MEDS: traZODone 50 MG TABLET. PO SCH (20:30)
[2017-03-06] MEDS: DIVALPROEX 125 MG CAP.SPRINK PO SCH (20:32)
[2017-03-06] MEDS: INSULIN DETEMIR 300 UNITS/3 ML INSULN.PEN. SQ SCH (20:33)
[2017-03-07] MEDS: ACETAMINOPHEN 325 MG TABLET PO SCH ×3 (05:00→21:03)
[2017-03-07 06:00] VITALS: BP 137/71
[2017-03-07] MEDS: LACTOBACILLUS RHAMNOSUS GG 1 CAPSULE. PO SCH ×2 (09:20→13:03)
[2017-03-07] MEDS: MEMANTINE 5 MG TABLET. PO SCH ×2 (09:20→20:58)
[2017-03-07] MEDS: TAMSULOSIN 0.4 MG CAP.ER.24H. PO SCH (09:20)
[2017-03-07] MEDS: DIVALPROEX 125 MG CAP.SPRINK PO SCH ×2 (09:20→20:58)
[2017-03-07] MEDS: PANTOPRAZOLE 40 MG TABLET. PO SCH (09:21)
[2017-03-07] MEDS: POTASSIUM CHLORIDE 20 MEQ TABLET.ER. PO SCH ×2 (09:21→17:38)
[2017-03-07] MEDS: LISINOPRIL 10 MG TABLET PO SCH (09:21)
[2017-03-07] MEDS: LACTASE 3,000 UNIT TABLET PO PRN (09:21)
[2017-03-07] MEDS: DULoxetine HCL 60 MG CAPSULE.DR PO SCH (09:21)
[2017-03-07] MEDS: LINAGLIPTIN 5 MG TABLET PO SCH (09:21)
[2017-03-07] MEDS: FERROUS SULFATE 325 MG TABLET. PO SCH (09:21)
[2017-03-07] MEDS: MAGNESIUM OXIDE 400 MG TABLET PO SCH ×2 (09:21→20:58)
[2017-03-07] MEDS: CHOLESTYRAMINE/ASPARTAME 4 GM PACKET PO SCH ×2 (09:22→20:58)
[2017-03-07] MEDS: CHOLECALCIFEROL (VITAMIN D3) 1,000 UNIT TABLET PO SCH (09:22)
[2017-03-07] MEDS: LIDOCAINE (700MG/PATCH) PATCH. TD SCH (09:22)
[2017-03-07] MEDS: QUEtiapine 25 MG TABLET. PO SCH ×4 (09:23→20:58)
[2017-03-07] MEDS: DEMECLOCYCLINE HCL 150 MG TABLET PO SCH ×2 (09:23→20:59)
--- NOTE | 2017-03-07 10:26 | PN ---
DATE: 03/05/2017 This is a late entry 03/05/2017, covers elements not covered in my initial note 03/05/2017. SUBJECTIVE: I met with the patient the evening of 03/05/2017. The patient remains somatically preoccupied with GI symptoms. She does have a hiatal hernia on abdominal CT and I will defer to Dr. Kim. She has been coming out more to the day room, which in itself is an improvement, less yelling, not putting herself on the floor. REVIEW OF SYSTEMS: No CV, , pulmonary, eye, ENT system symptoms on review. Reliability poor. MENTAL STATUS EXAM: Oriented to herself. Insight, judgment, recent and remote memory, attention, concentration, fund of knowledge poor, consistent with her diagnoses mentioned in my initial note. PLAN: Continue current psychotropics including the Cymbalta, Depakote, trazodone, Seroquel, Ativan p.r.n., scheduled Ativan is being tapered, Aricept and Namenda. KAMRON MENDEZ MD DR: MERLIN/sabrina JOB#: [id number] / [id number]
[2017-03-07] MEDS ORDERED: DIVALPROEX SODIUM 125 MG TABLET.DR. PO SCH (14:00)
[2017-03-07 15:58] VITALS: BP 135/72
[2017-03-07] MEDS: traMADol 50 MG TABLET PO PRN (17:37)
[2017-03-07] MEDS ORDERED: LACTASE 3,000 UNIT TABLET PO PRN (18:45)
--- NOTE | 2017-03-07 20:04 | PDOC ---
Exam Note: Fernando Note: Please also refer to the separate dictated note~for this date of service dictated separately.~Patient seen individually. Discussed the patient with Nursing staff reviewed the chart.~Reviewed interim history and current functioning. Reviewed vital signs,~Labs/ Radiology~and current medications noted below. Continue current treatment with the changes noted in the dictated addendum note Assessment: Vital Signs: Vital Signs Date Time Temp Pulse Resp B/P (MAP) Pulse Ox O2 Delivery O2 Flow Rate FiO2 03/07/17 15:58 98.1 77 18 135/72 (93) 99 Room Air I&O Intake and Output 03/07/17 07:00 Intake Total 720 ml Balance 720 ml Intake Oral 720 ml Labs: Laboratory Tests Test 03/07/17 07:11 03/07/17 11:54 03/07/17 16:55 03/07/17 19:12 Glucose (Fingerstick) 84 mg/dL (70-99) 93 mg/dL (70-99) 88 mg/dL (70-99) 122 mg/dL (70-99) H Current Medications: Meds: Current Medications Sodium Chloride 1,000 ml @ 1,000 mls/hr 1X ONCE IV Last administered on 02/20 21:15; Start 02/20/17 at 21:15; Stop 02/20/17 at 22:14; Status DC Acetaminophen (Tylenol) 650 mg PRN Q6HRS PRN PO PAIN / TEMP; Start 02/20/17 at 22:15; Stop 02/21/17 at 07:13; Status DC Multi-Ingredient Ointment (Analgesic [place]) 1 mario PRN QID PRN TP MUSCLE PAIN; Start 02/20/17 at 22:15 Al Hydroxide/Mg Hydroxide (Mylanta Plus Xs) 15 ml PRN AFTMEALHC PRN PO DYSPEPSIA Last administered on 03/05/17 16:23; Start 02/20/17 at 22:15 Magnesium Hydroxide (Milk Of Magnesia) 2,400 mg PRN QHS PRN PO CONSTIPATION; Start 02/20/17 at 22:15 Donepezil HCl (Aricept) 5 mg QHS PO Last administered on 03/06/17 20:29; Start 02/20/17 at 23:30 Lorazepam (Ativan) 0.5 mg PRN TID PRN PO ANXIETY / AGITATION; Start 02/20/17 at 22:30 Lorazepam (Ativan) 0.5 mg TID PO Last administered on 02/22/17 19:51; Start 02/20/17 at 23:30; Stop 02/22/17 at 23:29; Status DC Trazodone HCl (Desyrel) 50 mg QHS PO Last administered on 03/06/17 20:30; Start 02/20/17 at 23:30 Memantine (Namenda) 5 mg BID PO Last administered on 03/07/17 09:20; Start 02/20/17 at 23:30 Cholestyramine Resin (Questran Light) 4 gm BID PO Last administered on 09:22; Start 02/21/17 at 09:00 Diclofenac Sodium (Voltaren) 1 mario BID TP Last administered on 02/28/17 20:37 ; Start 02/21/17 at 09:00; Stop 03/01/17 at 14:35; Status DC Magnesium Oxide (Magnesium Oxide) 400 mg BID PO Last administered on 09:21; Start 02/21/17 at 09:00 Potassium Chloride (Klor-Con) 20 meq BIDWMEALS PO Last administered on 17:38; Start 02/21/17 at 08:00 Cefpodoxime Proxetil (Vantin) 100 mg BID PO Last administered on 02/21/17 20: 48; Start 02/21/17 at 10:15; Stop 02/21/17 at 21:01; Status DC Demeclocycline HCl (Declomycin) 300 mg BID PO Last administered on 03/07/17 09:23; Start 02/20/17 at 23:30 Lactobacillus Rhamnosus (Culturelle) 1 cap TID PO Last administered on 13:03; Start 02/20/17 at 23:30; Stop 03/07/17 at 18:32; Status DC Acetaminophen (Tylenol) 325 mg PRN Q4HRS PRN PO PAIN / TEMP Last administered on 02/22/17 06:27; Start 02/21/17 at 06:45; Stop 02/22/17 at 11:14; Status DC Vitamin D (Vitamin D3) 1,000 unit DAILY PO Last administered on 02/22/17 07: 37; Start 02/21/17 at 09:00; Stop 02/22/17 at 13:09; Status DC Ferrous Sulfate (Feosol) 325 mg DAILY PO Last administered on 03/07/17 09:21 ; Start 02/21/17 at 09:00 Lactase (Lactaid) 3,000 unit TIDAC PRN PO Lactose Intolerance Last administered on 03/07/17 09:21; Start 02/21/17 at 06:45; Stop 03/07/17 at 18 :29; Status DC Linagliptin (Tradjenta) 5 mg DAILY PO Last administered on 03/07/17 09:21; Start 02/21/17 at 09:00 Lisinopril (Prinivil) 10 mg DAILY PO Last administered on 03/07/17 09:21; Start 02/21/17 at 09:00 Pantoprazole Sodium (Protonix) 20 mg DAILY PO Last administered on 02/22/17 07:37; Start 02/21/17 at 09:00; Stop 02/22/17 at 11:14; Status DC Tamsulosin HCl (Flomax) 0.4 mg DAILY PO Last administered on 03/07/17 09:20; Start 02/21/17 at 09:00 Insulin Detemir (Levemir) 20 units QHS SQ Last administered on 02/21/17 20:51 ; Start 02/21/17 at 21:00; Stop 02/22/17 at 13:09; Status DC Tramadol HCl (Ultram) 50 mg PRN Q8HRS PRN PO PAIN Last administered on 17:37; Start 02/22/17 at 07:30 Glucose (Insta-Glucose) 15 gm PRN Q15MIN PRN PO LOW BLOOD SUGAR Last administered on 02/22/17 08:06; Start 02/22/17 at 08:00 Acetaminophen (Tylenol) 650 mg Q8HRS PO Last administered on 03/07/17 13:04; Start 02/22/17 at 14:00 Pantoprazole Sodium (Protonix) 40 mg DAILYAC PO Last administered on 09:21; Start 02/23/17 at 07:30 Vitamin D (Vitamin D3) 2,000 unit DAILY PO Last administered on 03/07/17 09: 22; Start 02/23/17 at 09:00 Insulin Detemir (Levemir) 10 units QHS SQ Last administered on 02/22/17 19:54 ; Start 02/22/17 at 21:00; Stop 02/23/17 at 11:02; Status DC Loperamide HCl (Imodium) 2 mg PRN Q15MIN PRN PO DIARRHEA Last administered on 02/22/17 17:30; Start 02/22/17 at 16:30 Quetiapine Fumarate (SEROquel) 12.5 mg [id number] PO Last administered on 13:29; Start 02/23/17 at 09:00; Stop 03/05/17 at 16:44; Status DC Lorazepam (Ativan) 0.25 mg DAILY PO Last administered on 02/23/17 07:52; Start 02/23/17 at 09:00; Stop 02/23/17 at 09:01; Status DC Lorazepam (Ativan) 0.5 mg BID@1400,2100 PO Last administered on 02/23/17 19: 54; Start 02/23/17 at 14:00; Stop 02/23/17 at 21:01; Status DC Lorazepam (Ativan) 0.25 mg BID@0900,1400 PO Last administered on 02/24/17 13: 59; Start 02/24/17 at 09:00; Stop 02/24/17 at 14:01; Status DC Lorazepam (Ativan) 0.5 mg HS PO Last administered on 02/24/17 20:27; Start 02/24/17 at 21:00; Stop 02/24/17 at 21:01; Status DC Lorazepam (Ativan) 0.25 mg TID PO Last administered on 02/25/17 20:19; Start 02/25/17 at 09:00; Stop 02/25/17 at 21:01; Status DC Lorazepam (Ativan) 0.25 mg BID PO Last administered on 02/26/17 20:19; Start 02/26/17 at 09:00; Stop 02/26/17 at 21:01; Status DC Lorazepam (Ativan) 0.25 mg DAILY PO Last administered on 02/27/17 08:32; Start 02/27/17 at 09:00; Stop 02/27/17 at 09:01; Status DC Insulin Detemir (Levemir) 5 units QHS SQ Last administered on 03/06/17 20:33 ; Start 02/23/17 at 21:00 Quetiapine Fumarate (SEROquel) 12.5 mg DAILYWSUP PO Last administered on 16:20; Start 02/24/17 at 17:00; Stop 03/05/17 at 16:44; Status DC Duloxetine HCl (Cymbalta) 30 mg DAILY PO Last administered on 02/28/17 08:15 ; Start 02/26/17 at 09:00; Stop 03/01/17 at 08:59; Status DC Duloxetine HCl (Cymbalta) 60 mg DAILY PO Last administered on 03/07/17 09:21 ; Start 03/01/17 at 09:00 Divalproex Sodium (Depakote) 125 mg [id number] PO Last administered on 03/03/17 08 :21; Start 02/28/17 at 09:00; Stop 03/03/17 at 13:07; Status DC Lidocaine (Lidoderm) 1 patch DAILY TD Last administered on 03/07/17 09:22; Start 03/02/17 at 12:30 Amoxicillin/ Clavulanate Potassium (Augmentin 500/ 125mg) 1 tab BID PO Last administered on 03/04/17 08:44; Start 03/02/17 at 21:00; Stop 03/04/17 at 18 :40; Status DC Divalproex Sodium (Depakote) 125 mg TID PO Last administered on 03/06/17 13: 31; Start 03/03/17 at 14:00; Stop 03/06/17 at 18:33; Status DC Nitrofurantoin Macrocrystals (Macrobid) 100 mg BID PO Last administered on 08:12; Start 03/04/17 at 21:00; Stop 03/05/17 at 13:04; Status DC Amoxicillin/ Clavulanate Potassium (Augmentin 500/ 125mg) 1 tab BID PO ; Start 03/05/17 at 21:00; Stop 03/05/17 at 21:00; Status DC Ciprofloxacin (Cipro) 500 mg Q18H PO Last administered on 03/06/17 20:29; Start 03/05/17 at 14:30; Stop 03/07/17 at 18:29; Status DC Quetiapine Fumarate (SEROquel) 12.5 mg [id number] PO Last administered on 17:38; Start 03/05/17 at 17:00 Divalproex Sodium (Depakote) 125 mg DAILY@1400 PO Last administered on 13:03; Start 03/07/17 at 14:00 Divalproex Sodium (Depakote Sprinkles) 250 mg BID PO Last administered on 03/07 09:20; Start 03/06/17 at 21:00 Lactase (Lactaid) 3,000 unit TIDAC PRN PO Lactose Intolerance; Start 03/07/17 at 18:45 Active Scripts Active Reported Zofran (Ondansetron Hcl) 4 Mg Tablet 4 Mg PO TIDAC Voltaren (Diclofenac Sodium) 100 Gm Gel..gram. 1 Mario TP BID Trazodone Hcl 50 Mg Tablet 50 Mg PO QHS Tradjenta (Linagliptin) 5 Mg Tablet 5 Mg PO DAILY Tamsulosin Hcl 0.4 Mg Cap.er.24h 0.4 Mg PO DAILY Questran Packet (Cholestyramine (With Sugar)) 4 Gm Powd.pack 1 Packet PO BID Protonix (Pantoprazole Sodium) 20 Mg Tablet.dr 20 Mg PO DAILY Klor-Con M20 (Potassium Chloride) 20 Meq Tab.er.prt 20 Meq PO BID Namenda Xr (Memantine Hcl) 14 Mg Cap.spr.24 14 Mg PO QHS Alum-Mag Hydroxide-Simeth Liq (Mag Hydrox/Al Hydrox/Simeth) 360 Ml Oral.susp 30 Ml PO PRN Q6HRS PRN Magnesium Oxide 400 Mg Tablet 400 Mg PO BID Loperamide (Loperamide Hcl) 2 Mg Tablet 2 Tab PO PRN PRN Loperamide (Loperamide Hcl) 2 Mg Tablet 2 Mg PO PRN PRN Lisinopril 10 Mg Tablet 10 Mg PO DAILY Lantus Solostar (Insulin Glargine,Hum.rec.anlog) 100 Unit/1 Ml Insuln.pen 20 Unit SQ DAILY Lactaid (Lactase) 3,000 Unit Tablet 3,000 Unit PO PRN PRN Ferrous Sulfate 325 Mg Tablet 325 Mg PO DAILY Demeclocycline Hcl 300 Mg Tablet 300 Mg PO BID Vitamin D3 (Cholecalciferol (Vitamin D3)) 1,000 Unit Tablet 1,000 Unit PO DAILY Cefdinir 300 Mg Capsule 300 Mg PO BID Ativan (Lorazepam) 0.5 Mg Tablet 0.5 Mg PO TID Ativan (Lorazepam) 0.5 Mg Tablet 0.5 Mg PO PRN TID PRN Aricept (Donepezil Hcl) 5 Mg Tablet 5 Mg PO QHS Analpram Hc 2.5%-1% Lotion (Hydrocortisone/Pramoxine) 59 Ml Lotion 1 Mario MT PRN TID PRN Acidophilus (Lactobacillus Acidophilus) 1 Each Tablet 1 Cap PO TID Tylenol (Acetaminophen) 325 Mg Tablet 325 Mg PO PRN Q4HRS PRN I have reviewed the current psychotropics carefully including drug interactions. Risk benefit ratio favors no change other than as noted in my dictated progress note. Diagnosis: Problems: (1) Hyponatremia (2) Dementia (3) Depression (4) Agitation KAMRON MENDEZ MD Mar 07, 2017 20:04
[2017-03-07] MEDS: traZODone 50 MG TABLET. PO SCH (20:58)
[2017-03-07] MEDS: DONEPEZIL HCL 5 MG TABLET. PO SCH (20:58)
[2017-03-07] MEDS: INSULIN DETEMIR 300 UNITS/3 ML INSULN.PEN. SQ SCH (21:01)
[2017-03-08] MEDS ORDERED: DEXT31GE PO (00:54)
[2017-03-08] MEDS ORDERED: DIVA125C PO (00:57)
[2017-03-08] MEDS ORDERED: DIVA125T2 PO (00:59)
[2017-03-08] MEDS ORDERED: DULO60CA6 PO (01:00)
[2017-03-08] MEDS ORDERED: INSU100I27 SQ (01:02)
[2017-03-08] MEDS ORDERED: LIDO700A39 TP (01:06)
[2017-03-08] MEDS ORDERED: MAGN2400 PO (01:09)
[2017-03-08] MEDS ORDERED: MEMA10TA PO (01:11)
[2017-03-08] MEDS ORDERED: METH29OI TP (01:12)
[2017-03-08] MEDS ORDERED: QUET25TA5 PO (01:15)
[2017-03-08] MEDS ORDERED: TRAM50TA PO (01:17)
[2017-03-08] MEDS: ACETAMINOPHEN 325 MG TABLET PO SCH (05:10)
[2017-03-08 05:44] VITALS: BP 147/78
[2017-03-08] MEDS: MEMANTINE 5 MG TABLET. PO SCH (08:50)
[2017-03-08] MEDS: CHOLESTYRAMINE/ASPARTAME 4 GM PACKET PO SCH (08:50)
[2017-03-08] MEDS: LIDOCAINE (700MG/PATCH) PATCH. TD SCH (08:50)
[2017-03-08] MEDS: TAMSULOSIN 0.4 MG CAP.ER.24H. PO SCH (08:50)
[2017-03-08] MEDS: LINAGLIPTIN 5 MG TABLET PO SCH (08:50)
[2017-03-08 08:51] VITALS: BP 147/78
[2017-03-08] MEDS: LISINOPRIL 10 MG TABLET PO SCH (08:51)
[2017-03-08] MEDS: QUEtiapine 25 MG TABLET. PO SCH ×2 (08:51→12:15)
[2017-03-08] MEDS: PANTOPRAZOLE 40 MG TABLET. PO SCH (08:51)
[2017-03-08] MEDS: FERROUS SULFATE 325 MG TABLET. PO SCH (08:51)
[2017-03-08] MEDS: DULoxetine HCL 60 MG CAPSULE.DR PO SCH (08:51)
[2017-03-08] MEDS: DIVALPROEX 125 MG CAP.SPRINK PO SCH (08:51)
[2017-03-08] MEDS: CHOLECALCIFEROL (VITAMIN D3) 1,000 UNIT TABLET PO SCH (08:52)
[2017-03-08] MEDS: MAGNESIUM OXIDE 400 MG TABLET PO SCH (08:52)
[2017-03-08] MEDS: POTASSIUM CHLORIDE 20 MEQ TABLET.ER. PO SCH (08:52)
[2017-03-08] MEDS: DEMECLOCYCLINE HCL 150 MG TABLET PO SCH (09:00)
[2017-03-08] MEDS: traMADol 50 MG TABLET PO PRN (12:15)
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
--- NOTE | 2017-03-09 04:08 | PN ---
DATE: 03/07/2017 PSYCHIATRIC PROGRESS NOTE This is a late entry for date of service 03/07/2017, covers the elements not covered in my initial note of 03/07/2017. SUBJECTIVE: I met with the patient the evening of 03/07/2017. She was staffed at a treatment team meeting with the entire team morning of 03/07/2017. Discussed the patient's history, diagnosis, and progress. In the activity therapy, she has minimal to no interaction, remains somewhat withdrawn, depressed, sleeping more in room most of the time. Complains of pain in stomach, legs and back per report. REVIEW OF SYSTEMS: Positive for the above somatic symptoms. No CV, , pulmonary, eye system symptoms on review. MENTAL STATUS EXAM: Oriented to herself. Insight, judgment, recent memory is impaired. Language function intact. Attention span short. Mood and affect somewhat withdrawn. LABORATORY DATA: Reviewed. IMPRESSION: Unchanged from initial note. PLAN: Continue current psychotropics. Depakote was increased. Cymbalta is at 60 mg a day. Adjust further as clinically indicated. Possible transition to detention on 03/08/2017. MAN Arabella MENDEZ MD DR: MERLIN/sabrina JOB#: [id number] / [id number]
--- NOTE | 2017-03-10 12:05 | DS ---
DATE OF DISCHARGE: 03/08/2017 DISCHARGE SUMMARY REASON FOR ADMISSION: Please refer to the admission history for details. Briefly, the patient is an 81-year-old female referred to us from [facility] on account of worsening, confusion, depression, significant preoccupation with somatic symptoms, constantly calling out in pain, increased agitation, anxiety, withdrawn, depressed, unable to be redirected, being attention seeking and putting herself on the floor. She had failed outpatient psychiatric interventions resulting in this referral. SIGNIFICANT FINDINGS AND CLINICAL COURSE: Following admission, the patient was seen daily individually by myself, followed medically per Dr. Kim/Dr. Terrell. The patient was extremely withdrawn, depressed, forgetful with marked somatic preoccupation. Repeat UA on 02/27/2017 was positive for UTI. She was treated on Macrobid 100 mg b.i.d. for 5 days. Adjustments were made in her psychotropics and she has seemed to respond to a combination of Cymbalta, increasing to 60 mg a day, Depakote 125 mg at 1400 250 mg b.i.d., Aricept 5 mg a day. Scheduled Ativan was tapered and discontinued. Ativan remained p.r.n. 0.5 mg b.i.d., Namenda 5 mg b.i.d., trazodone 50 mg at bedtime for insomnia, Seroquel 12.5 mg 4 times a day to augment the Cymbalta. Gradually, mood improved. She was still forgetful, but frequently much less confused than she appeared initially. No suicidal or homicidal ideation. CONDITION AT DISCHARGE: Improved. REVIEW OF SYSTEMS: Still positive for vague abdominal pain, hip pain, lower leg pain. No CV, , pulmonary, eye system symptoms on review. Ambulates with a walker. MENTAL STATUS EXAM: Oriented to herself and situation. Speech moderate latency, coherent, often responses monosyllabic. Abstraction fair, computation impaired, language function intact. Short term memory impaired. No suicidal or homicidal ideation. FINAL DIAGNOSES: Major depressive disorder, recurrent, severe, in partial remission; anxiety disorder, unspecified; major neurocognitive disorder, early Alzheimer, vascular with depression, delusions, in partial remission. Impulse control disorder. Rest diagnoses unchanged from admission. DISCHARGE MEDICATIONS: Please refer to the [facility]. DISCHARGE INSTRUCTIONS: Outpatient psychiatric and medical followup at the half-way. Time for discharge day management greater than 30 minutes. KAMRON MENDEZ MD DR: MERLIN/sabrina JOB#: [id number] / [id number]
== END 2017-03-08 12:54 | disposition home or self-care (01) | DRG 885 ==
LOC: ER 18:57 → GEROPSY 22:01
PROVIDERS: ADMIT Psychiatry & Neurology Psychiatry; ATTEND Psychiatry & Neurology Psychiatry
DX: F33.2 Major depressive disorder, recurrent severe without psychotic features (principal); N17.9 Acute kidney failure, unspecified; E87.1 Hypo-osmolality and hyponatremia; F01.51 Vascular dementia, unspecified severity, with behavioral disturbance; E11.649 Type 2 diabetes mellitus with hypoglycemia without coma; G30.0 Alzheimer's disease with early onset; F02.81 Dementia in other diseases classified elsewhere, unspecified severity, with behavioral disturbance; N39.0 Urinary tract infection, site not specified; Z88.8 Allergy status to other drugs, medicaments and biological substances; E55.9 Vitamin D deficiency, unspecified; E78.5 Hyperlipidemia, unspecified; F22 Delusional disorders; F41.9 Anxiety disorder, unspecified; F63.9 Impulse disorder, unspecified; G47.00 Insomnia, unspecified; G89.29 Other chronic pain; M25.551 Pain in right hip; M25.552 Pain in left hip; I10 Essential (primary) hypertension; K44.9 Diaphragmatic hernia without obstruction or gangrene; K58.9 Irritable bowel syndrome, unspecified; K62.89 Other specified diseases of anus and rectum; M19.90 Unspecified osteoarthritis, unspecified site; Z66 Do not resuscitate; Z79.899 Other long term (current) drug therapy; Z87.11 Personal history of peptic ulcer disease; Z87.440 Personal history of urinary (tract) infections; Z91.81 History of falling; Z87.891 Personal history of nicotine dependence; Z90.49 Acquired absence of other specified parts of digestive tract
CPT/HCPCS: 36415; 74150; 80053; 80061; 80164; 81001; 82274; 82306; 82607; 82947; 83036; 83540; 83550; 83735; 84436; 84443; 84480; 85025; 86592; 86593; 87086; 87186; 93005; 96360; J1815; 99285-25; J7030